=== PATIENT | male | born 1965 | race American Indian/Alaskan Native ===

== ENCOUNTER 2016-07-29 08:41 | Emergency (ER) | payer MEDICARE ==
[~2016-07-29 08:41] MED LIST: NACL 0.9% 500 ML IR ONE
[2016-07-29] MEDS ORDERED: NORVASC PO ONE (09:23)
--- NOTE | 2016-07-29 09:26 | Emergency Department Report ---
HPI - General Chief Complaint: Psych Time Seen by Provider: 07/29/16 09:20 - HPI HPI: This is a 51-year-old -Faro[place] male who presents to the emergency department with a complaint of depression and suicidal ideations. He does not have any particular plan as to what he would do but says "whenever comes up." He admits to a history of major depression and schizophrenia. He is on medications for this, as well as his history of hypertension, but says he has not been taking them lately secondary to his depression. He says he is depressed as he has had multiple deaths in his family back to back. He does have a previous history of inpatient psychiatric admissions and visits to [facility]. He otherwise denies any physical complaints at this time. He denies any illicit drug use or alcohol abuse. ED Past Medical Hx - Past Medical History Hx Hypertension: Yes Hx Diabetes: Yes (NO MEDICATIONS PRESCRIBED NOW) Hx Arthritis: Yes Hx Psychiatric Treatment: Yes (major depression; visual hallucinations; SI) - Surgical History Additional Surgical History: RIGHT KNEE (SCOPE). CIRCUMCISION -4 YEARS AGO - Social History Smoking Status: Never Smoker Substance Use Type: Alcohol, Cocaine, Marijuana - Medications Home Medications: Home Medications Medication Instructions Recorded Confirmed Last Taken Type ARIPiprazole [Abilify TAB] 20 mg PO QHS 12/24/15 07/29/16 05/27/16 History Abilify TAB 5 mg PO QAM 12/24/15 07/29/16 05/27/16 History Citalopram [Celexa] 40 mg PO QDAY 12/24/15 07/29/16 05/27/16 History amLODIPine [Norvasc] 10 mg PO DAILY 12/24/15 07/29/16 05/27/16 History busPIRone [Buspar] 5 mg PO TID 12/24/15 07/29/16 05/27/16 History traZODone [Desyrel] 100 mg PO QHS 12/24/15 07/29/16 05/27/16 History ED Review of Systems ROS: Stated complaint: MH Other details as noted in HPI Comment: All other systems reviewed and negative Constitutional: denies: chills, fever Eyes: denies: eye pain, eye discharge, vision change ENT: denies: ear pain, throat pain Respiratory: denies: cough, shortness of breath, wheezing Cardiovascular: denies: chest pain, palpitations Gastrointestinal: denies: abdominal pain, nausea, diarrhea Genitourinary: denies: urgency, dysuria Musculoskeletal: denies: back pain, joint swelling, arthralgia Skin: denies: rash, lesions Neurological: denies: headache, weakness, paresthesias Psychiatric: depression, suicidal thoughts. denies: auditory hallucinations, visual hallucinations Physical Exam - Physical Exam Vital Signs: Vital Signs 07/29/16 08:46 Temperature 98.3 F Pulse Rate 101 H Respiratory 20 Rate Blood Pressure 178/124 O2 Sat by Pulse 97 Oximetry Physical Exam: GENERAL: The patient is well-developed well-nourished. HEENT: Normocephalic. Atraumatic. Extraocular motions are intact. Patient has moist mucous membranes. Pupils equal reactive to light bilaterally. NECK: Supple. Trachea is midline. CHEST/LUNGS: Clear to auscultation. There is no respiratory distress noted. HEART/CARDIOVASCULAR: Regular. There is no tachycardia. There is no gallop rub or murmur. ABDOMEN: Abdomen is soft, nontender. Patient has normal bowel sounds. There is no abdominal distention. Morbidly obese habitus. SKIN: There is no rash. There is no edema. There is no diaphoresis. NEURO: The patient is awake, alert, and oriented. The patient is cooperative. The patient has no focal neurologic deficits. The patient has normal speech. MUSCULOSKELETAL: There is no tenderness or deformity. There is no limitation range of motion. There is no evidence of acute injury. ED Course Vital Signs 07/29/16 08:46 Temperature 98.3 F Pulse Rate 101 H Respiratory 20 Rate Blood Pressure 178/124 O2 Sat by Pulse 97 Oximetry ED Medical Decision Making - Lab Data Result diagrams: 07/29/16 09:39 07/29/16 09:39 - Medical Decision Making 51-year-old male presents with depression and suicidal ideations. He does have a history of depression and schizophrenia. Patient's labs are unremarkable and do not show any signs of infection, electrolyte abnormalities, renal insufficiency or significant glucose abnormalities. Blood alcohol levels negative. His vital signs of in stable throughout his ED course. He did have some hypertension but he was given his morning Norvasc and it came down to more reasonable level. Patient has been made a 1013 secondary to his suicidal ideations. He is medically cleared for psychiatric placement and the crisis therapist is been contacted to assist. - Differential Diagnosis depression, bipolar disorder, schizophrenia, substance abuse Critical Care Time: No Critical care attestation.: If time is entered above; I have spent that time in minutes in the direct care of this critically ill patient, excluding procedure time. ED Disposition Clinical Impression: Suicidal ideations Depression Qualifiers: Depression Type: unspecified Qualified Code(s): F32.9 - Major depressive disorder, single episode, unspecified Hypertension Qualifiers: Hypertension type: essential hypertension Qualified Code(s): I10 - Essential ( primary) hypertension Disposition: DC/TX PSY HOSP/PSY UNIT Is pt being admited?: No Condition: Stable Instructions: Hypertension (ED) Time of Disposition: 11:59
[2016-07-29 09:47] VITALS: BP 137/96
[2016-07-29 09:48] LABS: Basophils % (Auto) 0.8 % (0.0-1.8); Eosinophils % (Auto) 2.2 % (0.0-4.3); Hematocrit 46.4 % (35.5-45.6); Hemoglobin 15.3 gm/dl (11.8-15.2); Mean Corpuscular HGB Conc 33 % (32-34); Mean Corpuscular Hemoglobin 29 pg (28-32); Mean Corpuscular Volume 87 fl (84-94); Red Blood Count 5.31 M/mm3 (3.65-5.03); Red Cell Distribution Width 14.7 % (13.2-15.2); White Blood Count 10.5 K/mm3 (4.5-11.0)
[2016-07-29 09:52] LABS: Platelet Count 256 K/mm3 (140-440)
[2016-07-29 10:04] LABS: Anion Gap 17 mmol/L; BUN/Creatinine Ratio 13.33; Blood Urea Nitrogen 12 mg/dL (9-20); Calcium 8.6 mg/dL (8.4-10.2); Carbon Dioxide 24 mmol/L (22-30); Chloride 102.4 mmol/L (98-107); Glucose 121 mg/dL (75-100); Potassium 3.5 mmol/L (3.6-5.0); Sodium 140 mmol/L (137-145)
[2016-07-29 11:04] LABS: Urine Drugs of Abuse Note Disclamer
[2016-07-29 11:27] LABS: Bilirubin,Urine NEG (Negative); Blood,Urine NEG (Negative); Ketones,Urine TR mg/dL (Negative); Leukocyte Esterase,Urine NEG (Negative); Mucus,Urine 3+ /HPF; Nitrite,Urine NEG (Negative); Urobilinogen,Urine < 2.0 mg/dL (<2.0)
[2016-07-29] MEDS ORDERED: celeXA PO SCH (13:00)
[2016-07-29] MEDS ORDERED: BUSPAR PO SCH (14:00)
[2016-07-29] MEDS ORDERED: ABILIFY PO SCH (22:00)
[2016-07-30] MEDS ORDERED: ABILIFY PO SCH (10:00)
[2016-07-30] MEDS ORDERED: NORVASC PO SCH (10:00)
== END 2016-07-29 16:33 ==
LOC: ED 08:41
DX: F32.9 Major depressive disorder, single episode, unspecified (principal); R45.851 Suicidal ideations; I10 Essential (primary) hypertension; E11.9 Type 2 diabetes mellitus without complications; M19.90 Unspecified osteoarthritis, unspecified site; F14.10 Cocaine abuse, uncomplicated; F12.10 Cannabis abuse, uncomplicated
CPT/HCPCS: 36415; 80048; 80307; 81001; 85025; 99283; G0480; 80320

== ENCOUNTER 2017-05-16 02:02 | Emergency (ER) | payer MEDICARE ==
[2017-05-16 02:52] LABS: Basophils % (Auto) 0.5 % (0.0-1.8); Eosinophils % (Auto) 0.4 % (0.0-4.3); Hemoglobin 15.8 gm/dl (11.8-15.2); Mean Corpuscular HGB Conc 34 % (32-34); Mean Corpuscular Hemoglobin 29 pg (28-32); Mean Corpuscular Volume 86 fl (84-94); Platelet Count 243 K/mm3 (140-440); Red Blood Count 5.44 M/mm3 (3.65-5.03); Red Cell Distribution Width 14.4 % (13.2-15.2); White Blood Count 15.9 K/mm3 (4.5-11.0)
[2017-05-16 03:07] LABS: Calcium 9.2 mg/dL (8.4-10.2); Chloride 100.5 mmol/L (98-107); Potassium 3.7 mmol/L (3.6-5.0)
[2017-05-16 06:22] LABS: INR 1.07 (0.87-1.13)
[2017-05-16 06:23] LABS: Partial Thromboplastin Time 33.2 Sec. (24.2-36.6)
[2017-05-16 06:57] LABS: Urine Drugs of Abuse Note Disclamer
--- NOTE | 2017-05-16 07:06 | Cat Scan Report ---
FINAL REPORT EXAM: CT LOWER EXTREMITY RT WO CON HISTORY: Right Knee swelling TECHNIQUE: Routine axial imaging was obtained of the right knee without IV contrast with sagittal and coronal reconstructions. FINDINGS: There is moderate to severe tricompartmental osteoarthritic changes consisting of narrowing of all 3 compartments and varying degrees of marginal osteophytosis. There degenerative spurring superiorly and inferiorly. There is a moderate sized joint effusion. There are calcified loose bodies in the ventral aspect of the joint space measure up to 14.7 millimeters in diameter. There is no evidence of acute fracture. The subcutaneous tissues are unremarkable. IMPRESSION: Moderate to severe tricompartmental osteoarthritic changes with joint effusion. Multiple calcified loose bodies in the ventral aspect of the joint space. No evidence of fracture.
[2017-05-16 07:09] LABS: Bacteria,Urine 1+ /HPF (Negative); Bilirubin,Urine NEG (Negative); Blood,Urine NEG (Negative); Ketones,Urine NEG (Negative); Leukocyte Esterase,Urine NEG (Negative); Mucus,Urine 2+ /HPF; Nitrite,Urine NEG (Negative)
--- NOTE | 2017-05-16 07:09 | Emergency Department Report ---
ED Psych HPI - General Chief Complaint: Psych Stated Complaint: RT KNEE PAIN Time Seen by Provider: 05/16/17 04:58 Source: patient, EMS Mode of arrival: Stretcher Limitations: No Limitations - History of Present Illness Initial Comments: Patient presented to the ED complaining of suicide ideation. He wants to cut distraught with knife. This is because is been having right knee pain that will not go away. She also complained of right knee swelling. MD Complaint: suicidal ideation -: Gradual Associated Psychiatric Symptoms: depression, suicidal ideation Quality: constant Improves With: none Worsens With: none Context: significant life stressor, other (right knee pain and swelling.) Associated Symptoms: denies other symptoms Treatments Prior to Arrival: none If Self Harm: admits thoughts of, has plan - Related Data Home Medications Medication Instructions Recorded Confirmed Last Taken ARIPiprazole [Abilify TAB] 5 mg PO QAM 08/08/16 08/08/16 Unknown ARIPiprazole [Abilify TAB] 20 mg PO QHS 08/08/16 08/08/16 Unknown Citalopram Hydrobromide [celeXA] 40 mg PO DAILY 08/08/16 08/08/16 Unknown amLODIPine [Norvasc] 10 mg PO DAILY 08/08/16 08/08/16 Unknown busPIRone [Buspar] 5 mg PO TID 08/08/16 08/08/16 Unknown Previous Rx's Medication Instructions Recorded Last Taken Type Aspirin EC [Aspirin Enteric Coated 81 mg PO QDAY #30 tablet. 08/09/16 Unknown Rx TAB] ISOSORBIDE MONOnitrate [Imdur ER] 30 mg PO QDAY #30 tablet 08/10/16 Unknown Rx Allergies Allergy/AdvReac Type Severity Reaction Status Date / Time No Known Allergies Allergy Verified 05/26/16 12:55 ED Review of Systems ROS: Stated complaint: RT KNEE PAIN Other details as noted in HPI Constitutional: denies: chills, fever Eyes: denies: eye pain, eye discharge, vision change ENT: denies: ear pain, throat pain Respiratory: denies: cough, shortness of breath, wheezing Cardiovascular: denies: chest pain, palpitations Endocrine: no symptoms reported Gastrointestinal: denies: abdominal pain, nausea, diarrhea Genitourinary: denies: urgency, dysuria Musculoskeletal: joint swelling (right knee swelling and pain.). denies: back pain, arthralgia Skin: denies: rash, lesions Neurological: denies: headache, weakness, paresthesias Psychiatric: depression, suicidal thoughts. denies: anxiety, auditory hallucinations, visual hallucinations, homicidal thoughts Hematological/Lymphatic: denies: easy bleeding, easy bruising ED Past Medical Hx - Past Medical History Previous Medical History?: Yes Hx Hypertension: Yes Hx Congestive Heart Failure: No Hx Diabetes: Yes (NO MEDICATIONS PRESCRIBED NOW) Hx Arthritis: Yes Hx Psychiatric Treatment: Yes (major depression; visual hallucinations; SI) Hx Asthma: No Hx COPD: No - Surgical History Past Surgical History?: Yes Additional Surgical History: RIGHT KNEE (SCOPE). CIRCUMCISION -4 YEARS AGO - Social History Smoking Status: Never Smoker Substance Use Type: Alcohol, Cocaine, Heroin - Medications Home Medications: Home Medications Medication Instructions Recorded Confirmed Last Taken Type ARIPiprazole [Abilify TAB] 5 mg PO QAM 08/08/16 08/08/16 Unknown History ARIPiprazole [Abilify TAB] 20 mg PO QHS 08/08/16 08/08/16 Unknown History Citalopram Hydrobromide [celeXA] 40 mg PO DAILY 08/08/16 08/08/16 Unknown History amLODIPine [Norvasc] 10 mg PO DAILY 08/08/16 08/08/16 Unknown History busPIRone [Buspar] 5 mg PO TID 08/08/16 08/08/16 Unknown History Aspirin EC [Aspirin Enteric Coated 81 mg PO QDAY #30 tablet.dr 08/09/16 Unknown Rx TAB] ISOSORBIDE MONOnitrate [Imdur ER] 30 mg PO QDAY #30 tablet 08/10/16 Unknown Rx ED Physical Exam - General Limitations: Physical Limitation General appearance: alert, in no apparent distress - Head Head exam: Present: atraumatic, normocephalic - Eye Eye exam: Present: normal appearance - ENT ENT exam: Present: mucous membranes moist - Neck Neck exam: Present: normal inspection - Respiratory Respiratory exam: Present: normal lung sounds bilaterally. Absent: respiratory distress - Cardiovascular Cardiovascular Exam: Present: regular rate, normal rhythm. Absent: systolic murmur, diastolic murmur, rubs, gallop - GI/Abdominal GI/Abdominal exam: Present: soft, normal bowel sounds - Rectal Rectal exam: Present: deferred - Extremities Exam Extremities exam: Present: tenderness (right knee), normal capillary refill, joint swelling (right knee). Absent: pedal edema, calf tenderness - Expanded Lower Extremity Exam Right Knee exam: Present: tenderness, swelling, effusion - Back Exam Back exam: Present: normal inspection - Neurological Exam Neurological exam: Present: alert, oriented X3 - Psychiatric Psychiatric exam: Present: normal affect, normal mood - Skin Skin exam: Present: warm, dry, intact, normal color. Absent: rash ED Course Vital Signs 05/16/17 05/16/17 05/16/17 02:23 02:44 03:01 Temperature 98.5 F Pulse Rate 20 L 104 H 85 Respiratory 20 18 18 Rate Blood Pressure 92/69 98/74 101/77 [Left] O2 Sat by Pulse 98 99 99 Oximetry 05/16/17 05/16/17 05/16/17 04:00 05:02 06:56 Temperature Pulse Rate 94 H 97 H Respiratory 20 20 20 Rate Blood Pressure 115/47 126/82 [Left] O2 Sat by Pulse 99 99 98 Oximetry ED Medical Decision Making - Lab Data Result diagrams: 05/16/17 02:39 05/16/17 02:39 - Medical Decision Making Patient is medically cleared for psychiatric evaluation. - Differential Diagnosis right knee pain, arthritis, suicide ideation with a plan. Critical care attestation.: If time is entered above; I have spent that time in minutes in the direct care of this critically ill patient, excluding procedure time. ED Disposition Clinical Impression: Suicide ideation, Arthritis of right knee Disposition: DC/TX-65 PSY HOSP/PSY UNIT Is pt being admited?: No Does the pt Need Aspirin: No Condition: Stable Referrals: PRIMARY CARE, [Primary Care Provider] - 3-5 Days
--- NOTE | 2017-05-16 08:17 | XRay Report ---
XRAY RIGHT KNEE 2 VIEWS: 05/16/17 02:02:00 CLINICAL: Fall and knee pain. FINDINGS: Severe narrowing of the lateral joint space with large osteophytes. Medial joint space narrowing with osteophytes. A varus deformity. Severe patellofemoral joint osteoarthritis. Probable small knee joint effusion. Anterior subcutaneous soft tissue edema. No fracture or dislocation. IMPRESSION: Severe osteoarthritis and probable small knee joint effusion.
[2017-05-16 08:31] VITALS: BP 132/68
[2017-05-16] MEDS ORDERED: TYLENOL PO ONE (10:01)
[2017-05-16] MEDS ORDERED: MOTRIN PO ONE (10:01)
--- NOTE | 2017-05-16 11:29 | Consultation ---
History of Present Illness - Reason for Consult Consult date: 05/16/17 Reason for consult: Mental Health Evaluation Requesting physician: FLAKITO MENDES - Chief Complaint Chief complaint: "I am suicidal" - History of Present Psychiatric Illness Patient presented to the ED complaining of SI's. Today patient is calm and cooperative during the assessment. He stated that he have not taken his medication foe depression in 7 days. He stated that his right knee is giving him problem so he could not make it to the pharmacy to fill his prescriptions. He stated that he do not like his current care home because of the drugs that' s in the area. He stated that he is stressed out about everything in his life. He still endorses SI' with a plan to overdose. He stated past suicide attempts by cutting his wrist and overdosing on pills. He stated using cocaine often to help with his depression symptoms. He stated that he hear voices when he use cocaine, but currently none at this time. He stated that a lot of his family members during and hols, so he feels depressed a lot during this time a year. He denies HI's and AVH's. He admit to sleep disturbance , but denies any manic episodes. He denies excessive alcohol consumption (etoh) . He rate his depression 7/10, with 10 being the worse. Medications and Allergies Allergies Allergy/AdvReac Type Severity Reaction Status Date / Time No Known Allergies Allergy Verified 05/26/16 12:55 Home Medications Medication Instructions Recorded Confirmed Last Taken Type ARIPiprazole [Abilify TAB] 5 mg PO QAM 08/08/16 08/08/16 Unknown History ARIPiprazole [Abilify TAB] 20 mg PO QHS 08/08/16 08/08/16 Unknown History Citalopram Hydrobromide [celeXA] 40 mg PO DAILY 08/08/16 08/08/16 Unknown History amLODIPine [Norvasc] 10 mg PO DAILY 08/08/16 08/08/16 Unknown History busPIRone [Buspar] 5 mg PO TID 08/08/16 08/08/16 Unknown History Aspirin EC [Aspirin Enteric Coated 81 mg PO QDAY #30 tablet. 08/09/16 Unknown Rx TAB] ISOSORBIDE MONOnitrate [Imdur ER] 30 mg PO QDAY #30 tablet 08/10/16 Unknown Rx Past psychiatric history - Past Medical History Past Medical History: diabetes, other (right knee pain) Past Surgical History: No surgical history - past Psychiatric treatment and history Psych: Depression psychiatric treatment history: Multiple inpatient psy settings. Denies a fam psy hx. - Social History Social history: other (Resides at a care home) Mental Status Exam - Vital signs Last Vital Signs Temp 98.3 F 05/16/17 08:15 Pulse 86 05/16/17 08:15 Resp 18 05/16/17 08:15 BP 132/68 05/16/17 08:15 Pulse Ox 97 05/16/17 08:15 - Exam Narrative exam: MSE: Appearance: calm, cooperative Behavior: regular eye contact Speech: regular rate and tone Mood: "depressed" Affect: flat Thought Process: circumstantial Thought Content: denies HI's and AVH's Motor Activity: ambulatory Cognition: A/O x3 Insight: fair Judgment: variable Results Result Diagrams: 05/16/17 02:39 05/16/17 02:39 Abnormal lab results 05/16/17 05/16/17 Range/Units 02:39 02:39 WBC 15.9 H (4.5-11.0) K/mm3 RBC 5.44 H (3.65-5.03) M/mm3 Hgb 15.8 H (11.8-15.2) gm/dl Hct 47.0 H (35.5-45.6) % Bradley % (Auto) 14.5 H (0.0-7.3) % Bradley # 2.3 H (0.0-0.8) K/mm3 Seg Neutrophils % 70.8 H (40.0-70.0) % Seg Neutrophils # 11.3 H (1.8-7.7) K/mm3 Glucose 103 H (75-100) mg/dL All other labs normal. Assessment and Plan Assessment and plan: Impression: MDD Severe Type. SAD. Today patient is calm and cooperative during the assessment. Patient endorses SI's with a plan. DDx: R/O Bipolar Recommendation/Plan: Continue 1013 with placement to inpatient psy services. Start Remeron 15 mg PO HS for depression/sleep consolidation. Discussed possible suicidality/medication induced lizzy with patient reference Remeron. Fund Director involvement, patient may need placement to a new care home.
[2017-05-16] MEDS ORDERED: REMERON PO SCH (22:00)
== END 2017-05-16 13:06 ==
LOC: ED 02:02
DX: R45.851 Suicidal ideations (principal); M25.561 Pain in right knee
CPT/HCPCS: 29505; 36415; 73560; 73700; 80048; 80307; 81001; 84443; 85025; 85610; 85730; 87040; 99285; G0480; 80320

== ENCOUNTER 2017-09-03 07:17 | Inpatient (IN) | payer MEDICARE ==
--- NOTE | 2017-09-03 08:25 | XRay Report ---
ROUTINE CHEST, TWO VIEWS: HISTORY: Shortness of breath. Compared to 08/08/16. There is poor inspiration, however, mild cardiomegaly and mild central pulmonary venous congestion are suspected. The lungs are generally clear otherwise. No large infiltrate, pleural effusion or pneumothorax. IMPRESSION: Mild cardiomegaly and pulmonary venous congestion but no CHF.
[2017-09-03 08:43] LABS: Basophils % (Auto) 0.4 % (0.0-1.8); Eosinophils % (Auto) 0.2 % (0.0-4.3); Lymphocytes # (Auto) 0.7 K/mm3 (1.2-5.4); Mean Corpuscular HGB Conc 34 % (32-34); Mean Corpuscular Hemoglobin 29 pg (28-32); Mean Corpuscular Volume 86 fl (84-94); Monocytes # (Auto) 1.3 K/mm3 (0.0-0.8); Monocytes % (Auto) 11.5 % (0.0-7.3); Platelet Count 261 K/mm3 (140-440); Red Blood Count 5.79 M/mm3 (3.65-5.03); Red Cell Distribution Width 15.6 % (13.2-15.2)
[2017-09-03 08:46] LABS: BUN/Creatinine Ratio 18; Blood Urea Nitrogen 11 mg/dL (9-20); Calcium 8.8 mg/dL (8.4-10.2); Hemolysis Index 92
[2017-09-03 09:10] LABS: Bilirubin,Urine MOD (Negative); Blood,Urine SM (Negative); Color,Urine Amber (Yellow); Mucus,Urine 3+ /HPF
[2017-09-03 09:14] LABS: Ictotest,Urine Positive (Negative)
[2017-09-03 09:25] LABS: Lipase 1925 units/L (13-60)
[2017-09-03] MEDS ORDERED: NACL 0.9% 1000 ML 1,000 ML IV ONE (10:54)
[2017-09-03] MEDS ORDERED: ZOFRAN IV ONE (10:54)
[2017-09-03] MEDS ORDERED: MORPHINE IV ONE (10:54)
--- NOTE | 2017-09-03 10:58 | Emergency Department Report ---
ED Abdominal Pain HPI - General Chief Complaint: Abdominal Pain Stated Complaint: ABD PAIN Time Seen by Provider: 09/03/17 10:48 Source: patient Mode of arrival: Ambulatory Limitations: No Limitations - History of Present Illness Initial Comments: Patient is 52 years old -Surinamese male with history of hypertension and arthritis. Patient presented to the ER with epigastric abdominal pain, started last night after he ate a hamburger [place]. Pain associated with nausea and vomiting. Patient denied any fever or diarrhea. No chest pain or shortness of breath MD Complaint: abdominal pain -: Last night Location: epigastric Radiation: none Severity scale (0 -10): 6 - Related Data Home Medications Medication Instructions Recorded Confirmed Last Taken ARIPiprazole [Abilify] 10 mg PO QAM 09/03/17 09/03/17 09/03/17 Meloxicam [Mobic] 15 mg PO DAILY 09/03/17 09/03/17 09/03/17 traZODone [Desyrel] 200 mg PO QHS 09/03/17 09/03/17 09/02/17 Allergies Allergy/AdvReac Type Severity Reaction Status Date / Time No Known Allergies Allergy Verified 05/26/16 12:55 ED Review of Systems ROS: Stated complaint: ABD PAIN Other details as noted in HPI Comment: All other systems reviewed and negative Constitutional: denies: chills, fever Respiratory: denies: cough, orthopnea, shortness of breath, SOB with exertion, SOB at rest Cardiovascular: denies: chest pain, palpitations, dyspnea on exertion, orthopnea Gastrointestinal: abdominal pain, nausea, vomiting. denies: diarrhea, constipation, hematemesis, melena, hematochezia Genitourinary: denies: urgency, dysuria, frequency, hematuria Musculoskeletal: denies: back pain Neurological: denies: headache, weakness, numbness, paresthesias, confusion ED Past Medical Hx - Past Medical History Previous Medical History?: Yes Hx Hypertension: Yes Hx Congestive Heart Failure: No Hx Diabetes: Yes (NO MEDICATIONS PRESCRIBED NOW) Hx Arthritis: Yes Hx Psychiatric Treatment: Yes (major depression; visual hallucinations; SI) Hx Asthma: No Hx COPD: No - Surgical History Past Surgical History?: Yes Additional Surgical History: RIGHT KNEE (SCOPE). CIRCUMCISION -4 YEARS AGO - Social History Smoking Status: Never Smoker Substance Use Type: Prescribed - Medications Home Medications: Home Medications Medication Instructions Recorded Confirmed Last Taken Type ARIPiprazole [Abilify] 10 mg PO QAM 09/03/17 09/03/17 09/03/17 History Meloxicam [Mobic] 15 mg PO DAILY 09/03/17 09/03/17 09/03/17 History traZODone [Desyrel] 200 mg PO QHS 09/03/17 09/03/17 09/02/17 History ED Physical Exam - General Limitations: No Limitations General appearance: alert, in distress (due to pain.) - Head Head exam: Present: atraumatic, normocephalic, normal inspection - ENT ENT exam: Present: normal exam, normal orophraynx, mucous membranes moist - Neck Neck exam: Present: normal inspection, full ROM. Absent: tenderness, meningismus, lymphadenopathy - Respiratory Respiratory exam: Present: normal lung sounds bilaterally. Absent: respiratory distress, wheezes, rales, rhonchi, stridor, chest wall tenderness, accessory muscle use, decreased breath sounds, prolonged expiratory - Cardiovascular Cardiovascular Exam: Present: regular rate, normal rhythm, normal heart sounds - GI/Abdominal GI/Abdominal exam: Present: soft, tenderness, normal bowel sounds. Absent: distended, guarding, rebound, rigid, organomegaly, mass, bruit, pulsatile mass, hernia - Extremities Exam Extremities exam: Present: normal inspection, full ROM, normal capillary refill - Back Exam Back exam: Present: normal inspection, full ROM. Absent: CVA tenderness (R), CVA tenderness (L) - Neurological Exam Neurological exam: Present: alert, oriented X3, CN II-XII intact, normal gait - Psychiatric Psychiatric exam: Present: normal affect - Skin Skin exam: Present: warm, intact, normal color ED Course Vital Signs 09/03/17 09/03/17 07:42 09:18 Temperature 97.8 F Pulse Rate 100 H Respiratory 24 Rate Blood Pressure 208/135 Blood Pressure 136/106 [Right] O2 Sat by Pulse 95 Oximetry ED Medical Decision Making - Lab Data Result diagrams: 09/03/17 08:14 09/03/17 08:14 - Radiology Data Radiology results: report reviewed Referring Physician: SANTA CESAR Patient Name: ANNY TESFAYE Date of : 1965 Sex: Male Report Date: 2017-09-03 Report Status: Finalized Findings [facility] [address] [place] [address] Cat Scan Report Signed Patient: ANNY TESFAYE MR#: [id number] : 1965 Acct:[id number] Age/Sex: 52 / M ADM Date: 09/03/17 Loc: ED Attending Dr: Ordering Physician: SANTA CESAR Date of Service: 09/03/17 Procedure(s): CT abdomen pelvis w con Accession Number(s): [id number] cc: SANTA CESAR CT ABDOMEN PELVIS WITH CONTRAST: HISTORY: abdominal pain. COMPARISON: none. TECHNIQUE: Helical CT in 1.25mm intervals following IV contrast. Sagittal and coronal reconstructions. FINDINGS: Lung bases: Normal. Liver: Normal. Biliary system: Within normal limits. No calcified gallstones are detected. Pancreas: The pancreas is diffusely thickened and edematous. There is moderate fluid surrounding the pancreatic bed and extending to the left anterior pararenal space. No abscess, free air or large pseudocyst is identified. Spleen: Normal. Kidneys/ureters/bladder: Normal. Adrenal glands: Normal. Aorta: Normal. Intestines: Normal. Appendix: Normal. Pelvic viscera: Normal. Adenopathy: None. Musculoskeletal: Moderate osteoarthritic changes in the lower lumbar spine and bilateral hips. IMPRESSION: Acute pancreatitis. Transcribed By: TTR Dictated By: ROSEMARY MCLEAN JR, MD Electronically Authenticated By: ROSEMARY MCLEAN JR, MD Signed Date/Time: 09/03/17 1159 DD/ 56 TD/TT: 09/03/17 115 - Medical Decision Making Discussed with Dr. Gutierres, I presented the patient to him, he agreed to admit to his service. Critical care attestation.: If time is entered above; I have spent that time in minutes in the direct care of this critically ill patient, excluding procedure time. ED Disposition Clinical Impression: Morbid obesity, Acute pancreatitis, Abdominal pain Disposition: OP ADMIT IP TO THIS HOSP Is pt being admited?: Yes Condition: Stable Referrals: PRIMARY CARE, [Primary Care Provider] - 3-5 Days
[2017-09-03 11:24] LABS: Albumin 3.3 g/dL (3.9-5); Bilirubin,Direct 1.8 mg/dL (0-0.2)
--- NOTE | 2017-09-03 12:07 | Cat Scan Report ---
CT ABDOMEN PELVIS WITH CONTRAST: HISTORY: abdominal pain. COMPARISON: none. TECHNIQUE: Helical CT in 1.25mm intervals following IV contrast. Sagittal and coronal reconstructions. FINDINGS: Lung bases: Normal. Liver: Normal. Biliary system: Within normal limits. No calcified gallstones are detected. Pancreas: The pancreas is diffusely thickened and edematous. There is moderate fluid surrounding the pancreatic bed and extending to the left anterior pararenal space. No abscess, free air or large pseudocyst is identified. Spleen: Normal. Kidneys/ureters/bladder: Normal. Adrenal glands: Normal. Aorta: Normal. Intestines: Normal. Appendix: Normal. Pelvic viscera: Normal. Adenopathy: None. Musculoskeletal: Moderate osteoarthritic changes in the lower lumbar spine and bilateral hips. IMPRESSION: Acute pancreatitis.
[2017-09-03] MEDS ORDERED: APRESOLINE IV ONE (14:46)
[2017-09-03] MEDS ORDERED: APRESOLINE ONE (14:51)
[2017-09-03] MEDS ORDERED: SODIUM CHLORIDE FLUSH SYRINGE 10 ML IV PRN (17:02)
[2017-09-03] MEDS ORDERED: MORPHINE IV PRN (17:02)
[2017-09-03] MEDS ORDERED: TYLENOL PO PRN (17:02)
[2017-09-03] MEDS ORDERED: ZOFRAN IV PRN (17:02)
--- NOTE | 2017-09-03 17:02 | History and Physical Report ---
History of Present Illness Date of examination: 09/03/17 Date of admission: 09/03/17 13:42 Chief complaint: CC Severe epigastric pain since last night History of present illness: History of Present Illness: 52 y/o AAM morbidly obese with history of DJD Depression and schizophrenia comes in for severe epigastric pain since last night after eating a Hamburger.Pain is sharp and 10/10.Associated with Nausea.No similar episodes in the past.No sob.No fever or chills.No recent travel.No exacerbating or relieving factors. Past Medical History Hypertension: Yes Diabetes: Yes (NO MEDICATIONS PRESCRIBED NOW) Arthritis: Yes, Major depression; Visual hallucinations; SI) Surgical History Past Surgical History?: Yes Additional Surgical History: RIGHT KNEE (SCOPE). CIRCUMCISION -4 YEARS AGO Social History Smoking Status: Never Smoker Substance Use Type: Prescribed Family History Htn Medications Home Medications: Home Medications Medication Instructions Recorded Confirmed Last Taken Type ARIPiprazole [Abilify] 10 mg PO QAM 09/03/17 09/03/17 09/03/17 History Meloxicam [Mobic] 15 mg PO DAILY 09/03/17 09/03/17 09/03/17 History traZODone [Desyrel] 200 mg PO QHS 09/03/17 09/03/17 09/02/17 History Review of Systems ROS: Stated complaint: ABD PAIN Other details as noted in HPI Comment: All other systems reviewed and negative Constitutional: denies: chills, fever Respiratory: denies: cough, orthopnea, shortness of breath, SOB with exertion, SOB at rest Cardiovascular: denies: chest pain, palpitations, dyspnea on exertion, orthopnea Gastrointestinal: abdominal pain, nausea, vomiting. denies: diarrhea, constipation, hematemesis, melena, hematochezia Genitourinary: denies: urgency, dysuria, frequency, hematuria Musculoskeletal: denies: back pain Neurological: denies: headache, weakness, numbness, paresthesias, confusion Medications and Allergies Allergies Allergy/AdvReac Type Severity Reaction Status Date / Time No Known Allergies Allergy Verified 05/26/16 12:55 Home Medications Medication Instructions Recorded Confirmed Last Taken Type ARIPiprazole [Abilify] 10 mg PO QAM 09/03/17 09/03/17 09/03/17 History Meloxicam [Mobic] 15 mg PO DAILY 09/03/17 09/03/17 09/03/17 History traZODone [Desyrel] 200 mg PO QHS 09/03/17 09/03/17 09/02/17 History Active Meds: Active Medications Influenza Virus Vaccine Quadrival (Fluarix Quad 4990-4121(36 Mos+) 0.5 ml IM .ONCE ONE Stop: 09/04/17 12:01 Pneumococcal Polyvalent Vaccine (Pneumovax 23) 0.5 ml IM .ONCE ONE Stop: 09/04/17 12:01 Exam - Constitutional Vitals: Temp Pulse Resp BP Pulse Ox 97.8 F 92 H 16 151/93 98 09/03/17 07:42 09/03/17 15:46 09/03/17 15:46 09/03/17 15:46 09/03/17 15:46 General appearance: Present: no acute distress, well-nourished - EENT Eyes: Present: PERRL ENT: hearing intact, clear oral mucosa - Neck Neck: Present: supple, normal ROM - Respiratory Respiratory effort: normal Respiratory: bilateral: CTA - Cardiovascular Heart rate: 80 Rhythm: regular Heart Sounds: Present: S1 & S2. Absent: rub, click - Extremities Extremities: no ischemia, pulses intact, pulses symmetrical, No edema Peripheral Pulses: within normal limits - Abdominal General gastrointestinal: Present: tender, non-distended, normal bowel sounds Localized gastrointestinal: tender: diffuse, guarding: epigastric periumbilical Male genitourinary: Present: normal - Rectal Rectal Exam: deferred - Integumentary Integumentary: Present: clear, warm, dry - Musculoskeletal Musculoskeletal: gait normal, strength equal bilaterally - Psychiatric Psychiatric: appropriate mood/affect, intact judgment & insight - Neurologic Neurologic: CNII-XII intact, moves all extremities - Allied Health Allied health notes reviewed: nursing, case management Results - Labs CBC & Chem 7: 09/03/17 08:14 09/03/17 08:14 Labs: Laboratory Last Values WBC 10.9 K/mm3 (4.5-11.0) 09/03/17 08:14 RBC 5.79 M/mm3 (3.65-5.03) H 09/03/17 08:14 Hgb 17.0 gm/dl (11.8-15.2) H 09/03/17 08:14 Hct 50.0 % (35.5-45.6) H 09/03/17 08:14 MCV 86 fl (84-94) 09/03/17 08:14 MCH 29 pg (28-32) 09/03/17 08:14 MCHC 34 % (32-34) 09/03/17 08:14 RDW 15.6 % (13.2-15.2) H 09/03/17 08:14 Plt Count 261 K/mm3 (140-440) 09/03/17 08:14 Lymph % (Auto) 6.0 % (13.4-35.0) L 09/03/17 08:14 [place] % (Auto) 11.5 % (0.0-7.3) H 09/03/17 08:14 Eos % (Auto) 0.2 % (0.0-4.3) 09/03/17 08:14 Baso % (Auto) 0.4 % (0.0-1.8) 09/03/17 08:14 Lymph # 0.7 K/mm3 (1.2-5.4) L 09/03/17 08:14 [place] # 1.3 K/mm3 (0.0-0.8) H 09/03/17 08:14 Eos # 0.0 K/mm3 (0.0-0.4) 09/03/17 08:14 Baso # 0.0 K/mm3 (0.0-0.1) 09/03/17 08:14 Seg Neutrophils % 81.9 % (40.0-70.0) H 09/03/17 08:14 Seg Neutrophils # 8.9 K/mm3 (1.8-7.7) H 09/03/17 08:14 Sodium 138 mmol/L (137-145) 09/03/17 08:14 Potassium 3.6 mmol/L (3.6-5.0) 09/03/17 08:14 Chloride 97.1 mmol/L (98-107) L 09/03/17 08:14 Carbon Dioxide 24 mmol/L (22-30) 09/03/17 08:14 Anion Gap 21 mmol/L 09/03/17 08:14 BUN 11 mg/dL (9-20) 09/03/17 08:14 Creatinine 0.6 mg/dL (0.8-1.5) L 09/03/17 08:14 Estimated GFR > 60 ml/min 09/03/17 08:14 BUN/Creatinine Ratio 18 % 09/03/17 08:14 Glucose 184 mg/dL (75-100) H 09/03/17 08:14 Calcium 8.8 mg/dL (8.4-10.2) 09/03/17 08:14 Total Bilirubin 3.00 mg/dL (0.1-1.2) H 09/03/17 08:14 Direct Bilirubin 1.8 mg/dL (0-0.2) H 09/03/17 08:14 Indirect Bilirubin 1.2 mg/dL 09/03/17 08:14 AST 228 units/L (5-40) H 09/03/17 08:14 ALT 174 units/L (7-56) H 09/03/17 08:14 Alkaline Phosphatase 264 units/L (35-129) H 09/03/17 08:14 Troponin T < 0.010 ng/mL (0.00-0.029) 09/03/17 08:14 Total Protein 7.7 g/dL (6.3-8.2) 09/03/17 08:14 Albumin 3.3 g/dL (3.9-5) L 09/03/17 08:14 Albumin/Globulin Ratio 0.8 % 09/03/17 08:14 Lipase 1925 units/L (13-60) H 09/03/17 08:14 Urine Color [place] (Yellow) 09/03/17 Unknown Urine Turbidity Clear (Clear) 09/03/17 Unknown Urine pH 5.0 (5.0-7.0) 09/03/17 Unknown Ur Specific [place] 1.020 (1.003-1.030) 09/03/17 Unknown Urine Protein 30 mg/dl mg/dL (Negative) 09/03/17 Unknown Urine Glucose (UA) Neg mg/dL (Negative) 09/03/17 Unknown Urine Ketones Neg mg/dL (Negative) 09/03/17 Unknown Urine Blood Sm (Negative) 09/03/17 Unknown Urine Nitrite Neg (Negative) 09/03/17 Unknown Urine Bilirubin Mod (Negative) 09/03/17 Unknown Urine Ictotest Positive (Negative) 09/03/17 Unknown Urine Urobilinogen 4.0 mg/dL (<2.0) 09/03/17 Unknown Ur Leukocyte Esterase Neg (Negative) 09/03/17 Unknown Urine WBC (Auto) 5.0 /HPF (0.0-6.0) 09/03/17 Unknown Urine RBC (Auto) 5.0 /HPF (0.0-6.0) 09/03/17 Unknown U Epithel Cells (Auto) 3.0 /HPF (0-13.0) 09/03/17 Unknown Urine Mucus 3+ /HPF 09/03/17 Unknown - Imaging and Cardiology CT scan - abdomen: report reviewed (C/w Pancreatitis) Assessment and Plan Advance Directives: Yes (Full code) VTE prophylaxis?: Mechanical Plan of care discussed with patient/family: Yes - Patient Problems (1) Acute pancreatitis Current Visit: Yes Status: Acute Qualifiers: Pancreatitis type: idiopathic Plan to address problem: Probably sec to gall stone Liver enzymes elevated CT Abdomen c/w Pancreatitis NPO IV fluids IV Analgesics TPN after 72 hrs if necessary Lipase is 1925 (2) Gall stone pancreatitis Current Visit: Yes Status: Acute Plan to address problem: Same as above (3) Transaminitis Current Visit: Yes Status: Acute Plan to address problem: sec to Gall stone induced Hepatitis GI consult HIDA scan ???-will defer to Hospitalist team. (4) Morbid obesity Current Visit: Yes Status: Chronic Plan to address problem: Counselled (5) Malnutrition Current Visit: Yes Status: Chronic Qualifiers: Malnutrition type: protein-calorie malnutrition Protein-calorie malnutrition severity: mild Qualified Code(s): E44.1 - Mild protein-calorie malnutrition Plan to address problem: Dietary consult (6) Depression Current Visit: Yes Status: Chronic Qualifiers: Depression Type: unspecified Qualified Code(s): F32.9 - Major depressive disorder, single episode, unspecified Plan to address problem: Cont Psych meds (7) Schizophrenia in remission Current Visit: Yes Status: Chronic Plan to address problem: Cont psych meds (8) DVT prophylaxis Current Visit: Yes Status: Acute Plan to address problem: On Heparin
[2017-09-03] MEDS: D5NS 1,000 ML IV SCH (17:29)
[2017-09-03] MEDS: DILAUDID IV PRN ×2 (17:29→21:06)
[2017-09-03] MEDS: DESYREL PO SCH (21:06)
[2017-09-03] MEDS: PEPCID IV SCH (21:06)
[2017-09-03] MEDS: SODIUM CHLORIDE FLUSH SYRINGE 10 ML IV SCH (21:08)
[2017-09-04] MEDS: D5NS 1,000 ML IV SCH (02:06)
[2017-09-04] MEDS: DILAUDID IV PRN ×4 (02:06→17:12)
[2017-09-04] MEDS ORDERED: NACL 0.9% 1000 ML 1,000 ML IV SCH (05:00)
[2017-09-04 06:54] LABS: Basophils % (Auto) 0.2 % (0.0-1.8); Hematocrit 47.3 % (35.5-45.6); Hemoglobin 15.3 gm/dl (11.8-15.2); Lymphocytes # (Auto) 0.9 K/mm3 (1.2-5.4); Lymphocytes % (Auto) 6.3 % (13.4-35.0); Mean Corpuscular HGB Conc 32 % (32-34); Mean Corpuscular Hemoglobin 29 pg (28-32); Mean Corpuscular Volume 88 fl (84-94); Monocytes # (Auto) 2.1 K/mm3 (0.0-0.8); Monocytes % (Auto) 15.2 % (0.0-7.3); Platelet Count 234 K/mm3 (140-440); Red Blood Count 5.37 M/mm3 (3.65-5.03); Red Cell Distribution Width 16.1 % (13.2-15.2)
[2017-09-04 07:17] LABS: Lipase 286 units/L (13-60)
[2017-09-04 07:19] LABS: Alanine Aminotransferase 153 units/L (7-56); BUN/Creatinine Ratio 27; Blood Urea Nitrogen 16 mg/dL (9-20); Calcium 8.6 mg/dL (8.4-10.2); Hemolysis Index 5
[2017-09-04 07:23] LABS: Bilirubin,Direct 4.2 mg/dL (0-0.2)
[2017-09-04] MEDS ORDERED: KCL 10MEQ/100ML 10 MEQ/100 ML BAG IV SCH (09:00)
--- NOTE | 2017-09-04 09:40 | Gastroenterology Consultation ---
<JIMMY GRANADOS - Last Filed: 09/04/17 09:56> History of Present Illness - Reason for Consult Consult date: 09/04/17 pancreatitis Requesting physician: PRASAD MEJÍA - History of Present Illness Patient is a 52 y/o male with PMH of morbid obesity, HTN, DM, arthritis, DJD depression, and schizophrenia who presented to ED with c/o epigastric pain with associated N/V. LFTs and lipase was noted to be elevated on admission. Abd CT showed acute pancreatitis. Abd U/S is pending. This morning pt was sitting on the side of the bed w/o acute distress. He reports epigastric pain is intermittent and radiates to LUQ and RUQ. N/V is now improving. Symptoms exacerbated with PO intake. Denies fever, CP, SOB, jaundice, heartburn, dysphagia, odynophagia, diarrhea, constipation, or signs of bleeding such as hematemesis, melena, or hematochezia. No hx or Fhx of liver disease. Drinks on average a 12pk of beer a month. Past History Past Medical History: arthritis, diabetes, hypertension, other (DJD depression, schizophrenia, morbid obesity) Past Surgical History: Other (right knee scope, circumcision) Social history: other (drinks 12pk a month of beer). denies: smoking Medications and Allergies Allergies Allergy/AdvReac Type Severity Reaction Status Date / Time No Known Allergies Allergy Verified 05/26/16 12:55 Home Medications Medication Instructions Recorded Confirmed Last Taken Type ARIPiprazole [Abilify] 10 mg PO QAM 09/03/17 09/03/17 09/03/17 History Meloxicam [Mobic] 15 mg PO DAILY 09/03/17 09/03/17 09/03/17 History traZODone [Desyrel] 200 mg PO QHS 09/03/17 09/03/17 09/02/17 History Active Meds: Active Medications Acetaminophen (Tylenol) 650 mg PO Q4H PRN PRN Reason: Pain MILD(1-3)/Fever >100.5/BYNUM Aripiprazole (Abilify) 10 mg PO QAM LEV Famotidine (Pepcid) 20 mg IV BID LEV Last Admin: 09/03/17 21:06 Dose: 20 mg Heparin Sodium (Porcine) (Heparin) 5,000 unit SUB-Q Q12HR [facility] Hydromorphone HCl (Dilaudid) 1 mg IV Q3H PRN PRN Reason: Pain , Severe (7-10) Last Admin: 09/04/17 06:27 Dose: 1 mg Sodium Chloride (Nacl 0.9% 1000 Ml) 1,000 mls @ 200 mls/hr IV DIRECT LEV Last Admin: 09/04/17 06:28 Dose: 200 mls/hr Potassium Chloride 40 meq/ (Sodium Chloride) 520 mls @ 125 mls/hr IV ONCE ONE Stop: 09/04/17 14:09 Influenza Virus Vaccine Quadrival (Fluarix Quad [id number](36 Mos+) 0.5 ml IM .ONCE ONE Stop: 09/04/17 12:01 Morphine Sulfate (Morphine) 2 mg IV Q4H PRN PRN Reason: Pain, Moderate (4-6) Ondansetron HCl (Zofran) 4 mg IV Q8H PRN PRN Reason: Nausea And Vomiting Last Admin: 09/04/17 06:28 Dose: 4 mg Pneumococcal Polyvalent Vaccine (Pneumovax 23) 0.5 ml IM .ONCE ONE Stop: 09/04/17 12:01 Sodium Chloride (Sodium Chloride Flush Syringe 10 Ml) 10 ml IV BID [facility] Last Admin: 09/03/17 21:08 Dose: 10 ml Sodium Chloride (Sodium Chloride Flush Syringe 10 Ml) 10 ml IV PRN PRN PRN Reason: LINE FLUSH Trazodone HCl (Desyrel) 200 mg PO QHS [facility] Last Admin: 09/03/17 21:06 Dose: 200 mg Review of Systems - Review of Systems All systems: negative Gastrointestinal: abdominal pain, nausea, vomiting Exam - Constitutional Vital Signs: Temp Pulse Resp BP Pulse Ox 98.7 F 115 H 24 157/110 91 09/04/17 08:29 09/04/17 08:29 09/04/17 08:29 09/04/17 08:29 09/04/17 08:29 General appearance: no acute distress, obese (morbidly) - EENT Eyes: PERRL, EOM intact - Respiratory Respiratory: bilateral: CTA - Cardiovascular Rhythm: other (tachycardia) Heart Sounds: Present: S1 & S2 - Gastrointestinal General gastrointestinal: Present: soft, tender (mild TTP in epigastric area/RUQ /LUQ), non-distended, normal bowel sounds - Neurologic Neurological: alert and oriented x3 - Labs CBC & Chem 7: 09/04/17 06:01 09/04/17 06:01 Lab Results: Laboratory Results - last 24 hr 09/03/17 09/03/17 09/04/17 08:14 17:39 06:01 WBC 13.8 H RBC 5.37 H Hgb 15.3 H Hct 47.3 H MCV 88 MCH 29 MCHC 32 RDW 16.1 H Plt Count 234 Lymph % (Auto) 6.3 L [place] % (Auto) 15.2 H Eos % (Auto) 0.0 Baso % (Auto) 0.2 Lymph # 0.9 L [place] # 2.1 H Eos # 0.0 Baso # 0.0 Seg Neutrophils % 78.3 H Seg Neutrophils # 10.8 H Sodium Potassium Chloride Carbon Dioxide Anion Gap BUN Creatinine Estimated GFR BUN/Creatinine Ratio Glucose Hemoglobin A1c 5.8 Calcium Total Bilirubin 3.00 H Direct Bilirubin 1.8 H Indirect Bilirubin 1.2 AST 228 H ALT 174 H Alkaline Phosphatase 264 H Lactate Dehydrogenase Total Protein 7.7 Albumin 3.3 L Albumin/Globulin Ratio 0.8 Amylase Lipase 09/04/17 09/04/17 09/04/17 06:01 06:01 06:01 WBC RBC Hgb Hct MCV MCH MCHC RDW Plt Count Lymph % (Auto) [place] % (Auto) Eos % (Auto) Baso % (Auto) Lymph # [place] # Eos # Baso # Seg Neutrophils % Seg Neutrophils # Sodium 143 Potassium 3.1 L Chloride 102.9 Carbon Dioxide 28 Anion Gap 15 BUN 16 Creatinine 0.6 L Estimated GFR > 60 BUN/Creatinine Ratio 27 Glucose 135 H Hemoglobin A1c Calcium 8.6 Total Bilirubin 4.90 H 5.00 H Direct Bilirubin 4.2 H Indirect Bilirubin 0.8 AST 132 H ALT 153 H Alkaline Phosphatase 256 H Lactate Dehydrogenase 348 H Total Protein 6.7 Albumin 3.0 L Albumin/Globulin Ratio 0.8 Amylase 574 H Lipase 286 H Assessment and Plan 1.acute pancreatitis -afebrile -WBC-13.8 -T.miguel 5.0, AST 132, ALT 153, alk phos 348 -etiology unclear- possibly due to gallstone -abd U/S-results pending -MRCP ordered but unable to complete due to pt's weight -will discuss with Dr. Martinez and consider ERCP pending U/S results -continue supportive care with IVF, pain control, and repeat labs -further recommendations to follow <KAREN MARTINEZ - Last Filed: 09/04/17 19:00> Medications and Allergies Active Meds: Active Medications Acetaminophen (Tylenol) 650 mg PO Q4H PRN PRN Reason: Pain MILD(1-3)/Fever >100.5/BYNUM Aripiprazole (Abilify) 10 mg PO QAM [facility] Last Admin: 09/04/17 10:16 Dose: 10 mg Famotidine (Pepcid) 20 mg IV BID [facility] Last Admin: 09/04/17 10:15 Dose: 20 mg Heparin Sodium (Porcine) (Heparin) 5,000 unit SUB-Q Q12HR [facility] Last Admin: 09/04/17 10:15 Dose: 5,000 unit Hydromorphone HCl (Dilaudid) 1 mg IV Q3H PRN PRN Reason: Pain , Severe (7-10) Last Admin: 09/04/17 17:12 Dose: 1 mg Levofloxacin/Dextrose (Levaquin 500mg/100ml) 500 mg in 100 mls @ 100 mls/hr IV Q24HR [facility]; Protocol Last Admin: 09/04/17 10:14 Dose: 100 mls/hr Metronidazole (Flagyl 500 Mg/100 Ml) 500 mg in 100 mls @ 100 mls/hr IV Q8HR [facility] Last Admin: 09/04/17 13:39 Dose: 100 mls/hr Sodium Chloride (Nacl 0.9% 1000 Ml) 1,000 mls @ 125 mls/hr IV DIRECT [facility] Morphine Sulfate (Morphine) 2 mg IV Q4H PRN PRN Reason: Pain, Moderate (4-6) Ondansetron HCl (Zofran) 4 mg IV Q8H PRN PRN Reason: Nausea And Vomiting Last Admin: 09/04/17 06:28 Dose: 4 mg Sodium Chloride (Sodium Chloride Flush Syringe 10 Ml) 10 ml IV BID [facility] Last Admin: 09/04/17 13:28 Dose: 10 ml Sodium Chloride (Sodium Chloride Flush Syringe 10 Ml) 10 ml IV PRN PRN PRN Reason: LINE FLUSH Trazodone HCl (Desyrel) 200 mg PO QHS [facility] Last Admin: 09/03/17 21:06 Dose: 200 mg Exam - Constitutional Vital Signs: Temp Pulse Resp BP Pulse Ox 97.4 F L 104 H 22 132/90 90 09/04/17 16:16 09/04/17 16:16 09/04/17 16:16 09/04/17 16:16 09/04/17 16:16 - Labs CBC & Chem 7: 09/04/17 06:01 09/04/17 06:01 Lab Results: Laboratory Results - last 24 hr 09/04/17 09/04/17 09/04/17 06:01 06:01 06:01 WBC 13.8 H RBC 5.37 H Hgb 15.3 H Hct 47.3 H MCV 88 MCH 29 MCHC 32 RDW 16.1 H Plt Count 234 Lymph % (Auto) 6.3 L [place] % (Auto) 15.2 H Eos % (Auto) 0.0 Baso % (Auto) 0.2 Lymph # 0.9 L [place] # 2.1 H Eos # 0.0 Baso # 0.0 Seg Neutrophils % 78.3 H Seg Neutrophils # 10.8 H Sodium 143 Potassium 3.1 L Chloride 102.9 Carbon Dioxide 28 Anion Gap 15 BUN 16 Creatinine 0.6 L Estimated GFR > 60 BUN/Creatinine Ratio 27 Glucose 135 H Calcium 8.6 Total Bilirubin 4.90 H Direct Bilirubin Indirect Bilirubin AST 132 H ALT 153 H Alkaline Phosphatase 256 H Lactate Dehydrogenase 348 H Total Protein 6.7 Albumin 3.0 L Albumin/Globulin Ratio 0.8 Amylase 574 H Lipase 286 H 09/04/17 06:01 WBC RBC Hgb Hct MCV MCH MCHC RDW Plt Count Lymph % (Auto) [place] % (Auto) Eos % (Auto) Baso % (Auto) Lymph # [place] # Eos # Baso # Seg Neutrophils % Seg Neutrophils # Sodium Potassium Chloride Carbon Dioxide Anion Gap BUN Creatinine Estimated GFR BUN/Creatinine Ratio Glucose Calcium Total Bilirubin 5.00 H Direct Bilirubin 4.2 H Indirect Bilirubin 0.8 AST ALT Alkaline Phosphatase Lactate Dehydrogenase Total Protein Albumin Albumin/Globulin Ratio Amylase Lipase Assessment and Plan Pt seen and examined. 52 yo obese BM on Disability due to schizophrenia and depression. He feels better. U/S reviewed, and CBD nondilated. If continues to improve, would proceed with CCX with IOC, and then do post-op ERCP if warranted.
[2017-09-04] MEDS ORDERED: KCL 40 MEQ in NACL 0.9% 500 ML 500 ML IV ONE (10:00)
[2017-09-04] MEDS: LEVAQUIN 500MG/100ML 500 MG/100 ML BAG IV SCH (10:14)
[2017-09-04] MEDS: HEPARIN SUB-Q SCH ×2 (10:15→21:15)
[2017-09-04] MEDS: PEPCID IV SCH ×2 (10:15→21:15)
[2017-09-04] MEDS: ABILIFY PO SCH (10:16)
--- NOTE | 2017-09-04 10:21 | Ultrasound Report ---
Sonogram right upper quadrant: History: Pancreatitis, rule out gallstones. Findings: Echogenic liver probably suggestive of fatty liver. No intrahepatic or extrahepatic duct dilatation. No mass. Common bile diameter 2.7 mm. Gallbladder wall thickness 1.7 mm. Multiple calculi in the gallbladder. No pericholecystic fluid. Right kidney 13.8 x 4.8 x 5.8 cm. Cortical thickness is 1.0 cm. Impression: Multiple calculi in thick wall gallbladder.
--- NOTE | 2017-09-04 11:09 | Consultation ---
History of Present Illness Consult date: 09/04/17 Chief complaint: abd pain, n/v - History of present illness History of present illness: 52 yo M with hx of morbid obesity, schizophrenia, HTN presents to hospital with c/o 2 days of epigastric abdominal pain, crampy, and radiating across the upper abdomen. This started after he ate a ham sandwich. He admits to having 2-3 bouts of nonbloody/nonbilious emesis. He felt hot but no recorded fever. He denies cp, sob, c/d. He had an episode of pain like this in the past related to food. He denies recent travel or change to medications. He denies etoh. Pt lives in a care home. Past History Past Medical History: arthritis, diabetes, hypertension, other (DJD depression, schizophrenia, morbid obesity) Past Surgical History: Other (right knee scope, circumcision) Social history: other (drinks 12pk a month of beer). denies: smoking Medications and Allergies Allergies Allergy/AdvReac Type Severity Reaction Status Date / Time No Known Allergies Allergy Verified 05/26/16 12:55 Home Medications Medication Instructions Recorded Confirmed Last Taken Type ARIPiprazole [Abilify] 10 mg PO QAM 09/03/17 09/03/17 09/03/17 History Meloxicam [Mobic] 15 mg PO DAILY 09/03/17 09/03/17 09/03/17 History traZODone [Desyrel] 200 mg PO QHS 09/03/17 09/03/17 09/02/17 History Active Meds: Active Medications Acetaminophen (Tylenol) 650 mg PO Q4H PRN PRN Reason: Pain MILD(1-3)/Fever >100.5/BYNUM Aripiprazole (Abilify) 10 mg PO QAM [facility] Last Admin: 09/04/17 10:16 Dose: 10 mg Famotidine (Pepcid) 20 mg IV BID [facility] Last Admin: 09/04/17 10:15 Dose: 20 mg Heparin Sodium (Porcine) (Heparin) 5,000 unit SUB-Q Q12HR [facility] Last Admin: 09/04/17 10:15 Dose: 5,000 unit Hydromorphone HCl (Dilaudid) 1 mg IV Q3H PRN PRN Reason: Pain , Severe (7-10) Last Admin: 09/04/17 10:15 Dose: 1 mg Sodium Chloride (Nacl 0.9% 1000 Ml) 1,000 mls @ 200 mls/hr IV DIRECT [facility] Last Admin: 09/04/17 06:28 Dose: 200 mls/hr Potassium Chloride 40 meq/ (Sodium Chloride) 520 mls @ 125 mls/hr IV ONCE ONE Stop: 09/04/17 14:09 Levofloxacin/Dextrose (Levaquin 500mg/100ml) 500 mg in 100 mls @ 100 mls/hr IV Q24HR [facility]; Protocol Last Admin: 09/04/17 10:14 Dose: 100 mls/hr Metronidazole (Flagyl 500 Mg/100 Ml) 500 mg in 100 mls @ 100 mls/hr IV Q8HR [facility] Influenza Virus Vaccine Quadrival (Fluarix Quad [id number](36 Mos+) 0.5 ml IM .ONCE ONE Stop: 09/04/17 12:01 Morphine Sulfate (Morphine) 2 mg IV Q4H PRN PRN Reason: Pain, Moderate (4-6) Ondansetron HCl (Zofran) 4 mg IV Q8H PRN PRN Reason: Nausea And Vomiting Last Admin: 09/04/17 06:28 Dose: 4 mg Pneumococcal Polyvalent Vaccine (Pneumovax 23) 0.5 ml IM .ONCE ONE Stop: 09/04/17 12:01 Sodium Chloride (Sodium Chloride Flush Syringe 10 Ml) 10 ml IV BID [facility] Last Admin: 09/03/17 21:08 Dose: 10 ml Sodium Chloride (Sodium Chloride Flush Syringe 10 Ml) 10 ml IV PRN PRN PRN Reason: LINE FLUSH Trazodone HCl (Desyrel) 200 mg PO QHS [facility] Last Admin: 09/03/17 21:06 Dose: 200 mg Review of Systems All systems: negative (10 point ROS performed and negative except for that listed in HPI) Exam Vital Signs Temp Pulse Resp BP Pulse Ox 97.8 F 100 H 24 208/135 95 09/03/17 07:42 09/03/17 07:42 09/03/17 07:42 09/03/17 07:42 09/03/17 07:42 Narrative exam: Gen: AAOx3. NAD ENT: mild scleral icterus, no conjunctival pallor CV: S1, S2+ Resp: even and unlabored Abd: soft, morbidly obese, mild epigastric and RUQ TTP, no r/r/g Ext: no c/c/e Results - Labs 09/04/17 06:01 09/04/17 06:01 Abnormal lab results 09/03/17 09/04/17 09/04/17 Range/Units 08:14 06:01 06:01 WBC 13.8 H (4.5-11.0) K/mm3 RBC 5.37 H (3.65-5.03) M/mm3 Hgb 15.3 H (11.8-15.2) gm/dl Hct 47.3 H (35.5-45.6) % RDW 16.1 H (13.2-15.2) % Lymph % (Auto) 6.3 L (13.4-35.0) % [place] % (Auto) 15.2 H (0.0-7.3) % Lymph # 0.9 L (1.2-5.4) K/mm3 [place] # 2.1 H (0.0-0.8) K/mm3 Seg Neutrophils % 78.3 H (40.0-70.0) % Seg Neutrophils # 10.8 H (1.8-7.7) K/mm3 Potassium 3.1 L (3.6-5.0) mmol/L Creatinine 0.6 L (0.8-1.5) mg/dL Glucose 135 H (75-100) mg/dL Total Bilirubin 3.00 H 4.90 H (0.1-1.2) mg/dL Direct Bilirubin 1.8 H (0-0.2) mg/dL AST 228 H 132 H (5-40) units/L ALT 174 H 153 H (7-56) units/L Alkaline Phosphatase 264 H 256 H (35-129) units/L Lactate Dehydrogenase (91-180) units/L Albumin 3.3 L 3.0 L (3.9-5) g/dL Amylase (27-131) units/L Lipase (13-60) units/L 09/04/17 09/04/17 Range/Units 06:01 06:01 WBC (4.5-11.0) K/mm3 RBC (3.65-5.03) M/mm3 Hgb (11.8-15.2) gm/dl Hct (35.5-45.6) % RDW (13.2-15.2) % Lymph % (Auto) (13.4-35.0) % [place] % (Auto) (0.0-7.3) % Lymph # (1.2-5.4) K/mm3 [place] # (0.0-0.8) K/mm3 Seg Neutrophils % (40.0-70.0) % Seg Neutrophils # (1.8-7.7) K/mm3 Potassium (3.6-5.0) mmol/L Creatinine (0.8-1.5) mg/dL Glucose (75-100) mg/dL Total Bilirubin 5.00 H (0.1-1.2) mg/dL Direct Bilirubin 4.2 H (0-0.2) mg/dL AST (5-40) units/L ALT (7-56) units/L Alkaline Phosphatase (35-129) units/L Lactate Dehydrogenase 348 H (91-180) units/L Albumin (3.9-5) g/dL Amylase 574 H (27-131) units/L Lipase 286 H (13-60) units/L Diabetes panel 09/03/17 09/03/17 09/04/17 Range/Units 08:14 17:39 06:01 Sodium 143 (137-145) mmol/L Potassium 3.1 L (3.6-5.0) mmol/L Chloride 102.9 (98-107) mmol/L Carbon Dioxide 28 (22-30) mmol/L BUN 16 (9-20) mg/dL Creatinine 0.6 L (0.8-1.5) mg/dL Glucose 135 H (75-100) mg/dL Hemoglobin A1c 5.8 (4-6) % Calcium 8.6 (8.4-10.2) mg/dL AST 228 H 132 H (5-40) units/L ALT 174 H 153 H (7-56) units/L Alkaline Phosphatase 264 H 256 H (35-129) units/L Total Protein 7.7 6.7 (6.3-8.2) g/dL Albumin 3.3 L 3.0 L (3.9-5) g/dL Calcium panel 09/03/17 09/04/17 Range/Units 08:14 06:01 Calcium 8.6 (8.4-10.2) mg/dL Albumin 3.3 L 3.0 L (3.9-5) g/dL Pituitary panel 09/04/17 Range/Units 06:01 Sodium 143 (137-145) mmol/L Potassium 3.1 L (3.6-5.0) mmol/L Chloride 102.9 (98-107) mmol/L Carbon Dioxide 28 (22-30) mmol/L BUN 16 (9-20) mg/dL Creatinine 0.6 L (0.8-1.5) mg/dL Glucose 135 H (75-100) mg/dL Calcium 8.6 (8.4-10.2) mg/dL Adrenal panel 09/03/17 09/04/17 09/04/17 Range/Units 08:14 06:01 06:01 Sodium 143 (137-145) mmol/L Potassium 3.1 L (3.6-5.0) mmol/L Chloride 102.9 (98-107) mmol/L Carbon Dioxide 28 (22-30) mmol/L BUN 16 (9-20) mg/dL Creatinine 0.6 L (0.8-1.5) mg/dL Glucose 135 H (75-100) mg/dL Calcium 8.6 (8.4-10.2) mg/dL Total Bilirubin 3.00 H 4.90 H 5.00 H (0.1-1.2) mg/dL AST 228 H 132 H (5-40) units/L ALT 174 H 153 H (7-56) units/L Alkaline Phosphatase 264 H 256 H (35-129) units/L Total Protein 7.7 6.7 (6.3-8.2) g/dL Albumin 3.3 L 3.0 L (3.9-5) g/dL - Imaging CT scan - abdomen: report reviewed, image reviewed CT scan - pelvis: report reviewed, image reviewed US - abdomen: report reviewed, image reviewed Assessment and Plan 52 yo M with 1. pancreatitis likely secondary to gallstones 2. morbid obesity 3. cholelithiasis 4. hyperbilirubinemia r/o choledocolithiasis Plan: 1. NPO 2. IVF 3. trend amylase, lipase, bilirubin 4. repeat CBC, BMP in am 5. replace lytes as needed 6. GI on board, recommendations noted. May need ERCP if bilirubin does not improve 7. prn pain and nausea control 8. DVT ppx 9. could not have MRCP secondary to weight 10. c/w IV abx 11. will need cholecystectomy this hospitalization, I discussed risks, benefits , and alternatives to surgery with the patient. He understands and wishes to proceed with current plan. Thank you for this consultation, please call with questions or concerns.
[2017-09-04] MEDS ORDERED: Fluarix Quad 2017-2018(36 MOS+ IM ONE (12:00)
[2017-09-04] MEDS ORDERED: PNEUMOVAX 23 IM ONE (12:00)
[2017-09-04] MEDS: SODIUM CHLORIDE FLUSH SYRINGE 10 ML IV SCH ×2 (13:28→21:15)
[2017-09-04] MEDS: FLAGYL 500 MG/100 ML 500 MG/100 ML BAG IV SCH ×2 (13:39→21:15)
[2017-09-04] MEDS: DESYREL PO SCH (21:15)
--- NOTE | 2017-09-04 22:28 | Progress Note ---
Assessment and Plan Assessment and plan: 52 y/o AAM morbidly obese with history of DJD Depression and schizophrenia comes in for severe epigastric pain since last night after eating a Hamburger. Pain is sharp and 10/10.Associated with Nausea.No similar episodes in the past. No sob. No fever or chills. No recent travel.No exacerbating or relieving factors. Patient is a 52 y/o male with PMH of morbid obesity, HTN, DM, arthritis, DJD depression, and schizophrenia who presented to ED with c/o epigastric pain with associated N/V. LFTs and lipase was noted to be elevated on admission. Abd CT showed acute pancreatitis. Abd U/S is pending. This morning pt was sitting on the side of the bed w/o acute distress. He reports epigastric pain is intermittent and radiates to LUQ and RUQ. N/V is now improving. Symptoms exacerbated with PO intake. Denies fever, CP, SOB, jaundice, heartburn, dysphagia, odynophagia, diarrhea, constipation, or signs of bleeding such as hematemesis, melena, or hematochezia. No hx or Fhx of liver disease. Drinks on average a 12pk of beer a month. (1) Acute pancreatitis Probably sec to gall stone Liver enzymes elevated CT Abdomen c/w Pancreatitis unable to obtain MRCP due to weight NPO IV fluids IV Analgesics TPN after 72 hrs if necessary Lipase is 1925- now trending down (2) Gall stone pancreatitis Same as above (3) Transaminitis sec to Gall stone induced Hepatitis GI consult (4) Morbid obesity Counselled FOR 15 MINS (5) Malnutrition Dietary consult (6) Depression Current Visit: Yes Status: Chronic Qualifiers: Depression Type: unspecified Qualified Code(s): F32.9 - Major depressive disorder, single episode, unspecified Plan to address problem: Cont Psych meds (7) Schizophrenia in remission Current Visit: Yes Status: Chronic Plan to address problem: Cont psych meds (8) DVT prophylaxis Current Visit: Yes Status: Acute Plan to address problem: On Heparin Plan discussed with patient in detail History Interval history: Patient seen and examined this am, admitted with abdominal pain, and diagnosed with acute pancreatitis, likely secondary to gallstone disease. Hospitalist Physical - Constitutional Vitals: Temp Pulse Resp BP Pulse Ox 97.4 F L 104 H 22 132/90 90 03/14/18 16:16 03/14/18 16:16 09/04/17 16:16 09/04/17 16:16 09/04/17 16:16 General appearance: Present: no acute distress, well-nourished, obese (morbidly) - EENT Eyes: Present: PERRL, EOM intact ENT: hearing intact - Neck Neck: Present: supple, normal ROM - Respiratory Respiratory effort: normal - Cardiovascular Rhythm: regular Heart Sounds: Present: S1 & S2. Absent: systolic murmur - Extremities Extremities: no ischemia, pulses intact, pulses symmetrical, No edema, normal temperature, normal color, Full ROM Peripheral Pulses: within normal limits - Abdominal General gastrointestinal: soft, tender, normal bowel sounds - Integumentary Integumentary: Present: clear, warm, dry - Psychiatric Psychiatric: appropriate mood/affect - Neurologic Neurologic: CNII-XII intact - Allied Health Allied health notes reviewed: nursing Results - Labs CBC & Chem 7: 09/05/17 06:37 09/05/17 06:37 Labs: Laboratory Last Values WBC 13.8 K/mm3 (4.5-11.0) H 09/04/17 06:01 RBC 5.37 M/mm3 (3.65-5.03) H 09/04/17 06:01 Hgb 15.3 gm/dl (11.8-15.2) H 09/04/17 06:01 Hct 47.3 % (35.5-45.6) H 09/04/17 06:01 MCV 88 fl (84-94) 09/04/17 06:01 MCH 29 pg (28-32) 09/04/17 06:01 MCHC 32 % (32-34) 09/04/17 06:01 RDW 16.1 % (13.2-15.2) H 09/04/17 06:01 Plt Count 234 K/mm3 (140-440) 09/04/17 06:01 Lymph % (Auto) 6.3 % (13.4-35.0) L 09/04/17 06:01 [place] % (Auto) 15.2 % (0.0-7.3) H 09/04/17 06:01 Eos % (Auto) 0.0 % (0.0-4.3) 09/04/17 06:01 Baso % (Auto) 0.2 % (0.0-1.8) 09/04/17 06:01 Lymph # 0.9 K/mm3 (1.2-5.4) L 09/04/17 06:01 [place] # 2.1 K/mm3 (0.0-0.8) H 09/04/17 06:01 Eos # 0.0 K/mm3 (0.0-0.4) 09/04/17 06:01 Baso # 0.0 K/mm3 (0.0-0.1) 09/04/17 06:01 Seg Neutrophils % 78.3 % (40.0-70.0) H 09/04/17 06:01 Seg Neutrophils # 10.8 K/mm3 (1.8-7.7) H 09/04/17 06:01 Sodium 143 mmol/L (137-145) 09/04/17 06:01 Potassium 3.1 mmol/L (3.6-5.0) L 09/04/17 06:01 Chloride 102.9 mmol/L (98-107) 09/04/17 06:01 Carbon Dioxide 28 mmol/L (22-30) 09/04/17 06:01 Anion Gap 15 mmol/L 09/04/17 06:01 BUN 16 mg/dL (9-20) 09/04/17 06:01 Creatinine 0.6 mg/dL (0.8-1.5) L 09/04/17 06:01 Estimated GFR > 60 ml/min 09/04/17 06:01 BUN/Creatinine Ratio 27 % 09/04/17 06:01 Glucose 135 mg/dL (75-100) H 09/04/17 06:01 Hemoglobin A1c 5.8 % (4-6) 09/03/17 17:39 Calcium 8.6 mg/dL (8.4-10.2) 09/04/17 06:01 Total Bilirubin 5.00 mg/dL (0.1-1.2) H 09/04/17 06:01 Direct Bilirubin 4.2 mg/dL (0-0.2) H 09/04/17 06:01 Indirect Bilirubin 0.8 mg/dL 09/04/17 06:01 AST 132 units/L (5-40) H 09/04/17 06:01 ALT 153 units/L (7-56) H 09/04/17 06:01 Alkaline Phosphatase 256 units/L (35-129) H 09/04/17 06:01 Lactate Dehydrogenase 348 units/L (91-180) H 09/04/17 06:01 Troponin T < 0.010 ng/mL (0.00-0.029) 09/03/17 08:14 Total Protein 6.7 g/dL (6.3-8.2) 09/04/17 06:01 Albumin 3.0 g/dL (3.9-5) L 09/04/17 06:01 Albumin/Globulin Ratio 0.8 % 09/04/17 06:01 Amylase 574 units/L (27-131) H 09/04/17 06:01 Lipase 286 units/L (13-60) H 09/04/17 06:01 Urine Color Vanessa (Yellow) 09/03/17 Unknown Urine Turbidity Clear (Clear) 09/03/17 Unknown Urine pH 5.0 (5.0-7.0) 09/03/17 Unknown Ur Specific [place] 1.020 (1.003-1.030) 09/03/17 Unknown Urine Protein 30 mg/dl mg/dL (Negative) 09/03/17 Unknown Urine Glucose (UA) Neg mg/dL (Negative) 09/03/17 Unknown Urine Ketones Neg mg/dL (Negative) 09/03/17 Unknown Urine Blood Sm (Negative) 09/03/17 Unknown Urine Nitrite Neg (Negative) 09/03/17 Unknown Urine Bilirubin Mod (Negative) 09/03/17 Unknown Urine Ictotest Positive (Negative) 09/03/17 Unknown Urine Urobilinogen 4.0 mg/dL (<2.0) 09/03/17 Unknown Ur Leukocyte Esterase Neg (Negative) 09/03/17 Unknown Urine WBC (Auto) 5.0 /HPF (0.0-6.0) 09/03/17 Unknown Urine RBC (Auto) 5.0 /HPF (0.0-6.0) 09/03/17 Unknown U Epithel Cells (Auto) 3.0 /HPF (0-13.0) 09/03/17 Unknown Urine Mucus 3+ /HPF 09/03/17 Unknown - Imaging and Cardiology CT scan - abdomen: image reviewed (acute pancreatitis)
[2017-09-05] MEDS: MORPHINE IV PRN ×3 (03:10→22:30)
[2017-09-05] MEDS: NACL 0.9% 1000 ML 1,000 ML IV SCH ×2 (06:11→15:58)
[2017-09-05] MEDS: FLAGYL 500 MG/100 ML 500 MG/100 ML BAG IV SCH ×3 (06:11→22:30)
[2017-09-05 07:27] LABS: Hematocrit 44.8 % (35.5-45.6); Hemoglobin 14.5 gm/dl (11.8-15.2); Mean Corpuscular HGB Conc 32 % (32-34); Mean Corpuscular Hemoglobin 28 pg (28-32); Mean Corpuscular Volume 88 fl (84-94); Platelet Count 225 K/mm3 (140-440); Red Blood Count 5.11 M/mm3 (3.65-5.03); Red Cell Distribution Width 16.2 % (13.2-15.2)
[2017-09-05 07:36] LABS: INR 1.14 (0.87-1.13)
[2017-09-05 07:42] LABS: Alanine Aminotransferase 118 units/L (7-56); BUN/Creatinine Ratio 30; Blood Urea Nitrogen 18 mg/dL (9-20); Calcium 8.5 mg/dL (8.4-10.2); Hemolysis Index 0; Lipase 97 units/L (13-60)
[2017-09-05 10:12] LABS: Band Neutrophils # (Manual) 0.7 K/mm3; Basophils % (Manual) 0 % (0.0-1.8); Eosinophils % (Manual) 0 % (0.0-4.3); Total Cells Counted 100
[2017-09-05 10:13] LABS: RBC Morphology Normal
--- NOTE | 2017-09-05 10:48 | Gastroenterology Progress Note ---
Addendum entered and electronically signed by JIMMY GRANADOS NP 09/05/17 11: 04: After discussion between Dr. martinez and Dr. Abrams the decision was made to proceed with ERCP today. Will schedule. Keep pt NPO and hold am dose of Heparin. Original Note: Assessment and Plan 1.acute pancreatitis -Temp 99.8 -WBC-23.7-trending up -T.miguel 7.1-trending up -AST, ALT, alk phos, lipase-trending down -etiology- most likely 2/2 gallstones -abd U/S-showed gallstones and wall thickening of gallbladder but no dilation of CBD -MRCP- unable to complete due to pt's weight -surgery following -spoke with Dr. Abrams this am regarding pt's condition- she wants to discuss with Dr Martinez the possibility of an ERCP prior to CCX vs CCX with IOC -further recommendations to follow -continue supportive care Subjective Date of service: 09/05/17 Principal diagnosis: acute pancreatitis Interval history: Patient resting in bed this am w/o acute distress. He denies any N/V but states abd pain has now increased. Objective - Constitutional Vitals: Temp Pulse Resp BP Pulse Ox 99.8 F H 106 H 24 136/78 89 09/05/17 08:03 09/05/17 08:03 09/05/17 08:03 09/05/17 08:03 09/05/17 08:03 General appearance: no acute distress, obese (morbidly) - Respiratory Respiratory: bilateral: CTA - Cardiovascular Rhythm: other (tachycardia) Heart Sounds: Present: S1 & S2 - Gastrointestinal General gastrointestinal: Present: soft, tender (TTP in epigastric area/RUQ/LUQ) , non-distended, normal bowel sounds - Neurologic Neurological: alert and oriented x3 - Labs CBC & Chem 7: 09/05/17 06:37 09/05/17 06:37 Labs: Laboratory Results - last 24 hr 09/05/17 09/05/17 09/05/17 06:37 06:37 06:37 WBC 23.7 H RBC 5.11 H Hgb 14.5 Hct 44.8 MCV 88 MCH 28 MCHC 32 RDW 16.2 H Plt Count 225 Add Manual Diff Complete Total Counted 100 Seg Neuts % (Manual) 84.0 H Band Neutrophils % 3.0 Lymphocytes % (Manual) 5.0 L Reactive Lymphs % (Man) 0 Monocytes % (Manual) 8.0 H Eosinophils % (Manual) 0 Basophils % (Manual) 0 Metamyelocytes % 0 Myelocytes % 0 Promyelocytes % 0 Blast Cells % 0 Nucleated RBC % Not Reportable Seg Neutrophils # Man 19.9 H Band Neutrophils # 0.7 Lymphocytes # (Manual) 1.2 Abs React Lymphs (Man) 0.0 Monocytes # (Manual) 1.9 H Eosinophils # (Manual) 0.0 Basophils # (Manual) 0.0 Metamyelocytes # 0.0 Myelocytes # 0.0 Promyelocytes # 0.0 Blast Cells # 0.0 WBC Morphology Not Reportable Hypersegmented Neuts Not Reportable Hyposegmented Neuts Not Reportable Hypogranular Neuts Not Reportable Smudge Cells Not Reportable Toxic Granulation Not Reportable Toxic Vacuolation Not Reportable Dohle Bodies Not Reportable Pelger-Huet Anomaly Not Reportable Miladis Rods Not Reportable Platelet Estimate Not Reportable Clumped Platelets Not Reportable Plt Clumps, EDTA Not Reportable Large Platelets Not Reportable Giant Platelets Not Reportable Platelet Satelliting Not Reportable Plt Morphology Comment Not Reportable RBC Morphology Normal Dimorphic RBCs Not Reportable Polychromasia Not Reportable Hypochromasia Not Reportable Poikilocytosis Not Reportable Anisocytosis Not Reportable Microcytosis Not Reportable Macrocytosis Not Reportable Spherocytes Not Reportable Pappenheimer Bodies Not Reportable Sickle Cells Not Reportable Target Cells Not Reportable Tear Drop Cells Not Reportable Ovalocytes Not Reportable Helmet Cells Not Reportable Lopez-Sharon Bodies Not Reportable Monitor Rings Not Reportable Cheri Cells Not Reportable Bite Cells Not Reportable Crenated Cell Not Reportable Elliptocytes Not Reportable Acanthocytes (Spur) Not Reportable Rouleaux Not Reportable Hemoglobin C Crystals Not Reportable Schistocytes Not Reportable Malaria parasites Not Reportable Iván Bodies Not Reportable Hem Pathologist Commnt No PT 15.2 H INR 1.14 H Sodium 143 Potassium 3.3 L Chloride 99.8 Carbon Dioxide 26 Anion Gap 21 BUN 18 Creatinine 0.6 L Estimated GFR > 60 BUN/Creatinine Ratio 30 Glucose 97 Calcium 8.5 Total Bilirubin 7.10 H AST 73 H ALT 118 H Alkaline Phosphatase 245 H C-Reactive Protein 20.90 H Total Protein 6.5 Triglycerides 71 Lipase 97 H
[2017-09-05] MEDS ORDERED: KCL 10MEQ/100ML 10 MEQ/100 ML BAG IV SCH (11:00)
--- NOTE | 2017-09-05 11:07 | Progress Note ---
Hospitalist Physical - Constitutional Vitals: Temp Pulse Resp BP Pulse Ox 99.8 F H 106 H 24 136/78 89 09/05/17 08:03 09/05/17 08:03 09/05/17 08:03 09/05/17 08:03 09/05/17 08:03 General appearance: Present: no acute distress, well-nourished, obese (morbidly) Results - Labs CBC & Chem 7: 09/05/17 06:37 09/05/17 06:37 Labs: Laboratory Last Values WBC 23.7 K/mm3 (4.5-11.0) H 09/05/17 06:37 RBC 5.11 M/mm3 (3.65-5.03) H 09/05/17 06:37 Hgb 14.5 gm/dl (11.8-15.2) 09/05/17 06:37 Hct 44.8 % (35.5-45.6) 09/05/17 06:37 MCV 88 fl (84-94) 09/05/17 06:37 MCH 28 pg (28-32) 09/05/17 06:37 MCHC 32 % (32-34) 09/05/17 06:37 RDW 16.2 % (13.2-15.2) H 09/05/17 06:37 Plt Count 225 K/mm3 (140-440) 09/05/17 06:37 Lymph % (Auto) 6.3 % (13.4-35.0) L 09/04/17 06:01 [place] % (Auto) 15.2 % (0.0-7.3) H 09/04/17 06:01 Eos % (Auto) 0.0 % (0.0-4.3) 09/04/17 06:01 Baso % (Auto) 0.2 % (0.0-1.8) 09/04/17 06:01 Lymph # 0.9 K/mm3 (1.2-5.4) L 09/04/17 06:01 [place] # 2.1 K/mm3 (0.0-0.8) H 09/04/17 06:01 Eos # 0.0 K/mm3 (0.0-0.4) 09/04/17 06:01 Baso # 0.0 K/mm3 (0.0-0.1) 09/04/17 06:01 Add Manual Diff Complete 09/05/17 06:37 Total Counted 100 09/05/17 06:37 Seg Neutrophils % 78.3 % (40.0-70.0) H 09/04/17 06:01 Seg Neuts % (Manual) 84.0 % (40.0-70.0) H 09/05/17 06:37 Band Neutrophils % 3.0 % 09/05/17 06:37 Lymphocytes % (Manual) 5.0 % (13.4-35.0) L 09/05/17 06:37 Reactive Lymphs % (Man) 0 % 09/05/17 06:37 Monocytes % (Manual) 8.0 % (0.0-7.3) H 09/05/17 06:37 Eosinophils % (Manual) 0 % (0.0-4.3) 09/05/17 06:37 Basophils % (Manual) 0 % (0.0-1.8) 09/05/17 06:37 Metamyelocytes % 0 % 09/05/17 06:37 Myelocytes % 0 % 09/05/17 06:37 Promyelocytes % 0 % 09/05/17 06:37 Blast Cells % 0 % 09/05/17 06:37 Nucleated RBC % Not Reportable 09/05/17 06:37 Seg Neutrophils # 10.8 K/mm3 (1.8-7.7) H 09/04/17 06:01 Seg Neutrophils # Man 19.9 K/mm3 (1.8-7.7) H 09/05/17 06:37 Band Neutrophils # 0.7 K/mm3 09/05/17 06:37 Lymphocytes # (Manual) 1.2 K/mm3 (1.2-5.4) 09/05/17 06:37 Abs React Lymphs (Man) 0.0 K/mm3 09/05/17 06:37 Monocytes # (Manual) 1.9 K/mm3 (0.0-0.8) H 09/05/17 06:37 Eosinophils # (Manual) 0.0 K/mm3 (0.0-0.4) 09/05/17 06:37 Basophils # (Manual) 0.0 K/mm3 (0.0-0.1) 09/05/17 06:37 Metamyelocytes # 0.0 K/mm3 09/05/17 06:37 Myelocytes # 0.0 K/mm3 09/05/17 06:37 Promyelocytes # 0.0 K/mm3 09/05/17 06:37 Blast Cells # 0.0 K/mm3 09/05/17 06:37 WBC Morphology Not Reportable 09/05/17 06:37 Hypersegmented Neuts Not Reportable 09/05/17 06:37 Hyposegmented Neuts Not Reportable 09/05/17 06:37 Hypogranular Neuts Not Reportable 09/05/17 06:37 Smudge Cells Not Reportable 09/05/17 06:37 Toxic Granulation Not Reportable 09/05/17 06:37 Toxic Vacuolation Not Reportable 09/05/17 06:37 Dohle Bodies Not Reportable 09/05/17 06:37 Pelger-Huet Anomaly Not Reportable 09/05/17 06:37 Miladis Rods Not Reportable 09/05/17 06:37 Platelet Estimate Not Reportable 09/05/17 06:37 Clumped Platelets Not Reportable 09/05/17 06:37 Plt Clumps, EDTA Not Reportable 09/05/17 06:37 Large Platelets Not Reportable 09/05/17 06:37 Giant Platelets Not Reportable 09/05/17 06:37 Platelet Satelliting Not Reportable 09/05/17 06:37 Plt Morphology Comment Not Reportable 09/05/17 06:37 RBC Morphology Normal 09/05/17 06:37 Dimorphic RBCs Not Reportable 09/05/17 06:37 Polychromasia Not Reportable 09/05/17 06:37 Hypochromasia Not Reportable 09/05/17 06:37 Poikilocytosis Not Reportable 09/05/17 06:37 Anisocytosis Not Reportable 09/05/17 06:37 Microcytosis Not Reportable 09/05/17 06:37 Macrocytosis Not Reportable 09/05/17 06:37 Spherocytes Not Reportable 09/05/17 06:37 Pappenheimer Bodies Not Reportable 09/05/17 06:37 Sickle Cells Not Reportable 09/05/17 06:37 Target Cells Not Reportable 09/05/17 06:37 Tear Drop Cells Not Reportable 09/05/17 06:37 Ovalocytes Not Reportable 09/05/17 06:37 Helmet Cells Not Reportable 09/05/17 06:37 Lopez-Prichard Bodies Not Reportable 09/05/17 06:37 [place] Rings Not Reportable 09/05/17 06:37 [place] Cells Not Reportable 09/05/17 06:37 Bite Cells Not Reportable 09/05/17 06:37 Crenated Cell Not Reportable 09/05/17 06:37 Elliptocytes Not Reportable 09/05/17 06:37 Acanthocytes (Spur) Not Reportable 09/05/17 06:37 Rouleaux Not Reportable 09/05/17 06:37 Hemoglobin C Crystals Not Reportable 09/05/17 06:37 Schistocytes Not Reportable 09/05/17 06:37 Malaria parasites Not Reportable 09/05/17 06:37 Iván Bodies Not Reportable 09/05/17 06:37 Hem Pathologist Commnt No 09/05/17 06:37 PT 15.2 Sec. (12.2-14.9) H 09/05/17 06:37 INR 1.14 (0.87-1.13) H 09/05/17 06:37 Sodium 143 mmol/L (137-145) 09/05/17 06:37 Potassium 3.3 mmol/L (3.6-5.0) L 09/05/17 06:37 Chloride 99.8 mmol/L (98-107) 09/05/17 06:37 Carbon Dioxide 26 mmol/L (22-30) 09/05/17 06:37 Anion Gap 21 mmol/L 09/05/17 06:37 BUN 18 mg/dL (9-20) 09/05/17 06:37 Creatinine 0.6 mg/dL (0.8-1.5) L 09/05/17 06:37 Estimated GFR > 60 ml/min 09/05/17 06:37 BUN/Creatinine Ratio 30 % 09/05/17 06:37 Glucose 97 mg/dL (75-100) 09/05/17 06:37 Hemoglobin A1c 5.8 % (4-6) 09/03/17 17:39 Calcium 8.5 mg/dL (8.4-10.2) 09/05/17 06:37 Total Bilirubin 7.10 mg/dL (0.1-1.2) H 09/05/17 06:37 Direct Bilirubin 4.2 mg/dL (0-0.2) H 09/04/17 06:01 Indirect Bilirubin 0.8 mg/dL 09/04/17 06:01 AST 73 units/L (5-40) H 09/05/17 06:37 ALT 118 units/L (7-56) H 09/05/17 06:37 Alkaline Phosphatase 245 units/L (35-129) H 09/05/17 06:37 Lactate Dehydrogenase 348 units/L (91-180) H 09/04/17 06:01 Troponin T < 0.010 ng/mL (0.00-0.029) 09/03/17 08:14 C-Reactive Protein 20.90 mg/dL (0.00-1.30) H 09/05/17 06:37 Total Protein 6.5 g/dL (6.3-8.2) 09/05/17 06:37 Albumin 3.0 g/dL (3.9-5) L 09/04/17 06:01 Albumin/Globulin Ratio 0.8 % 09/04/17 06:01 Triglycerides 71 mg/dL (2-149) 09/05/17 06:37 Amylase 574 units/L (27-131) H 09/04/17 06:01 Lipase 97 units/L (13-60) H 09/05/17 06:37 Urine Color Vanessa (Yellow) 09/03/17 Unknown Urine Turbidity Clear (Clear) 09/03/17 Unknown Urine pH 5.0 (5.0-7.0) 09/03/17 Unknown Ur Specific [place] 1.020 (1.003-1.030) 09/03/17 Unknown Urine Protein 30 mg/dl mg/dL (Negative) 09/03/17 Unknown Urine Glucose (UA) Neg mg/dL (Negative) 09/03/17 Unknown Urine Ketones Neg mg/dL (Negative) 09/03/17 Unknown Urine Blood Sm (Negative) 09/03/17 Unknown Urine Nitrite Neg (Negative) 09/03/17 Unknown Urine Bilirubin Mod (Negative) 09/03/17 Unknown Urine Ictotest Positive (Negative) 09/03/17 Unknown Urine Urobilinogen 4.0 mg/dL (<2.0) 09/03/17 Unknown Ur Leukocyte Esterase Neg (Negative) 09/03/17 Unknown Urine WBC (Auto) 5.0 /HPF (0.0-6.0) 09/03/17 Unknown Urine RBC (Auto) 5.0 /HPF (0.0-6.0) 09/03/17 Unknown U Epithel Cells (Auto) 3.0 /HPF (0-13.0) 09/03/17 Unknown Urine Mucus 3+ /HPF 09/03/17 Unknown
[2017-09-05] MEDS: ABILIFY PO SCH (11:10)
[2017-09-05] MEDS: HEPARIN SUB-Q SCH ×2 (11:10→22:31)
[2017-09-05] MEDS: LEVAQUIN 500MG/100ML 500 MG/100 ML BAG IV SCH (11:11)
[2017-09-05] MEDS: SODIUM CHLORIDE FLUSH SYRINGE 10 ML IV SCH ×2 (11:12→22:29)
[2017-09-05] MEDS: PEPCID IV SCH ×2 (11:12→22:30)
--- NOTE | 2017-09-05 11:14 | Progress Note ---
Assessment and Plan 52 yo M with 1. gallstone pancreatitis 2. elevated bilirubin 3. SIRS ?cholangitis Plan: 1. ERCP today - D/W Dr. Martinez - no choledocolithiasis, s/p sphincterotomy and balloon sweep 2. NPO 3. IVF 4. repeat lipase, CMP, CBC in am 5. OOB/ambulate 6. PRN pain control 7. plan for laparoscopic cholecystectomy in am Subjective Date of service: 09/05/17 Narrative: Pt seen and examined. c/o epigastric abd pain. Asking for liquids to drink. Tm 99.8. No n/v. Objective Vital Signs - 12hr 09/04/17 09/05/17 23:49 08:03 Temperature 98.7 F 99.8 F H Pulse Rate 104 H 106 H Respiratory 18 24 Rate Blood Pressure 118/53 136/78 O2 Sat by Pulse 93 89 Oximetry - General physical appearance Narrative Exam: Gen: AAOx3 NAD ENT; mild scleral icterus CV: S1, S2+ resp: No audible wheezes Abd: soft, ND, +epigastric ttp, no r/r/g Ext: no c/c/e - Labs 09/05/17 06:37 09/05/17 06:37 Diabetes panel 09/05/17 Range/Units 06:37 Sodium 143 (137-145) mmol/L Potassium 3.3 L (3.6-5.0) mmol/L Chloride 99.8 (98-107) mmol/L Carbon Dioxide 26 (22-30) mmol/L BUN 18 (9-20) mg/dL Creatinine 0.6 L (0.8-1.5) mg/dL Glucose 97 (75-100) mg/dL Calcium 8.5 (8.4-10.2) mg/dL AST 73 H (5-40) units/L ALT 118 H (7-56) units/L Alkaline Phosphatase 245 H (35-129) units/L Total Protein 6.5 (6.3-8.2) g/dL Triglycerides 71 (2-149) mg/dL Calcium panel 09/05/17 Range/Units 06:37 Calcium 8.5 (8.4-10.2) mg/dL Pituitary panel 09/05/17 Range/Units 06:37 Sodium 143 (137-145) mmol/L Potassium 3.3 L (3.6-5.0) mmol/L Chloride 99.8 (98-107) mmol/L Carbon Dioxide 26 (22-30) mmol/L BUN 18 (9-20) mg/dL Creatinine 0.6 L (0.8-1.5) mg/dL Glucose 97 (75-100) mg/dL Calcium 8.5 (8.4-10.2) mg/dL Adrenal panel 09/05/17 Range/Units 06:37 Sodium 143 (137-145) mmol/L Potassium 3.3 L (3.6-5.0) mmol/L Chloride 99.8 (98-107) mmol/L Carbon Dioxide 26 (22-30) mmol/L BUN 18 (9-20) mg/dL Creatinine 0.6 L (0.8-1.5) mg/dL Glucose 97 (75-100) mg/dL Calcium 8.5 (8.4-10.2) mg/dL Total Bilirubin 7.10 H (0.1-1.2) mg/dL AST 73 H (5-40) units/L ALT 118 H (7-56) units/L Alkaline Phosphatase 245 H (35-129) units/L Total Protein 6.5 (6.3-8.2) g/dL
[2017-09-05 11:19] LABS: Albumin 2.6 g/dL (3.9-5)
[2017-09-05] MEDS ORDERED: NACL 0.9% IV ONE (12:00)
[2017-09-05] MEDS ORDERED: KCL IV ONE (12:00)
[2017-09-05] MEDS ORDERED: QUELICIN ONE (14:09)
[2017-09-05] MEDS ORDERED: XYLOCAINE MPF 2% ONE (14:09)
[2017-09-05] MEDS ORDERED: DIPRIVAN 10 MG/ML IV ONE ×2 (14:09)
[2017-09-05] MEDS ORDERED: DILAUDID ONE (14:10)
--- NOTE | 2017-09-05 14:54 | Anesthesia Consultation ---
Anesthesia Consult and Med Hx Date of service: 09/05/17 - Airway Anesthetic Teeth Evaluation: Good ROM Head & Neck: Adequate Mental/Hyoid Distance: Adequate Mallampati Class: Class II Intubation Access Assessment: Probably Good - Pulmonary Exam CTA: Yes - Cardiac Exam Cardiac Exam: RRR - Pre-Operative Health Status ASA Pre-Surgery Classification: ASA3 Proposed Anesthetic Plan: General - Pulmonary Hx Asthma: No COPD: No Hx Pneumonia: No - Cardiovascular System Hx Hypertension: No - Central Nervous System Hx Psychiatric Problems: Yes (anchor admits in past) - Endocrine Hx End Stage Renal Disease: No
--- NOTE | 2017-09-05 14:55 | Anesthesia Day of Surgery ---
Anesthesia Day of Surgery - Day of Surgery Patient Examined: Yes Patient H&P Reviewed: Yes Patient is NPO: Yes
[2017-09-05] MEDS ORDERED: ZOFRAN ONE (15:00)
[2017-09-05] MEDS ORDERED: ROBINUL ONE (15:00)
[2017-09-05] MEDS ORDERED: NACL 0.9% 100 ML ONE (15:18)
--- NOTE | 2017-09-05 16:11 | Post Operative Note ---
Pre-op diagnosis: Abnormal LFTs, gallstone pancreatitis Post-op diagnosis: other (Dilated CBD, no visualization of cystic duct. No stones noted.) Findings: 1. Normal papilla 2. Normal PD 3. CBD dilated to 14 mm. Sphincterotomy done, and duct swept, no filling defects noted. 4. Cystic duct not visualized. Procedure: ERCP with sphincterotomy and balloon sweep Anesthesia: GETA, MAC Surgeon: KAREN SOW Estimated blood loss: none Pathology: none Condition: stable Disposition: floor (Okay for cholecystectomy)
--- NOTE | 2017-09-05 18:45 | Operative Report ---
PROCEDURE: ERCP with sphincterotomy and balloon sweep. PREOPERATIVE DIAGNOSIS: Abnormal liver enzymes and gallstone pancreatitis. POSTOPERATIVE DIAGNOSIS: Dilated common bile duct and nonvisualization of the cystic duct. SEDATION: General anesthesia with intubation -- endotracheal. HISTORY: The patient is a 52-year-old man with a gallstone pancreatitis. He has elevated liver enzymes and his white count is rising. He has a nondilated duct on ultrasound, but does have gallstones. He is morbidly obese with a weight of 409 pounds and is not a candidate for MRI. Because of this, preop ERCP is requested given the increasing WBC and total bilirubin as well as increased pain. DESCRIPTION OF PROCEDURE: Indications, risks, and benefits were explained and consent was obtained from the patient. The patient was placed on abdomen on fluoroscopy table after intubation and general anesthesia. [email or web address] video duodenoscope was passed through the mouth and oropharynx into the descending duodenum. Scope was then gradually withdrawn with close inspection of mucosa until the major papilla was visualized. Selective cannulation of the pancreatic duct and then of the common bile duct was readily achieved using the fusion sphincterotome and guidewire. FINDINGS: 1. Bulging major papilla, but with normal overlying mucosa. 2. Pancreatic duct is normal in course and caliber in the head and the first portion of the body. 3. Common bile duct is dilated to 14 mm. After initial sphincterotomy from pancreatic duct, biliary sphincterotomy was completed to a total of approximately 1 cm. Then, a 12 mm balloon was inserted into the bifurcation, inflated and the duct was swept without return of any stone or debris. Cholangiogram showed no evidence of filling defects. Of note, cystic duct did not visualize. The patient tolerated the procedure well without immediate complications. IMPRESSION: 1. Dilated common bile duct with nonvisualization of the cystic duct. Sphincterotomy done and common bile duct swept. 2. Normal pancreatic duct in the half of the duct that was visualized. PLAN: 1. Monitor for complications. 2. Proceed with cholecystectomy as per Surgery. JOB# [id number] HRC/NTS
[2017-09-05] MEDS: DESYREL PO SCH (22:32)
[2017-09-05] MEDS: D5W/0.45% NACL/KCL 20 MEQ 20 MEQ/1,000 ML BAG IV SCH (22:39)
--- NOTE | 2017-09-05 23:21 | Progress Note ---
Assessment and Plan Assessment and plan: 52 y/o AAM morbidly obese with history of DJD Depression and schizophrenia comes in for severe epigastric pain since last night after eating a Hamburger. Pain is sharp and 10/10.Associated with Nausea.No similar episodes in the past. No sob. No fever or chills. No recent travel.No exacerbating or relieving factors. Patient is a 52 y/o male with PMH of morbid obesity, HTN, DM, arthritis, DJD depression, and schizophrenia who presented to ED with c/o epigastric pain with associated N/V. LFTs and lipase was noted to be elevated on admission. Abd CT showed acute pancreatitis. Abd U/S is pending. This morning pt was sitting on the side of the bed w/o acute distress. He reports epigastric pain is intermittent and radiates to LUQ and RUQ. N/V is now improving. Symptoms exacerbated with PO intake. Denies fever, CP, SOB, jaundice, heartburn, dysphagia, odynophagia, diarrhea, constipation, or signs of bleeding such as hematemesis, melena, or hematochezia. No hx or Fhx of liver disease. Drinks on average a 12pk of beer a month. (1) Acute pancreatitis Probably sec to gall stone Liver enzymes elevated CT Abdomen c/w Pancreatitis unable to obtain MRCP due to weight NPO IV fluids IV Analgesics TPN after 72 hrs if necessary Lipase is 1925- now trending down (2) Gall stone pancreatitis Same as above (3) Transaminitis sec to Gall stone induced Hepatitis GI consult (4) Morbid obesity Counselled FOR 15 MINS (5) Malnutrition Dietary consult (6) Depression Current Visit: Yes Status: Chronic Qualifiers: Depression Type: unspecified Qualified Code(s): F32.9 - Major depressive disorder, single episode, unspecified Plan to address problem: Cont Psych meds (7) Schizophrenia in remission Current Visit: Yes Status: Chronic Plan to address problem: Cont psych meds (8) DVT prophylaxis Current Visit: Yes Status: Acute Plan to address problem: On Heparin Plan discussed with patient in detail History Interval history: Patient seen and examined this am, admitted with abdominal pain, and diagnosed with acute pancreatitis, likely secondary to gallstone disease. Hospitalist Physical - Physical exam Narrative exam: General appearance: no acute distress, obese (morbidly) - Respiratory Respiratory: bilateral: CTA - Cardiovascular Rhythm: other (tachycardia) Heart Sounds: Present: S1 & S2 - Gastrointestinal General gastrointestinal: Present: soft, tender (TTP in epigastric area/RUQ/LUQ) , non-distended, normal bowel sounds - Neurologic Neurological: alert and oriented x3 - Labs CBC & Chem 7: 09/05/17 06:37 - Constitutional Vitals: Temp Pulse Resp BP Pulse Ox 98.9 F 109 H 20 140/82 90 09/05/17 17:14 09/05/17 17:14 09/05/17 17:14 09/05/17 17:14 09/05/17 17:14 General appearance: Present: no acute distress, well-nourished, obese (morbidly) - Abdominal General gastrointestinal: deferred, non-tender, non-distended - Integumentary Integumentary: Present: clear, warm, dry - Psychiatric Psychiatric: appropriate mood/affect - Neurologic Neurologic: CNII-XII intact - Allied Health Allied health notes reviewed: nursing Results - Labs CBC & Chem 7: 09/05/17 06:37 09/05/17 06:37 Labs: Laboratory Last Values WBC 23.7 K/mm3 (4.5-11.0) H 09/05/17 06:37 RBC 5.11 M/mm3 (3.65-5.03) H 09/05/17 06:37 Hgb 14.5 gm/dl (11.8-15.2) 09/05/17 06:37 Hct 44.8 % (35.5-45.6) 09/05/17 06:37 MCV 88 fl (84-94) 09/05/17 06:37 MCH 28 pg (28-32) 09/05/17 06:37 MCHC 32 % (32-34) 09/05/17 06:37 RDW 16.2 % (13.2-15.2) H 09/05/17 06:37 Plt Count 225 K/mm3 (140-440) 09/05/17 06:37 Lymph % (Auto) 6.3 % (13.4-35.0) L 09/04/17 06:01 [place] % (Auto) 15.2 % (0.0-7.3) H 09/04/17 06:01 Eos % (Auto) 0.0 % (0.0-4.3) 09/04/17 06:01 Baso % (Auto) 0.2 % (0.0-1.8) 09/04/17 06:01 Lymph # 0.9 K/mm3 (1.2-5.4) L 09/04/17 06:01 [place] # 2.1 K/mm3 (0.0-0.8) H 09/04/17 06:01 Eos # 0.0 K/mm3 (0.0-0.4) 09/04/17 06:01 Baso # 0.0 K/mm3 (0.0-0.1) 09/04/17 06:01 Add Manual Diff Complete 09/05/17 06:37 Total Counted 100 09/05/17 06:37 Seg Neutrophils % 78.3 % (40.0-70.0) H 09/04/17 06:01 Seg Neuts % (Manual) 84.0 % (40.0-70.0) H 09/05/17 06:37 Band Neutrophils % 3.0 % 09/05/17 06:37 Lymphocytes % (Manual) 5.0 % (13.4-35.0) L 09/05/17 06:37 Reactive Lymphs % (Man) 0 % 09/05/17 06:37 Monocytes % (Manual) 8.0 % (0.0-7.3) H 09/05/17 06:37 Eosinophils % (Manual) 0 % (0.0-4.3) 09/05/17 06:37 Basophils % (Manual) 0 % (0.0-1.8) 09/05/17 06:37 Metamyelocytes % 0 % 09/05/17 06:37 Myelocytes % 0 % 09/05/17 06:37 Promyelocytes % 0 % 09/05/17 06:37 Blast Cells % 0 % 09/05/17 06:37 Nucleated RBC % Not Reportable 09/05/17 06:37 Seg Neutrophils # 10.8 K/mm3 (1.8-7.7) H 09/04/17 06:01 Seg Neutrophils # Man 19.9 K/mm3 (1.8-7.7) H 09/05/17 06:37 Band Neutrophils # 0.7 K/mm3 09/05/17 06:37 Lymphocytes # (Manual) 1.2 K/mm3 (1.2-5.4) 09/05/17 06:37 Abs React Lymphs (Man) 0.0 K/mm3 09/05/17 06:37 Monocytes # (Manual) 1.9 K/mm3 (0.0-0.8) H 09/05/17 06:37 Eosinophils # (Manual) 0.0 K/mm3 (0.0-0.4) 09/05/17 06:37 Basophils # (Manual) 0.0 K/mm3 (0.0-0.1) 09/05/17 06:37 Metamyelocytes # 0.0 K/mm3 09/05/17 06:37 Myelocytes # 0.0 K/mm3 09/05/17 06:37 Promyelocytes # 0.0 K/mm3 09/05/17 06:37 Blast Cells # 0.0 K/mm3 09/05/17 06:37 WBC Morphology Not Reportable 09/05/17 06:37 Hypersegmented Neuts Not Reportable 09/05/17 06:37 Hyposegmented Neuts Not Reportable 09/05/17 06:37 Hypogranular Neuts Not Reportable 09/05/17 06:37 Smudge Cells Not Reportable 09/05/17 06:37 Toxic Granulation Not Reportable 09/05/17 06:37 Toxic Vacuolation Not Reportable 09/05/17 06:37 Dohle Bodies Not Reportable 09/05/17 06:37 Pelger-Huet Anomaly Not Reportable 09/05/17 06:37 Miladis Rods Not Reportable 09/05/17 06:37 Platelet Estimate Not Reportable 09/05/17 06:37 Clumped Platelets Not Reportable 09/05/17 06:37 Plt Clumps, EDTA Not Reportable 09/05/17 06:37 Large Platelets Not Reportable 09/05/17 06:37 Giant Platelets Not Reportable 09/05/17 06:37 Platelet Satelliting Not Reportable 09/05/17 06:37 Plt Morphology Comment Not Reportable 09/05/17 06:37 RBC Morphology Normal 09/05/17 06:37 Dimorphic RBCs Not Reportable 09/05/17 06:37 Polychromasia Not Reportable 09/05/17 06:37 Hypochromasia Not Reportable 09/05/17 06:37 Poikilocytosis Not Reportable 09/05/17 06:37 Anisocytosis Not Reportable 09/05/17 06:37 Microcytosis Not Reportable 09/05/17 06:37 Macrocytosis Not Reportable 09/05/17 06:37 Spherocytes Not Reportable 09/05/17 06:37 Pappenheimer Bodies Not Reportable 09/05/17 06:37 Sickle Cells Not Reportable 09/05/17 06:37 Target Cells Not Reportable 09/05/17 06:37 Tear Drop Cells Not Reportable 09/05/17 06:37 Ovalocytes Not Reportable 09/05/17 06:37 Helmet Cells Not Reportable 09/05/17 06:37 Lopez-Souris Bodies Not Reportable 09/05/17 06:37 [place] Rings Not Reportable 09/05/17 06:37 Cheri Cells Not Reportable 09/05/17 06:37 Bite Cells Not Reportable 09/05/17 06:37 Crenated Cell Not Reportable 09/05/17 06:37 Elliptocytes Not Reportable 09/05/17 06:37 Acanthocytes (Spur) Not Reportable 09/05/17 06:37 Rouleaux Not Reportable 09/05/17 06:37 Hemoglobin C Crystals Not Reportable 09/05/17 06:37 Schistocytes Not Reportable 09/05/17 06:37 Malaria parasites Not Reportable 09/05/17 06:37 Iván Bodies Not Reportable 09/05/17 06:37 Hem Pathologist Commnt No 09/05/17 06:37 PT 15.2 Sec. (12.2-14.9) H 09/05/17 06:37 INR 1.14 (0.87-1.13) H 09/05/17 06:37 Sodium 143 mmol/L (137-145) 09/05/17 06:37 Potassium 3.3 mmol/L (3.6-5.0) L 09/05/17 06:37 Chloride 99.8 mmol/L (98-107) 09/05/17 06:37 Carbon Dioxide 26 mmol/L (22-30) 09/05/17 06:37 Anion Gap 21 mmol/L 09/05/17 06:37 BUN 18 mg/dL (9-20) 09/05/17 06:37 Creatinine 0.6 mg/dL (0.8-1.5) L 09/05/17 06:37 Estimated GFR > 60 ml/min 09/05/17 06:37 BUN/Creatinine Ratio 30 % 09/05/17 06:37 Glucose 97 mg/dL (75-100) 09/05/17 06:37 Hemoglobin A1c 5.8 % (4-6) 09/03/17 17:39 Calcium 8.5 mg/dL (8.4-10.2) 09/05/17 06:37 Total Bilirubin 7.10 mg/dL (0.1-1.2) H 09/05/17 06:37 Direct Bilirubin 4.2 mg/dL (0-0.2) H 09/04/17 06:01 Indirect Bilirubin 0.8 mg/dL 09/04/17 06:01 AST 73 units/L (5-40) H 09/05/17 06:37 ALT 118 units/L (7-56) H 09/05/17 06:37 Alkaline Phosphatase 245 units/L (35-129) H 09/05/17 06:37 Lactate Dehydrogenase 348 units/L (91-180) H 09/04/17 06:01 Troponin T < 0.010 ng/mL (0.00-0.029) 09/03/17 08:14 C-Reactive Protein 20.90 mg/dL (0.00-1.30) H 09/05/17 06:37 Total Protein 6.5 g/dL (6.3-8.2) 09/05/17 06:37 Albumin 2.6 g/dL (3.9-5) L 09/05/17 06:37 Albumin/Globulin Ratio 0.7 % 09/05/17 06:37 Triglycerides 71 mg/dL (2-149) 09/05/17 06:37 Amylase 574 units/L (27-131) H 09/04/17 06:01 Lipase 97 units/L (13-60) H 09/05/17 06:37 Urine Color Vanessa (Yellow) 09/03/17 Unknown Urine Turbidity Clear (Clear) 09/03/17 Unknown Urine pH 5.0 (5.0-7.0) 09/03/17 Unknown Ur Specific [place] 1.020 (1.003-1.030) 09/03/17 Unknown Urine Protein 30 mg/dl mg/dL (Negative) 09/03/17 Unknown Urine Glucose (UA) Neg mg/dL (Negative) 09/03/17 Unknown Urine Ketones Neg mg/dL (Negative) 09/03/17 Unknown Urine Blood Sm (Negative) 09/03/17 Unknown Urine Nitrite Neg (Negative) 09/03/17 Unknown Urine Bilirubin Mod (Negative) 09/03/17 Unknown Urine Ictotest Positive (Negative) 09/03/17 Unknown Urine Urobilinogen 4.0 mg/dL (<2.0) 09/03/17 Unknown Ur Leukocyte Esterase Neg (Negative) 09/03/17 Unknown Urine WBC (Auto) 5.0 /HPF (0.0-6.0) 09/03/17 Unknown Urine RBC (Auto) 5.0 /HPF (0.0-6.0) 09/03/17 Unknown U Epithel Cells (Auto) 3.0 /HPF (0-13.0) 09/03/17 Unknown Urine Mucus 3+ /HPF 09/03/17 Unknown
[2017-09-06] MEDS: DILAUDID IV PRN ×3 (00:45→10:11)
[2017-09-06] MEDS: FLAGYL 500 MG/100 ML 500 MG/100 ML BAG IV SCH ×3 (05:08→22:02)
[2017-09-06 05:49] LABS: Basophils % (Auto) 0.2 % (0.0-1.8); Eosinophils # (Auto) 0.1 K/mm3 (0.0-0.4); Eosinophils % (Auto) 0.3 % (0.0-4.3); Hematocrit 39.8 % (35.5-45.6); Hemoglobin 13.3 gm/dl (11.8-15.2); Lymphocytes # (Auto) 1.6 K/mm3 (1.2-5.4); Lymphocytes % (Auto) 8.4 % (13.4-35.0); Mean Corpuscular HGB Conc 34 % (32-34); Mean Corpuscular Hemoglobin 29 pg (28-32); Mean Corpuscular Volume 87 fl (84-94); Monocytes # (Auto) 2.5 K/mm3 (0.0-0.8); Monocytes % (Auto) 12.8 % (0.0-7.3); Platelet Count 173 K/mm3 (140-440); Red Blood Count 4.57 M/mm3 (3.65-5.03); Red Cell Distribution Width 16.2 % (13.2-15.2)
[2017-09-06 06:26] LABS: Alanine Aminotransferase 74 units/L (7-56); Albumin 2.2 g/dL (3.9-5); BUN/Creatinine Ratio 24; Blood Urea Nitrogen 17 mg/dL (9-20); Hemolysis Index 4; Lipase 12 units/L (13-60)
--- NOTE | 2017-09-06 07:47 | Fluoroscopy Report ---
FLUOROSCOPY ERCP BILIARY AND PANCREATIC DUCTS HISTORY: Elevated liver function tests, pancreatitis, cholelithiasis. FINDINGS: Fluoroscopy was provided by radiology during ERCP by the sap gatherer. 5 fluoroscopic images were captured during the procedure. The images demonstrate an endoscope cannulating the common bile duct which is dilated up to 14 mm. No convincing choledocholithiasis was noted. Balloon sweep of the common bile duct was performed. Papillotomy was performed. The pancreatic duct was injected per the operative note but only the proximal pancreatic duct is visualized on the given images. No obvious abnormality. Please correlate with the operative notes. IMPRESSION: No choledocholithiasis was demonstrated.
--- NOTE | 2017-09-06 08:30 | Progress Note ---
Assessment and Plan Assessment and plan: 52 y/o AAM morbidly obese with history of DJD Depression and hypertension, diabetes mellitus, arthritis, schizophrenia comes in for severe epigastric pain since last night after eating a Hamburger. Pain is sharp and 10/ 10.Associated with Nausea.No similar episodes in the past. No sob. No fever or chills. No recent travel.No exacerbating or relieving factors. Drinks on average a 12pk of beer a month. (1) Acute pancreatitis Probably sec to gall stone CT Abdomen c/w Pancreatitis unable to obtain MRCP due to weight patient proceeded to have an ERCP with sphincterectomy. Noted remarkable improvement in LFTs. (2) Gall stone pancreatitis Same as above Patient for today laparoscopic cholecystectomy by surgery today (3) Transaminitis sec to Gall stone induced Hepatitis GI consult input noted (4) Morbid obesity Counselled FOR 15 MINS (5) Malnutrition Dietary consult (6) Depression Cont Psych meds (7) Schizophrenia in remission Cont psych meds (8) alcohol use disorder [place] protocol. Extensive counseling provided to the patient 15 minutes about alcohol abuse. Patient verbalized understanding (9) DVT prophylaxis Current Visit: Yes Status: Acute Plan to address problem: On Heparin Plan discussed with patient in detail History Interval history: Patient seen and examined this am, admitted with abdominal pain, and diagnosed with acute pancreatitis, likely secondary to gallstone disease. Hospitalist Physical - Physical exam Narrative exam: General appearance: no acute distress, obese (morbidly) - Respiratory Respiratory: bilateral: CTA - Cardiovascular Rhythm: other (tachycardia) Heart Sounds: Present: S1 & S2 - Gastrointestinal General gastrointestinal: Present: soft, tender (TTP in epigastric area/RUQ/LUQ) , non-distended, normal bowel sounds - Neurologic Neurological: alert and oriented x3 - Labs CBC & Chem 7: 09/05/17 06:37 - Constitutional Vitals: Temp Pulse Resp BP Pulse Ox 99.5 F 101 H 20 133/78 89 09/05/17 23:55 09/05/17 23:55 09/05/17 23:55 09/05/17 23:55 09/05/17 23:55 General appearance: Present: no acute distress, well-nourished, obese (morbidly) Results - Labs CBC & Chem 7: 09/06/17 05:01 09/06/17 05:01 Labs: Laboratory Last Values WBC 19.2 K/mm3 (4.5-11.0) H 09/06/17 05:01 RBC 4.57 M/mm3 (3.65-5.03) 09/06/17 05:01 Hgb 13.3 gm/dl (11.8-15.2) 09/06/17 05:01 Hct 39.8 % (35.5-45.6) 09/06/17 05:01 MCV 87 fl (84-94) 09/06/17 05:01 MCH 29 pg (28-32) 09/06/17 05:01 MCHC 34 % (32-34) 09/06/17 05:01 RDW 16.2 % (13.2-15.2) H 09/06/17 05:01 Plt Count 173 K/mm3 (140-440) 09/06/17 05:01 Lymph % (Auto) 8.4 % (13.4-35.0) L 09/06/17 05:01 [place] % (Auto) 12.8 % (0.0-7.3) H 09/06/17 05:01 Eos % (Auto) 0.3 % (0.0-4.3) 09/06/17 05:01 Baso % (Auto) 0.2 % (0.0-1.8) 09/06/17 05:01 Lymph # 1.6 K/mm3 (1.2-5.4) 09/06/17 05:01 [place] # 2.5 K/mm3 (0.0-0.8) H 09/06/17 05:01 Eos # 0.1 K/mm3 (0.0-0.4) 09/06/17 05:01 Baso # 0.0 K/mm3 (0.0-0.1) 09/06/17 05:01 Add Manual Diff Complete 09/05/17 06:37 Total Counted 100 09/05/17 06:37 Seg Neutrophils % 78.3 % (40.0-70.0) H 09/06/17 05:01 Seg Neuts % (Manual) 84.0 % (40.0-70.0) H 09/05/17 06:37 Band Neutrophils % 3.0 % 09/05/17 06:37 Lymphocytes % (Manual) 5.0 % (13.4-35.0) L 09/05/17 06:37 Reactive Lymphs % (Man) 0 % 09/05/17 06:37 Monocytes % (Manual) 8.0 % (0.0-7.3) H 09/05/17 06:37 Eosinophils % (Manual) 0 % (0.0-4.3) 09/05/17 06:37 Basophils % (Manual) 0 % (0.0-1.8) 09/05/17 06:37 Metamyelocytes % 0 % 09/05/17 06:37 Myelocytes % 0 % 09/05/17 06:37 Promyelocytes % 0 % 09/05/17 06:37 Blast Cells % 0 % 09/05/17 06:37 Nucleated RBC % Not Reportable 09/05/17 06:37 Seg Neutrophils # 15.0 K/mm3 (1.8-7.7) H 09/06/17 05:01 Seg Neutrophils # Man 19.9 K/mm3 (1.8-7.7) H 09/05/17 06:37 Band Neutrophils # 0.7 K/mm3 09/05/17 06:37 Lymphocytes # (Manual) 1.2 K/mm3 (1.2-5.4) 09/05/17 06:37 Abs React Lymphs (Man) 0.0 K/mm3 09/05/17 06:37 Monocytes # (Manual) 1.9 K/mm3 (0.0-0.8) H 09/05/17 06:37 Eosinophils # (Manual) 0.0 K/mm3 (0.0-0.4) 09/05/17 06:37 Basophils # (Manual) 0.0 K/mm3 (0.0-0.1) 09/05/17 06:37 Metamyelocytes # 0.0 K/mm3 09/05/17 06:37 Myelocytes # 0.0 K/mm3 09/05/17 06:37 Promyelocytes # 0.0 K/mm3 09/05/17 06:37 Blast Cells # 0.0 K/mm3 09/05/17 06:37 WBC Morphology Not Reportable 09/05/17 06:37 Hypersegmented Neuts Not Reportable 09/05/17 06:37 Hyposegmented Neuts Not Reportable 09/05/17 06:37 Hypogranular Neuts Not Reportable 09/05/17 06:37 Smudge Cells Not Reportable 09/05/17 06:37 Toxic Granulation Not Reportable 09/05/17 06:37 Toxic Vacuolation Not Reportable 09/05/17 06:37 Dohle Bodies Not Reportable 09/05/17 06:37 Pelger-Huet Anomaly Not Reportable 09/05/17 06:37 Miladis Rods Not Reportable 09/05/17 06:37 Platelet Estimate Not Reportable 09/05/17 06:37 Clumped Platelets Not Reportable 09/05/17 06:37 Plt Clumps, EDTA Not Reportable 09/05/17 06:37 Large Platelets Not Reportable 09/05/17 06:37 Giant Platelets Not Reportable 09/05/17 06:37 Platelet Satelliting Not Reportable 09/05/17 06:37 Plt Morphology Comment Not Reportable 09/05/17 06:37 RBC Morphology Normal 09/05/17 06:37 Dimorphic RBCs Not Reportable 09/05/17 06:37 Polychromasia Not Reportable 09/05/17 06:37 Hypochromasia Not Reportable 09/05/17 06:37 Poikilocytosis Not Reportable 09/05/17 06:37 Anisocytosis Not Reportable 09/05/17 06:37 Microcytosis Not Reportable 09/05/17 06:37 Macrocytosis Not Reportable 09/05/17 06:37 Spherocytes Not Reportable 09/05/17 06:37 Pappenheimer Bodies Not Reportable 09/05/17 06:37 Sickle Cells Not Reportable 09/05/17 06:37 Target Cells Not Reportable 09/05/17 06:37 Tear Drop Cells Not Reportable 09/05/17 06:37 Ovalocytes Not Reportable 09/05/17 06:37 Helmet Cells Not Reportable 09/05/17 06:37 [place] Bodies Not Reportable 09/05/17 06:37 [place] Rings Not Reportable 09/05/17 06:37 [place] Cells Not Reportable 09/05/17 06:37 Bite Cells Not Reportable 09/05/17 06:37 Crenated Cell Not Reportable 09/05/17 06:37 Elliptocytes Not Reportable 09/05/17 06:37 Acanthocytes (Spur) Not Reportable 09/05/17 06:37 Rouleaux Not Reportable 09/05/17 06:37 Hemoglobin C Crystals Not Reportable 09/05/17 06:37 Schistocytes Not Reportable 09/05/17 06:37 Malaria parasites Not Reportable 09/05/17 06:37 Iván Bodies Not Reportable 09/05/17 06:37 Hem Pathologist Commnt No 09/05/17 06:37 PT 15.2 Sec. (12.2-14.9) H 09/05/17 06:37 INR 1.14 (0.87-1.13) H 09/05/17 06:37 Sodium 143 mmol/L (137-145) 09/06/17 05:01 Potassium 3.6 mmol/L (3.6-5.0) 09/06/17 05:01 Chloride 105.3 mmol/L (98-107) 09/06/17 05:01 Carbon Dioxide 25 mmol/L (22-30) 09/06/17 05:01 Anion Gap 16 mmol/L 09/06/17 05:01 BUN 17 mg/dL (9-20) 09/06/17 05:01 Creatinine 0.7 mg/dL (0.8-1.5) L 09/06/17 05:01 Estimated GFR > 60 ml/min 09/06/17 05:01 BUN/Creatinine Ratio 24 % 09/06/17 05:01 Glucose 114 mg/dL (75-100) H 09/06/17 05:01 Hemoglobin A1c 5.8 % (4-6) 09/03/17 17:39 Calcium 8.0 mg/dL (8.4-10.2) L 09/06/17 05:01 Total Bilirubin 2.10 mg/dL (0.1-1.2) H 09/06/17 05:01 Direct Bilirubin 4.2 mg/dL (0-0.2) H 09/04/17 06:01 Indirect Bilirubin 0.8 mg/dL 09/04/17 06:01 AST 32 units/L (5-40) 09/06/17 05:01 ALT 74 units/L (7-56) H 09/06/17 05:01 Alkaline Phosphatase 201 units/L (35-129) H 09/06/17 05:01 Lactate Dehydrogenase 348 units/L (91-180) H 09/04/17 06:01 Troponin T < 0.010 ng/mL (0.00-0.029) 09/03/17 08:14 C-Reactive Protein 20.90 mg/dL (0.00-1.30) H 09/05/17 06:37 Total Protein 6.2 g/dL (6.3-8.2) L 09/06/17 05:01 Albumin 2.2 g/dL (3.9-5) L 09/06/17 05:01 Albumin/Globulin Ratio 0.6 % 09/06/17 05:01 Triglycerides 71 mg/dL (2-149) 09/05/17 06:37 Amylase 574 units/L (27-131) H 09/04/17 06:01 Lipase 12 units/L (13-60) L 09/06/17 05:01 Urine Color Vanessa (Yellow) 09/03/17 Unknown Urine Turbidity Clear (Clear) 09/03/17 Unknown Urine pH 5.0 (5.0-7.0) 09/03/17 Unknown Ur Specific [place] 1.020 (1.003-1.030) 09/03/17 Unknown Urine Protein 30 mg/dl mg/dL (Negative) 09/03/17 Unknown Urine Glucose (UA) Neg mg/dL (Negative) 09/03/17 Unknown Urine Ketones Neg mg/dL (Negative) 09/03/17 Unknown Urine Blood Sm (Negative) 09/03/17 Unknown Urine Nitrite Neg (Negative) 09/03/17 Unknown Urine Bilirubin Mod (Negative) 09/03/17 Unknown Urine Ictotest Positive (Negative) 09/03/17 Unknown Urine Urobilinogen 4.0 mg/dL (<2.0) 09/03/17 Unknown Ur Leukocyte Esterase Neg (Negative) 09/03/17 Unknown Urine WBC (Auto) 5.0 /HPF (0.0-6.0) 09/03/17 Unknown Urine RBC (Auto) 5.0 /HPF (0.0-6.0) 09/03/17 Unknown U Epithel Cells (Auto) 3.0 /HPF (0-13.0) 09/03/17 Unknown Urine Mucus 3+ /HPF 09/03/17 Unknown
[2017-09-06] MEDS: D5W/0.45% NACL/KCL 20 MEQ 20 MEQ/1,000 ML BAG IV SCH (08:57)
--- NOTE | 2017-09-06 09:47 | Gastroenterology Progress Note ---
<JIMMY GRANADOS - Last Filed: 09/06/17 09:48> Assessment and Plan 1.acute pancreatitis -afebrile -WBC-19.2-trending down -LFTs trending down -Lipase-WNL -etiology- most likely 2/2 gallstones -abd U/S-showed gallstones and wall thickening of gallbladder but no dilation of CBD -MRCP- unable to complete due to pt's weight -s/p ERCP with sphincterotomy yesterday that showed dilated CBD but no stones -cholecystectomy pending for today -continue supportive care -will defer to surgery for further management -will sign off, please call if needed Subjective Date of service: 09/06/17 Principal diagnosis: acute pancreatitis Interval history: Patient resting in bed w/o acute distress. Reports mild epigastric pain but states pain is improved from yesterday. No N/V. Objective - Constitutional Vitals: Temp Pulse Resp BP Pulse Ox 98.8 F 89 18 120/71 92 09/06/17 07:55 09/06/17 07:55 09/06/17 07:55 09/06/17 07:55 09/06/17 07:55 General appearance: no acute distress, obese (morbidly) - Respiratory Respiratory: bilateral: CTA - Cardiovascular Rhythm: regular Heart Sounds: Present: S1 & S2 - Gastrointestinal General gastrointestinal: Present: soft, tender (mild TTP in epigastric area/RUQ ), non-distended, normal bowel sounds - Integumentary Integumentary: Present: warm, dry - Neurologic Neurological: alert and oriented x3 - Labs CBC & Chem 7: 09/06/17 05:01 09/06/17 05:01 Labs: Laboratory Results - last 24 hr 09/05/17 09/05/17 09/06/17 06:37 06:37 05:01 WBC 19.2 H RBC 4.57 Hgb 13.3 Hct 39.8 MCV 87 MCH 29 MCHC 34 RDW 16.2 H Plt Count 173 Lymph % (Auto) 8.4 L [place] % (Auto) 12.8 H Eos % (Auto) 0.3 Baso % (Auto) 0.2 Lymph # 1.6 [place] # 2.5 H Eos # 0.1 Baso # 0.0 Add Manual Diff Complete Total Counted 100 Seg Neutrophils % 78.3 H Seg Neuts % (Manual) 84.0 H Band Neutrophils % 3.0 Lymphocytes % (Manual) 5.0 L Reactive Lymphs % (Man) 0 Monocytes % (Manual) 8.0 H Eosinophils % (Manual) 0 Basophils % (Manual) 0 Metamyelocytes % 0 Myelocytes % 0 Promyelocytes % 0 Blast Cells % 0 Nucleated RBC % Not Reportable Seg Neutrophils # 15.0 H Seg Neutrophils # Man 19.9 H Band Neutrophils # 0.7 Lymphocytes # (Manual) 1.2 Abs React Lymphs (Man) 0.0 Monocytes # (Manual) 1.9 H Eosinophils # (Manual) 0.0 Basophils # (Manual) 0.0 Metamyelocytes # 0.0 Myelocytes # 0.0 Promyelocytes # 0.0 Blast Cells # 0.0 WBC Morphology Not Reportable Hypersegmented Neuts Not Reportable Hyposegmented Neuts Not Reportable Hypogranular Neuts Not Reportable Smudge Cells Not Reportable Toxic Granulation Not Reportable Toxic Vacuolation Not Reportable Dohle Bodies Not Reportable Pelger-Huet Anomaly Not Reportable Miladis Rods Not Reportable Platelet Estimate Not Reportable Clumped Platelets Not Reportable Plt Clumps, EDTA Not Reportable Large Platelets Not Reportable Giant Platelets Not Reportable Platelet Satelliting Not Reportable Plt Morphology Comment Not Reportable RBC Morphology Normal Dimorphic RBCs Not Reportable Polychromasia Not Reportable Hypochromasia Not Reportable Poikilocytosis Not Reportable Anisocytosis Not Reportable Microcytosis Not Reportable Macrocytosis Not Reportable Spherocytes Not Reportable Pappenheimer Bodies Not Reportable Sickle Cells Not Reportable Target Cells Not Reportable Tear Drop Cells Not Reportable Ovalocytes Not Reportable Helmet Cells Not Reportable [place] Bodies Not Reportable [place] Rings Not Reportable [place]ri Cells Not Reportable Bite Cells Not Reportable Crenated Cell Not Reportable Elliptocytes Not Reportable Acanthocytes (Spur) Not Reportable Rouleaux Not Reportable Hemoglobin C Crystals Not Reportable Schistocytes Not Reportable Malaria parasites Not Reportable Iván Bodies Not Reportable Hem Pathologist Commnt No Sodium Potassium Chloride Carbon Dioxide Anion Gap BUN Creatinine Estimated GFR BUN/Creatinine Ratio Glucose Calcium Total Bilirubin AST ALT Alkaline Phosphatase Total Protein Albumin 2.6 L Albumin/Globulin Ratio 0.7 Lipase 09/06/17 05:01 WBC RBC Hgb Hct MCV MCH MCHC RDW Plt Count Lymph % (Auto) [place] % (Auto) Eos % (Auto) Baso % (Auto) Lymph # [place] # Eos # Baso # Add Manual Diff Total Counted Seg Neutrophils % Seg Neuts % (Manual) Band Neutrophils % Lymphocytes % (Manual) Reactive Lymphs % (Man) Monocytes % (Manual) Eosinophils % (Manual) Basophils % (Manual) Metamyelocytes % Myelocytes % Promyelocytes % Blast Cells % Nucleated RBC % Seg Neutrophils # Seg Neutrophils # Man Band Neutrophils # Lymphocytes # (Manual) Abs React Lymphs (Man) Monocytes # (Manual) Eosinophils # (Manual) Basophils # (Manual) Metamyelocytes # Myelocytes # Promyelocytes # Blast Cells # WBC Morphology Hypersegmented Neuts Hyposegmented Neuts Hypogranular Neuts Smudge Cells Toxic Granulation Toxic Vacuolation Dohle Bodies Pelger-Huet Anomaly Miladis Rods Platelet Estimate Clumped Platelets Plt Clumps, EDTA Large Platelets Giant Platelets Platelet Satelliting Plt Morphology Comment RBC Morphology Dimorphic RBCs Polychromasia Hypochromasia Poikilocytosis Anisocytosis Microcytosis Macrocytosis Spherocytes Pappenheimer Bodies Sickle Cells Target Cells Tear Drop Cells Ovalocytes Helmet Cells [place] Bodies [place] Rings [place] Cells Bite Cells Crenated Cell Elliptocytes Acanthocytes (Spur) Rouleaux Hemoglobin C Crystals Schistocytes Malaria parasites Iván Bodies Hem Pathologist Commnt Sodium 143 Potassium 3.6 Chloride 105.3 Carbon Dioxide 25 Anion Gap 16 BUN 17 Creatinine 0.7 L Estimated GFR > 60 BUN/Creatinine Ratio 24 Glucose 114 H Calcium 8.0 L Total Bilirubin 2.10 H AST 32 ALT 74 H Alkaline Phosphatase 201 H Total Protein 6.2 L Albumin 2.2 L Albumin/Globulin Ratio 0.6 Lipase 12 L <KAREN SOW R - Last Filed: 09/06/17 12:37> Assessment and Plan Doing better. Pt likely had papillary stenosis. Objective - Constitutional Vitals: Temp Pulse Resp BP Pulse Ox 99.2 F 95 H 22 153/102 97 09/06/17 12:23 09/06/17 12:23 09/06/17 12:23 09/06/17 12:23 09/06/17 12:23 - Labs CBC & Chem 7: 09/06/17 05:01 09/06/17 05:01 Labs: Laboratory Results - last 24 hr 09/06/17 09/06/17 05:01 05:01 WBC 19.2 H RBC 4.57 Hgb 13.3 Hct 39.8 MCV 87 MCH 29 MCHC 34 RDW 16.2 H Plt Count 173 Lymph % (Auto) 8.4 L [place] % (Auto) 12.8 H Eos % (Auto) 0.3 Baso % (Auto) 0.2 Lymph # 1.6 [place] # 2.5 H Eos # 0.1 Baso # 0.0 Seg Neutrophils % 78.3 H Seg Neutrophils # 15.0 H Sodium 143 Potassium 3.6 Chloride 105.3 Carbon Dioxide 25 Anion Gap 16 BUN 17 Creatinine 0.7 L Estimated GFR > 60 BUN/Creatinine Ratio 24 Glucose 114 H Calcium 8.0 L Total Bilirubin 2.10 H AST 32 ALT 74 H Alkaline Phosphatase 201 H Total Protein 6.2 L Albumin 2.2 L Albumin/Globulin Ratio 0.6 Lipase 12 L
[2017-09-06] MEDS: LEVAQUIN 500MG/100ML 500 MG/100 ML BAG IV SCH (10:15)
[2017-09-06] MEDS: PEPCID IV SCH ×2 (10:16→22:04)
[2017-09-06] MEDS: HEPARIN SUB-Q SCH ×2 (10:33→22:04)
--- NOTE | 2017-09-06 12:35 | Post Anesthesia Evaluation ---
- Post Anesthesia Evaluation Patient Participated: Yes Airway Patent: Yes Stable Respiratory Function: Yes Nausea/Vomiting: No Temp > 96.8F: Yes Pain Manageable: Yes Adequeate Hydration: Yes Anesthesia Complications: No Block Receding Appropriately: Not Applicable
--- NOTE | 2017-09-06 12:35 | Anesthesia Consultation ---
Anesthesia Consult and Med Hx - Airway Anesthetic Teeth Evaluation: Good ROM Head & Neck: Adequate Mental/Hyoid Distance: Adequate Mallampati Class: Class III Intubation Access Assessment: Good - Pulmonary Exam CTA: Yes - Cardiac Exam Cardiac Exam: RRR - Pre-Operative Health Status ASA Pre-Surgery Classification: ASA3 Proposed Anesthetic Plan: General - Pulmonary Hx Asthma: No COPD: No Hx Pneumonia: No - Cardiovascular System Hx Hypertension: No - Central Nervous System Hx Psychiatric Problems: Yes (anchor admits in past) - Endocrine Hx End Stage Renal Disease: No
[2017-09-06] MEDS ORDERED: DILAUDID IV PRN (12:36)
[2017-09-06] MEDS ORDERED: ZOFRAN IV PRN (12:36)
--- NOTE | 2017-09-06 12:36 | Anesthesia Day of Surgery ---
Anesthesia Day of Surgery - Day of Surgery Patient Examined: Yes Patient H&P Reviewed: Yes Patient is NPO: Yes
[2017-09-06] MEDS ORDERED: NACL 0.9% 1000 ML 1,000 ML IV SCH (13:00)
[2017-09-06] MEDS ORDERED: DILAUDID ONE (13:10)
[2017-09-06] MEDS ORDERED: QUELICIN ONE (13:10)
[2017-09-06] MEDS ORDERED: ZEMURON IV ONE (13:10)
[2017-09-06] MEDS ORDERED: XYLOCAINE MPF 2% ONE (13:10)
[2017-09-06] MEDS ORDERED: DIPRIVAN 10 MG/ML IV ONE (13:10)
[2017-09-06] MEDS ORDERED: MARCAINE 0.5% 30 ML INFILTRATI ONE (13:34)
[2017-09-06] MEDS ORDERED: XYLOCAINE 1% 20 mL ONE ×2 (13:34→13:45)
[2017-09-06] MEDS ORDERED: NEOSTIGMINE ONE (14:38)
[2017-09-06] MEDS ORDERED: ZOFRAN ONE (14:38)
[2017-09-06] MEDS ORDERED: ROBINUL ONE (14:38)
[2017-09-06] MEDS ORDERED: NACL 0.9% IR ONE (14:55)
[2017-09-06] MEDS ORDERED: MARCAINE 0.5% INFILTRATI ONE (14:55)
[2017-09-06] MEDS ORDERED: XYLOCAINE 1% 20 mL INFILTRATI ONE (14:55)
[2017-09-06] MEDS ORDERED: NEO SYNEPHRINE/NS Syringe(OR USE) IV ONE (15:16)
[2017-09-06] MEDS ORDERED: NACL 0.9% 1000 ML 1,000 ML ONE (15:47)
[2017-09-06] MEDS ORDERED: ULTRAM PO PRN (16:24)
--- NOTE | 2017-09-06 16:56 | Operative Report ---
Operative Report Operative Report: Date of operation: 09/06/17 Preoperative diagnosis:Gallstone pancreatitis postOperative diagnoses: same Procedure performed: Laparoscopic cholecystectomy Surgeon: Kaity Abrams DO Scroll [place]ar Operator: Gabriel Gibson MD Anesthesia: Gen. endotracheal anesthesia Findings: contracted gallbladder with dense adhesions to omentum, partially intrahepatic, very short cystic duct Specimen: Gallbladder Estimated blood loss: 50cc Complications: None Disposition: Stable to PACU HPI an indication: 52 year old morbidly obese male who presented to the hospital with complaints of epigastric abdominal pain. He was found to have a elevated lipase, transaminitis, elevated bilirubins. CT scan showed pancreatitis. Right upper quadrant ultrasound showed gallstones. Patient underwent a ERCP for bilirubin which is trending upwards. Underwent a sphincterotomy with sweeping of the duct which did not yield choledocholithiasis. His lipase continues to trend downwards and really Lam' s as well. He was therefore consented for laparoscopic cholecystectomy, possible open. All risks, benefits, alternatives of surgery were discussed with the patient he agreed to proceed. All questions answered. Procedure in detail: The patient was identified in the preoperative area and taken back to the operating room, placed on the operating room table in supine position. After anesthesia was induced, the abdomen was prepped and draped in usual sterile fashion and timeout was performed. Local anesthetic was infiltrated into all of the skin incision sites. A small dionisio was made in the skin in the left upper quadrant approximately 2 fingerbreadths below the costal margin. Through this a Veress needle was inserted and position confirmed using saline drop test. The abdomen was insufflated however the pressures were slightly elevated. We therefore made a incision in the right upper quadrant through which a 5 mm Optiview trocar was placed under direct visualization. The abdomen was insufflated through this trocar. The abdomen was then inspected and there was no underlying injury to any of the intra-abdominal contents. The veress needle was seen and withdrawn. An additional 12 mm midline abdominal port fpc between the xiphoid and umbilicus, and another 5mm RUQ port were then placed under direct visualization. The patient was then placed into reverse Trendelberg and tilted to the left. The gallbladder was obscured by dense omental adhesions. These were taken down using the Harmonic scalpel. The gallbladder was then visualized and was contracted and partially intrahepatic. The neck of the gallbladder was covered by dense, scarred peritoneum which was carefully taken down bluntly. The gallbladder was grasped and lifted cephalad. The gallbladder was removed from the liver bed in a dome down fashion using the harmonic scalpel. Once the neck of the gallbladder was encountered, the cystic artery was dissected. The critical view was obtained, and there were no other tubular structure seen. The cystic artery was transected using the Harmonic Scalpel. The neck of the gallbladder was transected using a testbirdselon flex 45 mm blue load stapler. The gallbladder was placed into a Endo Catch bag and removed from the abdomen via the 12mm port. The gallbladder fossa was then inspected and there was no identifiable bleeding or bile leakage. Hemostasis was ensured. The patient was then placed into neutral position and Morison's pouch was irrigated and the irrigant returned clear. The 12 mm port fascia was closed with 2, interrupted 0 Vicryl sutures using the Givens device. The remaining ports were removed under direct visualization. Skin incisions were closed with 4-0 Monocryl subcuticular stitches and skin glue. All skin incisions were once again infiltrated with local anesthetic. At the end case all sponge, instrument, sharp counts were correct 2. The patient was awoken from anesthesia, extubated, taken to PACU in stable condition.
[2017-09-06] MEDS: ABILIFY PO SCH (18:15)
[2017-09-06] MEDS: SODIUM CHLORIDE FLUSH SYRINGE 10 ML IV SCH ×2 (18:16→22:03)
[2017-09-06] MEDS: DESYREL PO SCH (22:04)
[2017-09-06] MEDS: MORPHINE IV PRN (22:09)
[2017-09-07] MEDS: MORPHINE IV PRN ×3 (01:49→14:47)
[2017-09-07] MEDS: D5W/0.45% NACL/KCL 20 MEQ 20 MEQ/1,000 ML BAG IV SCH (05:01)
[2017-09-07] MEDS: FLAGYL 500 MG/100 ML 500 MG/100 ML BAG IV SCH (05:02)
[2017-09-07 07:01] LABS: Hematocrit 38.9 % (35.5-45.6); Hemoglobin 12.9 gm/dl (11.8-15.2); Mean Corpuscular HGB Conc 33 % (32-34); Mean Corpuscular Hemoglobin 29 pg (28-32); Mean Corpuscular Volume 88 fl (84-94); Platelet Count 196 K/mm3 (140-440)
[2017-09-07 07:31] LABS: Alanine Aminotransferase 65 units/L (7-56); Albumin 2.3 g/dL (3.9-5); BUN/Creatinine Ratio 14; Blood Urea Nitrogen 10 mg/dL (9-20); Calcium 7.7 mg/dL (8.4-10.2); Hemolysis Index 1
[2017-09-07] MEDS: LEVAQUIN 500MG/100ML 500 MG/100 ML BAG IV SCH (09:00)
[2017-09-07] MEDS: HEPARIN SUB-Q SCH ×2 (09:00→21:15)
[2017-09-07] MEDS: ABILIFY PO SCH (09:00)
[2017-09-07] MEDS: SODIUM CHLORIDE FLUSH SYRINGE 10 ML IV SCH ×2 (09:01→21:15)
[2017-09-07] MEDS: PEPCID IV SCH (09:01)
--- NOTE | 2017-09-07 10:44 | Progress Note ---
Assessment and Plan Assessment and plan: Acute gallstone pancreatitis CT Abdomen c/w Pancreatitis unable to obtain MRCP due to weight patient proceeded to have an ERCP with sphincterectomy. Noted remarkable improvement in LFTs. Patient s/p laparoscopic cholecystectomy per surgery. Transaminitis sec to Gall stone induced Hepatitis GI consult input noted Sepsis. Etiology secondary to cholecystitis. Present on admission. Morbid obesity Counselled FOR 15 MINS--per Dr. Bean Protein calorie Malnutrition Dietary consulted Depression Cont Psych meds Schizophrenia in remission Cont psych meds alcohol use disorder Ci[place] protocol. Extensive counseling provided to the patient 15 minutes about alcohol abuse. Patient verbalized understanding Hypokalemia Replete potassium DVT prophylaxis On Heparin History Interval history: No new issues overnight. Hospitalist Physical - Constitutional Vitals: Temp Pulse Resp BP Pulse Ox 98.5 F 92 H 18 136/86 94 09/07/17 07:54 09/07/17 07:54 09/07/17 07:54 09/07/17 07:54 09/07/17 07:54 General appearance: Present: no acute distress, well-nourished, obese (morbidly) - EENT Eyes: Present: PERRL, EOM intact ENT: hearing intact, clear oral mucosa, dentition normal - Neck Neck: Present: supple, normal ROM - Respiratory Respiratory effort: normal Respiratory: bilateral: CTA - Cardiovascular Rhythm: regular Heart Sounds: Present: S1 & S2. Absent: gallop, rub - Extremities Extremities: no ischemia, No edema, Full ROM - Abdominal General gastrointestinal: soft, non-tender, non-distended, normal bowel sounds - Integumentary Integumentary: Present: clear, warm, dry - Neurologic Neurologic: CNII-XII intact, moves all extremities Results - Labs CBC & Chem 7: 09/07/17 06:32 09/07/17 06:32 Labs: Laboratory Last Values WBC 16.4 K/mm3 (4.5-11.0) H 09/07/17 06:32 RBC 4.40 M/mm3 (3.65-5.03) 09/07/17 06:32 Hgb 12.9 gm/dl (11.8-15.2) 09/07/17 06:32 Hct 38.9 % (35.5-45.6) 09/07/17 06:32 MCV 88 fl (84-94) 09/07/17 06:32 MCH 29 pg (28-32) 09/07/17 06:32 MCHC 33 % (32-34) 09/07/17 06:32 RDW 16.0 % (13.2-15.2) H 09/07/17 06:32 Plt Count 196 K/mm3 (140-440) 09/07/17 06:32 Lymph % (Auto) 8.4 % (13.4-35.0) L 09/06/17 05:01 Cameron % (Auto) 12.8 % (0.0-7.3) H 09/06/17 05:01 Eos % (Auto) 0.3 % (0.0-4.3) 09/06/17 05:01 Baso % (Auto) 0.2 % (0.0-1.8) 09/06/17 05:01 Lymph # 1.6 K/mm3 (1.2-5.4) 09/06/17 05:01 Cameron # 2.5 K/mm3 (0.0-0.8) H 09/06/17 05:01 Eos # 0.1 K/mm3 (0.0-0.4) 09/06/17 05:01 Baso # 0.0 K/mm3 (0.0-0.1) 09/06/17 05:01 Add Manual Diff Complete 09/05/17 06:37 Total Counted 100 09/05/17 06:37 Seg Neutrophils % 78.3 % (40.0-70.0) H 09/06/17 05:01 Seg Neuts % (Manual) 84.0 % (40.0-70.0) H 09/05/17 06:37 Band Neutrophils % 3.0 % 09/05/17 06:37 Lymphocytes % (Manual) 5.0 % (13.4-35.0) L 09/05/17 06:37 Reactive Lymphs % (Man) 0 % 09/05/17 06:37 Monocytes % (Manual) 8.0 % (0.0-7.3) H 09/05/17 06:37 Eosinophils % (Manual) 0 % (0.0-4.3) 09/05/17 06:37 Basophils % (Manual) 0 % (0.0-1.8) 09/05/17 06:37 Metamyelocytes % 0 % 09/05/17 06:37 Myelocytes % 0 % 09/05/17 06:37 Promyelocytes % 0 % 09/05/17 06:37 Blast Cells % 0 % 09/05/17 06:37 Nucleated RBC % Not Reportable 09/05/17 06:37 Seg Neutrophils # 15.0 K/mm3 (1.8-7.7) H 09/06/17 05:01 Seg Neutrophils # Man 19.9 K/mm3 (1.8-7.7) H 09/05/17 06:37 Band Neutrophils # 0.7 K/mm3 09/05/17 06:37 Lymphocytes # (Manual) 1.2 K/mm3 (1.2-5.4) 09/05/17 06:37 Abs React Lymphs (Man) 0.0 K/mm3 09/05/17 06:37 Monocytes # (Manual) 1.9 K/mm3 (0.0-0.8) H 09/05/17 06:37 Eosinophils # (Manual) 0.0 K/mm3 (0.0-0.4) 09/05/17 06:37 Basophils # (Manual) 0.0 K/mm3 (0.0-0.1) 09/05/17 06:37 Metamyelocytes # 0.0 K/mm3 09/05/17 06:37 Myelocytes # 0.0 K/mm3 09/05/17 06:37 Promyelocytes # 0.0 K/mm3 09/05/17 06:37 Blast Cells # 0.0 K/mm3 09/05/17 06:37 WBC Morphology Not Reportable 09/05/17 06:37 Hypersegmented Neuts Not Reportable 09/05/17 06:37 Hyposegmented Neuts Not Reportable 09/05/17 06:37 Hypogranular Neuts Not Reportable 09/05/17 06:37 Smudge Cells Not Reportable 09/05/17 06:37 Toxic Granulation Not Reportable 09/05/17 06:37 Toxic Vacuolation Not Reportable 09/05/17 06:37 Dohle Bodies Not Reportable 09/05/17 06:37 Pelger-Huet Anomaly Not Reportable 09/05/17 06:37 Miladis Rods Not Reportable 09/05/17 06:37 Platelet Estimate Not Reportable 09/05/17 06:37 Clumped Platelets Not Reportable 09/05/17 06:37 Plt Clumps, EDTA Not Reportable 09/05/17 06:37 Large Platelets Not Reportable 09/05/17 06:37 Giant Platelets Not Reportable 09/05/17 06:37 Platelet Satelliting Not Reportable 09/05/17 06:37 Plt Morphology Comment Not Reportable 09/05/17 06:37 RBC Morphology Normal 09/05/17 06:37 Dimorphic RBCs Not Reportable 09/05/17 06:37 Polychromasia Not Reportable 09/05/17 06:37 Hypochromasia Not Reportable 09/05/17 06:37 Poikilocytosis Not Reportable 09/05/17 06:37 Anisocytosis Not Reportable 09/05/17 06:37 Microcytosis Not Reportable 09/05/17 06:37 Macrocytosis Not Reportable 09/05/17 06:37 Spherocytes Not Reportable 09/05/17 06:37 Pappenheimer Bodies Not Reportable 09/05/17 06:37 Sickle Cells Not Reportable 09/05/17 06:37 Target Cells Not Reportable 09/05/17 06:37 Tear Drop Cells Not Reportable 09/05/17 06:37 Ovalocytes Not Reportable 09/05/17 06:37 Helmet Cells Not Reportable 09/05/17 06:37 Lopez-Goldfield Bodies Not Reportable 09/05/17 06:37 [place] Rings Not Reportable 09/05/17 06:37 [place] Cells Not Reportable 09/05/17 06:37 Bite Cells Not Reportable 09/05/17 06:37 Crenated Cell Not Reportable 09/05/17 06:37 Elliptocytes Not Reportable 09/05/17 06:37 Acanthocytes (Spur) Not Reportable 09/05/17 06:37 Rouleaux Not Reportable 09/05/17 06:37 Hemoglobin C Crystals Not Reportable 09/05/17 06:37 Schistocytes Not Reportable 09/05/17 06:37 Malaria parasites Not Reportable 09/05/17 06:37 Iván Bodies Not Reportable 09/05/17 06:37 Hem Pathologist Commnt No 09/05/17 06:37 PT 15.2 Sec. (12.2-14.9) H 09/05/17 06:37 INR 1.14 (0.87-1.13) H 09/05/17 06:37 Sodium 141 mmol/L (137-145) 09/07/17 06:32 Potassium 3.2 mmol/L (3.6-5.0) L 09/07/17 06:32 Chloride 102.4 mmol/L (98-107) 09/07/17 06:32 Carbon Dioxide 27 mmol/L (22-30) 09/07/17 06:32 Anion Gap 15 mmol/L 09/07/17 06:32 BUN 10 mg/dL (9-20) 09/07/17 06:32 Creatinine 0.7 mg/dL (0.8-1.5) L 09/07/17 06:32 Estimated GFR > 60 ml/min 09/07/17 06:32 BUN/Creatinine Ratio 14 % 09/07/17 06:32 Glucose 125 mg/dL (75-100) H 09/07/17 06:32 POC Glucose 95 (70-105) 09/06/17 12:50 Hemoglobin A1c 5.8 % (4-6) 09/03/17 17:39 Calcium 7.7 mg/dL (8.4-10.2) L 09/07/17 06:32 Total Bilirubin 1.30 mg/dL (0.1-1.2) H 09/07/17 06:32 Direct Bilirubin 4.2 mg/dL (0-0.2) H 09/04/17 06:01 Indirect Bilirubin 0.8 mg/dL 09/04/17 06:01 AST 48 units/L (5-40) H 09/07/17 06:32 ALT 65 units/L (7-56) H 09/07/17 06:32 Alkaline Phosphatase 164 units/L (35-129) H 09/07/17 06:32 Lactate Dehydrogenase 348 units/L (91-180) H 09/04/17 06:01 Troponin T < 0.010 ng/mL (0.00-0.029) 09/03/17 08:14 C-Reactive Protein 20.90 mg/dL (0.00-1.30) H 09/05/17 06:37 Total Protein 6.1 g/dL (6.3-8.2) L 09/07/17 06:32 Albumin 2.3 g/dL (3.9-5) L 09/07/17 06:32 Albumin/Globulin Ratio 0.6 % 09/07/17 06:32 Triglycerides 71 mg/dL (2-149) 09/05/17 06:37 Amylase 574 units/L (27-131) H 09/04/17 06:01 Lipase 12 units/L (13-60) L 09/06/17 05:01 Urine Color Vanessa (Yellow) 09/03/17 Unknown Urine Turbidity Clear (Clear) 09/03/17 Unknown Urine pH 5.0 (5.0-7.0) 09/03/17 Unknown Ur Specific [place] 1.020 (1.003-1.030) 09/03/17 Unknown Urine Protein 30 mg/dl mg/dL (Negative) 09/03/17 Unknown Urine Glucose (UA) Neg mg/dL (Negative) 09/03/17 Unknown Urine Ketones Neg mg/dL (Negative) 09/03/17 Unknown Urine Blood Sm (Negative) 09/03/17 Unknown Urine Nitrite Neg (Negative) 09/03/17 Unknown Urine Bilirubin Mod (Negative) 09/03/17 Unknown Urine Ictotest Positive (Negative) 09/03/17 Unknown Urine Urobilinogen 4.0 mg/dL (<2.0) 09/03/17 Unknown Ur Leukocyte Esterase Neg (Negative) 09/03/17 Unknown Urine WBC (Auto) 5.0 /HPF (0.0-6.0) 09/03/17 Unknown Urine RBC (Auto) 5.0 /HPF (0.0-6.0) 09/03/17 Unknown U Epithel Cells (Auto) 3.0 /HPF (0-13.0) 09/03/17 Unknown Urine Mucus 3+ /HPF 09/03/17 Unknown
[2017-09-07] MEDS ORDERED: K-DUR PO ONE (10:46)
--- NOTE | 2017-09-07 15:43 | Progress Note ---
Assessment and Plan 52 yo M s/p laparoscopic cholecystectomy POD 1 1. gallstone pancreatitis 2. morbid obesity Plan: 1. continue reg diet 2. OOB/ambulate 3. encourage IS/pulm toilet 4. DVT ppx 5. dc IVF 6. ok to dc from surgery standpoint. Will need 2 week follow up in surgery office for post op visit. Thank you. D/W Dr. Palacios. Subjective Date of service: 09/07/17 Narrative: Pt seen and examined. c/o soreness near incisions. He has tolerated a regular diet without n/v. Pain is controlled with meds. No f/c Objective Vital Signs - 12hr 09/07/17 09/07/17 04:32 07:54 Temperature 98.4 F 98.5 F Pulse Rate 89 92 H Respiratory 22 18 Rate Blood Pressure 146/85 136/86 O2 Sat by Pulse 91 94 Oximetry - General physical appearance Narrative Exam: Gen: AAOx3. NAD CV: S1, S2+ Resp: even and unlabored Abd: soft, NT, ND. incisions c/d/i Ext: no c/c/e - Labs 09/07/17 06:32 09/07/17 06:32 Diabetes panel 09/07/17 Range/Units 06:32 Sodium 141 (137-145) mmol/L Potassium 3.2 L (3.6-5.0) mmol/L Chloride 102.4 (98-107) mmol/L Carbon Dioxide 27 (22-30) mmol/L BUN 10 (9-20) mg/dL Creatinine 0.7 L (0.8-1.5) mg/dL Glucose 125 H (75-100) mg/dL Calcium 7.7 L (8.4-10.2) mg/dL AST 48 H (5-40) units/L ALT 65 H (7-56) units/L Alkaline Phosphatase 164 H (35-129) units/L Total Protein 6.1 L (6.3-8.2) g/dL Albumin 2.3 L (3.9-5) g/dL Calcium panel 09/07/17 Range/Units 06:32 Calcium 7.7 L (8.4-10.2) mg/dL Albumin 2.3 L (3.9-5) g/dL Pituitary panel 09/07/17 Range/Units 06:32 Sodium 141 (137-145) mmol/L Potassium 3.2 L (3.6-5.0) mmol/L Chloride 102.4 (98-107) mmol/L Carbon Dioxide 27 (22-30) mmol/L BUN 10 (9-20) mg/dL Creatinine 0.7 L (0.8-1.5) mg/dL Glucose 125 H (75-100) mg/dL Calcium 7.7 L (8.4-10.2) mg/dL Adrenal panel 09/07/17 Range/Units 06:32 Sodium 141 (137-145) mmol/L Potassium 3.2 L (3.6-5.0) mmol/L Chloride 102.4 (98-107) mmol/L Carbon Dioxide 27 (22-30) mmol/L BUN 10 (9-20) mg/dL Creatinine 0.7 L (0.8-1.5) mg/dL Glucose 125 H (75-100) mg/dL Calcium 7.7 L (8.4-10.2) mg/dL Total Bilirubin 1.30 H (0.1-1.2) mg/dL AST 48 H (5-40) units/L ALT 65 H (7-56) units/L Alkaline Phosphatase 164 H (35-129) units/L Total Protein 6.1 L (6.3-8.2) g/dL Albumin 2.3 L (3.9-5) g/dL
[2017-09-07] MEDS: DESYREL PO SCH (21:14)
[2017-09-07] MEDS ORDERED: MORPHINE IV ONE (23:59)
[2017-09-08] MEDS ORDERED: ALUM-MAG HYDROX-SIMETH 200-200-20MG/5ML PO ONE (00:01)
[2017-09-08 06:42] LABS: Basophils # (Auto) 0.1 K/mm3 (0.0-0.1); Basophils % (Auto) 0.5 % (0.0-1.8); Eosinophils # (Auto) 0.3 K/mm3 (0.0-0.4); Eosinophils % (Auto) 2.4 % (0.0-4.3); Hematocrit 41.3 % (35.5-45.6); Hemoglobin 13.4 gm/dl (11.8-15.2); Lymphocytes # (Auto) 1.9 K/mm3 (1.2-5.4); Lymphocytes % (Auto) 13.5 % (13.4-35.0); Mean Corpuscular HGB Conc 33 % (32-34); Mean Corpuscular Hemoglobin 29 pg (28-32); Mean Corpuscular Volume 88 fl (84-94); Monocytes % (Auto) 14.2 % (0.0-7.3); Platelet Count 235 K/mm3 (140-440); Red Blood Count 4.67 M/mm3 (3.65-5.03); Red Cell Distribution Width 16.1 % (13.2-15.2)
[2017-09-08 07:07] LABS: BUN/Creatinine Ratio 11; Blood Urea Nitrogen 8 mg/dL (9-20); Calcium 8.1 mg/dL (8.4-10.2); Hemolysis Index 8
--- NOTE | 2017-09-08 08:05 | Discharge Summary ---
Providers - Providers Date of Admission: 09/03/17 13:42 Date of discharge: 09/08/17 Attending physician: PRISCILA LESTER 09/03/17 17:02 Consult to Physician [CONS] Routine Consulting Provider: PETRA RECINOS Reason For Exam: Acute pancreatitis Place consult to:: Notified:: A.S. Phone number called:: [phone] Was contact made?: Yes If yes, spoke with:: FLETCHER Time called:: 17:20 Comment:: CHRISTINA NOTIFIED 09/04/17 05:47 Consult to Physician [CONS] Routine Consulting Provider: KAREN SOW Reason For Exam: Transaminitis/Pancreatitis Notified:: yes Primary care physician: INDUSTRIAL TRAINING SPECIALIST Hospitalization Reason for admission: abd pain Condition: Stable Hospital course: 52 yo M with hx of morbid obesity, schizophrenia, HTN presents to hospital with c/o 2 days of epigastric abdominal pain, crampy, and radiating across the upper abdomen. This started after he ate a ham sandwich. He admitted to having 2-3 bouts of nonbloody/nonbilious emesis. LFTs and lipase was noted to be elevated on admission. The patient was admitted with diagnosis of gallstone pancreatitis. Abd CT showed acute pancreatitis. Abd U/S-showed gallstones and wall thickening of gallbladder but no dilation of CBD. MRCP- unable to complete due to pt's weight. The patient underwent ERCP with GI in consultation. CBD dilated to 14 mm. Sphincterotomy done, and duct swept, no filling defects noted. Patient was noted to have normal papilla. Surgery also saw the patient in consultation and performed laparoscopic cholecystectomy. Patient was noted to have a contracted bladder with dense adhesions to the omentum. The patient did well postoperatively and diet was advanced. Patient is felt to have received maximal hospital benefit and will be discharged home. Will need 2 week follow up in surgery office for post op visit. Disposition: - TO HOME OR SELFCARE Time spent for discharge: 32 - Discharge Diagnoses (1) Abdominal pain Status: Acute (2) Acute pancreatitis Status: Acute Qualifiers: Pancreatitis type: idiopathic (3) Gall stone pancreatitis Status: Acute (4) Transaminitis Status: Acute (5) Malnutrition Status: Chronic Qualifiers: Malnutrition type: protein-calorie malnutrition Protein-calorie malnutrition severity: mild Qualified Code(s): E44.1 - Mild protein-calorie malnutrition (6) Morbid obesity Status: Chronic Core Measure Documentation - Palliative Care Palliative Care/ Comfort Measures: Not Applicable - Core Measures Any of the following diagnoses?: none Exam - Constitutional Vitals: Temp Pulse Resp BP Pulse Ox 99.7 F H 89 18 151/98 94 09/07/17 21:50 09/07/17 21:50 09/07/17 21:50 09/07/17 21:50 09/07/17 21:50 General appearance: Present: no acute distress, well-nourished - EENT Eyes: Present: PERRL ENT: hearing intact, clear oral mucosa - Neck Neck: Present: supple, normal ROM - Respiratory Respiratory effort: normal Respiratory: bilateral: CTA - Cardiovascular Heart Sounds: Present: S1 & S2. Absent: rub, click - Extremities Extremities: pulses symmetrical, No edema Peripheral Pulses: within normal limits - Abdominal General gastrointestinal: Present: soft, non-tender, non-distended, normal bowel sounds Male genitourinary: Present: normal - Integumentary Integumentary: Present: clear, warm, dry - Musculoskeletal Musculoskeletal: gait normal, strength equal bilaterally - Psychiatric Psychiatric: appropriate mood/affect, intact judgment & insight - Neurologic Neurologic: CNII-XII intact, moves all extremities Plan Activity: advance as tolerated Weight Bearing Status: Weight Bear as Tolerated Diet: regular Wound: per your surgeon's advice Follow up with: JAG ZHAO DO [Staff Physician] - 14 Days PRIMARY CARE, [Primary Care Provider] - 3-5 Days Prescriptions: oxyCODONE /ACETAMINOPHEN [Percocet 5/325] 1 tab PO Q4HR #20 tab
[2017-09-08 09:25] VITALS: BP 172/120
[2017-09-08] MEDS: HEPARIN SUB-Q SCH (09:41)
[2017-09-08] MEDS: ABILIFY PO SCH (09:42)
[2017-09-08] MEDS: SODIUM CHLORIDE FLUSH SYRINGE 10 ML IV SCH (11:51)
--- NOTE | 2017-09-08 13:01 | Progress Note ---
Assessment and Plan 52 yo M s/p laparoscopic cholecystectomy POD 2 1. gallstone pancreatitis 2. morbid obesity Plan: 1. continue reg diet 2. OOB/ambulate 3. encourage IS/pulm toilet 4. DVT ppx 5. WBC trending down 6. ok to dc from surgery standpoint. Will need 2 week follow up in surgery office for post op visit. D/W Dr. Palacios. Subjective Date of service: 09/08/17 Narrative: Pt seen and examined. No complaints. Soreness of abdominal incisions is controlled by pain medications. He is tolerating a regular diet. No f/c. Nursing notes from overnight noted regarding abdominal pain. Objective Vital Signs - 12hr 09/08/17 07:43 Temperature 98.6 F Pulse Rate 89 Respiratory 18 Rate Blood Pressure 172/120 O2 Sat by Pulse 94 Oximetry - General physical appearance Narrative Exam: Gen: AAOx3. NAD CV: S1, S2+ Resp: even and unlabored Abd: soft, NT, ND. incisions c/d/i Ext: no c/c/e - Labs 09/08/17 06:14 09/08/17 06:14 Diabetes panel 09/08/17 Range/Units 06:14 Sodium 138 (137-145) mmol/L Potassium 3.5 L (3.6-5.0) mmol/L Chloride 97.0 L (98-107) mmol/L Carbon Dioxide 28 (22-30) mmol/L BUN 8 L (9-20) mg/dL Creatinine 0.7 L (0.8-1.5) mg/dL Glucose 111 H (75-100) mg/dL Calcium 8.1 L (8.4-10.2) mg/dL Calcium panel 09/08/17 Range/Units 06:14 Calcium 8.1 L (8.4-10.2) mg/dL Pituitary panel 09/08/17 Range/Units 06:14 Sodium 138 (137-145) mmol/L Potassium 3.5 L (3.6-5.0) mmol/L Chloride 97.0 L (98-107) mmol/L Carbon Dioxide 28 (22-30) mmol/L BUN 8 L (9-20) mg/dL Creatinine 0.7 L (0.8-1.5) mg/dL Glucose 111 H (75-100) mg/dL Calcium 8.1 L (8.4-10.2) mg/dL Adrenal panel 09/08/17 Range/Units 06:14 Sodium 138 (137-145) mmol/L Potassium 3.5 L (3.6-5.0) mmol/L Chloride 97.0 L (98-107) mmol/L Carbon Dioxide 28 (22-30) mmol/L BUN 8 L (9-20) mg/dL Creatinine 0.7 L (0.8-1.5) mg/dL Glucose 111 H (75-100) mg/dL Calcium 8.1 L (8.4-10.2) mg/dL
== END 2017-09-08 14:38 | disposition home or self-care (01) | DRG 853 ==
LOC: ED 07:17 → 3A 13:42
PROVIDERS: ADMIT Internal Medicine; ATTEND Hospitalist
PROC: 0F798ZZ Dilation of Common Bile Duct, Via Natural or Artificial Opening Endoscopic (ICD-10-PCS; principal; 2017-09-05)
PROC: 0FT44ZZ Resection of Gallbladder, Percutaneous Endoscopic Approach (ICD-10-PCS; 2017-09-06)
DX: A41.9 Sepsis, unspecified organism (principal); K85.10 Biliary acute pancreatitis without necrosis or infection; E44.1 Mild protein-calorie malnutrition; Z68.43 Body mass index [BMI] 50.0-59.9, adult; E66.01 Morbid (severe) obesity due to excess calories; F32.9 Major depressive disorder, single episode, unspecified; M19.90 Unspecified osteoarthritis, unspecified site; E11.9 Type 2 diabetes mellitus without complications; F20.9 Schizophrenia, unspecified; E87.6 Hypokalemia; I10 Essential (primary) hypertension; Z71.3 Dietary counseling and surveillance; K81.9 Cholecystitis, unspecified
CPT/HCPCS: 36415; 71046; 74177; 74330; 76705; 80048; 80053; 80074; 81001; 82150; 82248; 82962; 83036; 83615; 83690; 84478; 84484; 85007; 85025; 85027; 85610; 86140; 88304; 90686; 90732; 93005; 93010; C1726; J0330; J0360; J1170; J1644; J1956; J2270; J2370; J2405; J2704; J2710; J3480; J7030; J7040; J7042; Q9967

== ENCOUNTER 2018-06-03 04:18 | Inpatient (IN) | payer MEDICAID, MEDICARE ==
[2018-06-03] MEDS ORDERED: ZOFRAN IV ONE (05:32)
[2018-06-03] MEDS ORDERED: MORPHINE IV ONE (05:32)
[2018-06-03 06:27] LABS: Basophils # (Auto) 0.1 K/mm3 (0.0-0.1); Eosinophils # (Auto) 0.3 K/mm3 (0.0-0.4); Eosinophils % (Auto) 2.7 % (0.0-4.3); Hematocrit 42.9 % (35.5-45.6); Hemoglobin 14.1 gm/dl (11.8-15.2); Lymphocytes % (Auto) 27.8 % (13.4-35.0); Mean Corpuscular HGB Conc 33 % (32-34); Mean Corpuscular Volume 89 fl (84-94); Monocytes # (Auto) 1.2 K/mm3 (0.0-0.8); Monocytes % (Auto) 11.6 % (0.0-7.3); Platelet Count 245 K/mm3 (140-440); Red Blood Count 4.83 M/mm3 (3.65-5.03); Red Cell Distribution Width 14.9 % (13.2-15.2)
[2018-06-03 06:34] LABS: BUN/Creatinine Ratio 20; Blood Urea Nitrogen 14 mg/dL (9-20); Calcium 8.8 mg/dL (8.4-10.2); Hemolysis Index 8
--- NOTE | 2018-06-03 07:19 | Emergency Department Report ---
HPI - General Chief Complaint: Chest Pain Time Seen by Provider: 06/03/18 06:45 - HPI HPI: 53-year-old male presents to the emergency department with the complaint of chest pain and some left-sided numbness and shortness of breath that started last night around midnight. The chest pain is midsternal. He has some numbness to the hand and to 2 fingers of the left hand, as well as numbness to the left leg. He denies any headache, vision change, slurred speech. He has a past medical history of CHF, coronary artery disease with VA, hypertension. 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 The patient had a stress test done here in January of this year that showed nonischemic mild dilated cardiomyopathy. He did not take anything for his symptoms prior to arrival this morning. No recent travel or sick contacts at home. ED Past Medical Hx - Past Medical History Hx Hypertension: Yes Hx CVA: No Hx Heart Attack/AMI: Yes ("light heart attack" 2005) Hx Congestive Heart Failure: Yes Hx Diabetes: No Hx Deep Vein Thrombosis: No Hx GERD: No Hx Arthritis: Yes Hx Headaches / Migraines: No Hx Psychiatric Treatment: Yes (major depression; visual hallucinations; SI) Hx Asthma: No Hx COPD: No Hx Dementia: No Additional medical history: Gout - Surgical History Hx Cholecystectomy: Yes Additional Surgical History: RIGHT KNEE (SCOPE). CIRCUMCISION -4 YEARS AGO - Social History Smoking Status: Never Smoker Substance Use Type: None - Medications Home Medications: Home Medications Medication Instructions Recorded Confirmed Last Taken Type RX: ARIPiprazole [Abilify TAB] 5 mg PO QAM 09/03/17 06/03/18 09/03/17 History RX: traZODone [Desyrel] 150 mg PO QHS 09/03/17 06/03/18 09/02/17 History AtorvaSTATin [Lipitor] 40 mg PO QHS 06/03/18 06/03/18 Unknown History FLUoxetine HCL [PROzac] 40 mg PO QDAY 06/03/18 06/03/18 Unknown History FLUoxetine [PROzac] 20 mg PO QDAY 06/03/18 06/03/18 Unknown History Furosemide [Lasix] 20 mg PO QAM 06/03/18 06/03/18 Unknown History Lisinopril [Zestril TAB] 10 mg PO QDAY 06/03/18 06/03/18 Unknown History NIFEdipine XL [Procardia Xl] 90 mg PO QDAY 06/03/18 06/03/18 Unknown History Pantoprazole [Protonix] 40 mg PO QDAY 06/03/18 06/03/18 Unknown History ED Review of Systems ROS: Stated complaint: CP Other details as noted in HPI Comment: All other systems reviewed and negative Constitutional: denies: chills, fever Eyes: denies: eye pain, eye discharge, vision change ENT: denies: ear pain, throat pain Respiratory: shortness of breath. denies: cough Cardiovascular: chest pain. denies: palpitations Gastrointestinal: denies: abdominal pain, vomiting Genitourinary: denies: dysuria, discharge Musculoskeletal: arthralgia. denies: joint swelling Skin: denies: rash, lesions Neurological: numbness. denies: headache Physical Exam - Physical Exam Vital Signs: Vital Signs 06/03/18 06/03/18 06/03/18 04:57 05:03 05:11 Temperature 98.8 F Pulse Rate 83 66 84 Respiratory 9 L 14 Rate Blood Pressure 123/87 Blood Pressure 123/87 [Right] O2 Sat by Pulse 97 94 Oximetry 06/03/18 06/03/18 06/03/18 05:14 05:15 05:45 Temperature Pulse Rate 82 81 Respiratory 9 L 12 18 Rate Blood Pressure 123/87 107/79 Blood Pressure [Right] O2 Sat by Pulse 100 97 95 Oximetry 06/03/18 06:16 Temperature Pulse Rate 75 Respiratory 15 Rate Blood Pressure Blood Pressure 117/84 [Right] O2 Sat by Pulse 95 Oximetry Physical Exam: GENERAL: The patient is well-developed well-nourished. HEENT: Normocephalic. Atraumatic. Patient has moist mucous membranes. EYES: Extraocular motions are intact. Pupils are equal and reactive to light bilaterally. NECK: Supple. Trachea is midline. CHEST/LUNGS: Clear to auscultation. There is no respiratory distress noted. HEART/CARDIOVASCULAR: Regular. There is no tachycardia. There is no obvious murmur. ABDOMEN: Abdomen is soft, nontender. Patient has normal bowel sounds. Morbidly obese habitus. SKIN: Skin is warm and dry. NEURO: The patient is awake, alert, and oriented. The patient is cooperative. The patient subjectively says that he has decreased feeling to the left leg. No other focal, lateralizing or motor deficits seen. The patient has normal speech. MUSCULOSKELETAL: There is no tenderness or deformity. There is no limitation range of motion. There is no evidence of acute injury. ED Course Vital Signs 06/03/18 06/03/18 06/03/18 04:57 05:03 05:11 Temperature 98.8 F Pulse Rate 83 66 84 Respiratory 9 L 14 Rate Blood Pressure 123/87 Blood Pressure 123/87 [Right] O2 Sat by Pulse 97 94 Oximetry 06/03/18 06/03/18 06/03/18 05:14 05:15 05:45 Temperature Pulse Rate 82 81 Respiratory 9 L 12 18 Rate Blood Pressure 123/87 107/79 Blood Pressure [Right] O2 Sat by Pulse 100 97 95 Oximetry 06/03/18 06:16 Temperature Pulse Rate 75 Respiratory 15 Rate Blood Pressure Blood Pressure 117/84 [Right] O2 Sat by Pulse 95 Oximetry ED Medical Decision Making - Lab Data Result diagrams: 06/03/18 05:46 06/03/18 05:46 - EKG Data -: EKG Interpreted by Me EKG shows normal: sinus rhythm (PACs), axis (left axis), intervals (prolonged qtc), QRS complexes (LVH with IVCD, q waves to anterior), ST-T waves Rate: tachycardia (101 bpm) - EKG Data When compared to previous EKG there are: no significant change Interpretation: unchanged when compared t (04/06/18) - Radiology Data Radiology results: report reviewed, image reviewed interpreted by me: Chest x-ray does not show any pneumothorax, pleural effusion, pneumonia or obvious focal consolidation. CTA CHEST: HISTORY: Shortness of breath, elevated d-dimer. COMPARISON: AP chest performed the same day. TECHNIQUE: Helical CT in 1.25mm intervals following IV contrast. Pulmonary embolus protocol. Sagittal and coronal reformatted images. Rotational MIP images. FINDINGS: Contrast bolus is satisfactory. No pulmonary embolus is identified. Thyroid gland: Normal. Tracheobronchial tree: Normal. Esophagus: Normal. Heart: Normal. Pericardium: Normal. Mediastinum: Normal. Lung Giron: Normal. Pleural Spaces: Normal. Musculoskeletal: Moderate thoracolumbar spondylosis. No fracture or suspicious bony lesion. IMPRESSION: No evidence for pulmonary embolus. Unremarkable CT chest with contrast. CT HEAD WITHOUT CONTRAST: HISTORY: Left-sided numbness. TECHNIQUE: Sequential 2.5mm CT images. COMPARISON: none. FINDINGS: Cerebral Parenchyma: Within normal limits. Cerebellum: Within normal limits. Brainstem: Within normal limits. Ventricles: Normal. Sella: Normal. Extra-axial spaces: Normal. Basal Cisterns: Normal. Intracranial Hemorrhage: None. Midline Shift: None. Calvarium: Normal. Sinuses: 2 cm mucous retention cyst is noted in the inferior left maxillary sinus. The remaining visualized sinuses are well-aerated. Mastoid Air Cells: Normal. Visualized Orbits: Normal. IMPRESSION: Cranial CT scan within normal limits. Transcribed By: TTR Dictated By: ROSEMARY MCLEAN JR, MD Electronically Authenticated By: ROSEMARY MCLEAN JR, MD Signed Date/Time: 06/03/18 1050 - Medical Decision Making Patient presents with the complaints of chest pain and some left-sided numbness that started last night. At first, the patient appeared to have some signs of a left nasolabial paresis but later in his examination everything appears symmetrical. Subjectively he complains of some left-sided decreased sensation to the left hand and left leg. A CT scan of the head without contrast was done but does not show any bleed, shift, mass, ischemia or any other acute process. EKG does not show any signs of ST elevation VA. Patient had slightly elevated and equivocal d-dimer and therefore a CT angiography of the chest was done but it does not show any signs of any pulmonary embolism, dissection or any other a cute process. For all the patient's complaints, he will be admitted to the hospital for further evaluation and treatment and was accepted for admission by the hospitalist, Dr. Gutierres. - Differential Diagnosis CVA, TIA, VA, PE, Pneumonia Critical Care Time: No Critical care attestation.: If time is entered above; I have spent that time in minutes in the direct care of this critically ill patient, excluding procedure time. ED Disposition Clinical Impression: Morbid obesity, Left sided numbness Chest pain Qualifiers: Chest pain type: unspecified Qualified Code(s): R07.9 - Chest pain, unspecified Hypertension Qualifiers: Hypertension type: essential hypertension Qualified Code(s): I10 - Essential (primary) hypertension Disposition: OP ADMIT IP TO THIS HOSP Is pt being admited?: Yes Does the pt Need Aspirin: Yes Condition: Stable Time of Disposition: 11:29
--- NOTE | 2018-06-03 07:51 | XRay Report ---
FINAL REPORT EXAM: XR CHEST 1V AP HISTORY: CP TECHNIQUE: AP portable view(s) of the chest obtained. PRIORS: 04/06/2018 FINDINGS: No mediastinal shift. Cardiac silhouette is not enlarged for portable technique. Low lung volumes. No pneumothorax, effusion, or focal pulmonary opacity identified. No acute skeletal findings. IMPRESSION: No acute pulmonary finding identified.
--- NOTE | 2018-06-03 10:52 | Cat Scan Report ---
CT HEAD WITHOUT CONTRAST: HISTORY: Left-sided numbness. TECHNIQUE: Sequential 2.5mm CT images. COMPARISON: none. FINDINGS: Cerebral Parenchyma: Within normal limits. Cerebellum: Within normal limits. Brainstem: Within normal limits. Ventricles: Normal. Sella: Normal. Extra-axial spaces: Normal. Basal Cisterns: Normal. Intracranial Hemorrhage: None. Midline Shift: None. Calvarium: Normal. Sinuses: 2 cm mucous retention cyst is noted in the inferior left maxillary sinus. The remaining visualized sinuses are well-aerated. Mastoid Air Cells: Normal. Visualized Orbits: Normal. IMPRESSION: Cranial CT scan within normal limits.
--- NOTE | 2018-06-03 10:54 | Cat Scan Report ---
CTA CHEST: HISTORY: Shortness of breath, elevated d-dimer. COMPARISON: AP chest performed the same day. TECHNIQUE: Helical CT in 1.25mm intervals following IV contrast. Pulmonary embolus protocol. Sagittal and coronal reformatted images. Rotational MIP images. FINDINGS: Contrast bolus is satisfactory. No pulmonary embolus is identified. Thyroid gland: Normal. Tracheobronchial tree: Normal. Esophagus: Normal. Heart: Normal. Pericardium: Normal. Mediastinum: Normal. Lung Giron: Normal. Pleural Spaces: Normal. Musculoskeletal: Moderate thoracolumbar spondylosis. No fracture or suspicious bony lesion. IMPRESSION: No evidence for pulmonary embolus. Unremarkable CT chest with contrast.
[2018-06-03] MEDS ORDERED: BABY ASPIRIN PO ONE (11:29)
[2018-06-03] MEDS ORDERED: BABY ASPIRIN ONE (12:53)
[2018-06-03] MEDS ORDERED: HEPARIN SUB-Q SCH (14:00)
[2018-06-03] MEDS ORDERED: NON-FORMULARY (Fluoxetine Hcl [Prozac] 40 MG) PO SCH (21:00)
[2018-06-03] MEDS ORDERED: SODIUM CHLORIDE FLUSH SYRINGE 10 ML IV PRN (21:13)
[2018-06-03] MEDS ORDERED: TYLENOL PO PRN (21:13)
[2018-06-03] MEDS ORDERED: ZOFRAN IV PRN (21:13)
[2018-06-03] MEDS ORDERED: K-DUR PO ONE (21:19)
--- NOTE | 2018-06-03 21:26 | History and Physical Report ---
CHIEF COMPLAINT: Left-sided chest pain since last night. HISTORY OF PRESENT ILLNESS: A 53-year-old with history of hypertension, congestive heart failure, arthritis, comes in for left-sided chest pain since last night with radiation to the left arm. Some tingling in the left hand. No neurologic deficits. No slurred speech. No diaphoresis, no palpitations. Chest pain is intermittent in nature. No shortness of breath. No recent. No recent travel. No fever or chills. PAST MEDICAL HISTORY: Hypertension, CHF, arthritis, major depression, hallucinations and suicidal ideations and gout. PAST SURGICAL HISTORY: Right knee arthroscopy and circumcision recently. SOCIAL HISTORY: Does not smoke. No alcohol, no recreational drugs. FAMILY HISTORY: Hypertension. CURRENT MEDICATIONS: On the chart. REVIEW OF SYSTEMS: Significant for left-sided chest pain and left arm numbness. Otherwise, review of systems negative. No shortness of breath. PHYSICAL EXAMINATION: GENERAL: Middle-aged male, cooperative during examination. VITAL SIGNS: Blood pressure is 168/106, temperature is 97.7, pulse is 78 and respirations are 20. HEENT: Unremarkable. Pupils are equal and reactive. NECK: Supple, no lymphadenopathy, no thyromegaly. LUNGS: Clear to auscultation and percussion. Good air entry. CARDIOVASCULAR: S1, S2 heard. No gallop, no murmur, no rub. Apical impulse in left fifth intercostal space and midclavicular line. ABDOMEN: Soft and benign. No hepatosplenomegaly. No guarding, no rigidity. Hernial orifices are normal. EXTREMITIES: Good pedal pulses. No pedal edema. CENTRAL NERVOUS SYSTEM: Alert and oriented x 4, nonfocal exam. SKIN: Normal. LABORATORY DATA: White count is 10,600, H and H is 14.1 and 42.9, platelet count is 245,000. Sodium is 142, potassium is 3.4, BUN and creatinine is 14 and 0.7, glucose is 110. EKG is normal sinus rhythm, left ventricular hypertrophy, consider ischemia, anterior ST elevation, probably due to LVH. Chest x-ray, no acute pulmonary findings identified. No evidence of pulmonary embolism. Unremarkable CT chest with contrast. ASSESSMENT AND PLAN: 1. Chest pain, rule out myocardial infarction, chest pain protocol. 2. Hypertension. Continue lisinopril and nifedipine. 3. Depression. Continue fluoxetine. 4. Gastroesophageal reflux disease. Continue pantoprazole. 5. Congestive heart failure. Continue Lasix. 7. Hypokalemia, supplemented. 8. Deep venous thrombosis prophylaxis, Lovenox 40 mg subcutaneous daily. Lexiscan in the morning. JOB# [id number] VSM/NTS
[2018-06-03] MEDS ORDERED: PEPCID PO SCH (22:00)
[2018-06-03] MEDS: PROzac PO SCH (22:05)
[2018-06-03] MEDS: PROCARDIA XL PO SCH (22:05)
[2018-06-03] MEDS: DESYREL PO SCH (22:05)
[2018-06-03] MEDS: PROTONIX PO SCH (22:05)
[2018-06-03] MEDS: ZESTRIL PO SCH (22:06)
[2018-06-03] MEDS: LOVENOX SUB-Q SCH (22:06)
[2018-06-03] MEDS: SODIUM CHLORIDE FLUSH SYRINGE 10 ML IV SCH (22:07)
[2018-06-04] MEDS: MORPHINE IV PRN ×2 (02:48→09:13)
[2018-06-04 06:08] LABS: Alanine Aminotransferase 11 units/L (7-56); Albumin 3.5 g/dL (3.9-5); BUN/Creatinine Ratio 23; Blood Urea Nitrogen 16 mg/dL (9-20); Hemolysis Index 9
[2018-06-04] MEDS: ABILIFY PO SCH (09:14)
[2018-06-04] MEDS: PROzac PO SCH (09:16)
[2018-06-04] MEDS: PROTONIX PO SCH (09:16)
[2018-06-04] MEDS: PROCARDIA XL PO SCH (09:16)
[2018-06-04] MEDS: ZESTRIL PO SCH (09:16)
[2018-06-04] MEDS: SODIUM CHLORIDE FLUSH SYRINGE 10 ML IV SCH ×2 (09:17→21:22)
[2018-06-04] MEDS: LASIX PO SCH (09:18)
--- NOTE | 2018-06-04 15:12 | Event Note ---
Date: 06/03/18 See dictated H/p in reports
--- NOTE | 2018-06-04 15:16 | Discharge Summary ---
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 MPI could not be done this time b/c of weight Hospital course: Troponins negative ,L9ow k supplementes,Had Hallucinations for which consult requested Disposition: [id number]/TX-[id number] ANOTHER TYPE HLTHCARE - Discharge Diagnoses (1) Chest pain Status: Acute Qualifiers: Chest pain type: unspecified Qualified Code(s): R07.9 - Chest pain, unspecified Comment: No further w/u (2) Hypertension Status: Chronic Qualifiers: Hypertension type: essential hypertension Qualified Code(s): I10 - Essential (primary) hypertension Comment: Cont antihypertensives (3) Morbid obesity Status: Chronic Comment: COunselled about its dangers on DM and HTN (4) Depression Status: Chronic Qualifiers: Depression Type: unspecified Qualified Code(s): F32.9 - Major depressive disorder, single episode, unspecified Comment: Cont antidepressants (5) DVT prophylaxis Status: Acute Comment: on lovenox Core Measure Documentation - Palliative Care Palliative Care/ Comfort Measures: Not Applicable - Core Measures Any of the following diagnoses?: none Exam - Constitutional Vitals: Temp Pulse Resp BP Pulse Ox 122.0 F H 84 20 104/63 94 06/04/18 14:53 06/04/18 14:53 06/04/18 14:53 06/04/18 14:53 06/04/18 14:53 Plan Follow up with: PRIMARY CAREMD [Primary Care Provider] - 3-5 Days
[2018-06-04] MEDS ORDERED: K-DUR PO SCH (20:00)
[2018-06-04] MEDS: DESYREL PO SCH (21:24)
[2018-06-04] MEDS: PERCOCET 5/325 PO PRN (21:24)
[2018-06-04] MEDS: LOVENOX SUB-Q SCH (21:25)
[2018-06-05] MEDS: ABILIFY PO SCH (09:29)
[2018-06-05] MEDS: PROzac PO SCH (09:30)
[2018-06-05] MEDS: LASIX PO SCH (09:30)
[2018-06-05] MEDS: PROCARDIA XL PO SCH (09:30)
[2018-06-05] MEDS: ZESTRIL PO SCH (09:30)
[2018-06-05] MEDS: SODIUM CHLORIDE FLUSH SYRINGE 10 ML IV SCH ×2 (09:31→21:06)
[2018-06-05] MEDS: PROTONIX PO SCH (09:31)
--- NOTE | 2018-06-05 12:53 | Consultation ---
History of Present Illness - Reason for Consult Consult date: 06/05/18 Reason for consult: Mental Health Evaluation Requesting physician: PRASAD MEJÍA - Chief Complaint Chief complaint: "I don't want to live" - History of Present Psychiatric Illness 53-year-old male presents to the emergency department with the complaint of chest pain and some left-sided numbness and shortness of breath that started last night around midnight. The psychiatry was consulted to see the patient for SI's. This patient is known to me. Today the patient is calm and cooperative, but withdrawn during the assessment. He stated that his depression was brought on by an issue with [employer] and his current residence. He stated that his issues with [employer] has "stressed" him out. He endorsed SI' s with a plan to overdose. The patient has a hx of suicide attempts. He denies HI's and VH's. He stated that he hear voices, but try to ignore them as much as possible. He denies a poor appetite and erratic sleep. He denies recreational drug use and alcohol consumption (etoh). Medications and Allergies Allergies Allergy/AdvReac Type Severity Reaction Status Date / Time No Known Allergies Allergy Verified 05/26/16 12:55 Home Medications Medication Instructions Recorded Confirmed Last Taken Type ARIPiprazole [Abilify TAB] 5 mg PO QAM 09/03/17 06/03/18 09/03/17 History traZODone [Desyrel] 150 mg PO QHS 09/03/17 06/03/18 09/02/17 History AtorvaSTATin [Lipitor] 40 mg PO QHS 06/03/18 06/03/18 Unknown History FLUoxetine HCL [PROzac] 40 mg PO QDAY 06/03/18 06/03/18 Unknown History FLUoxetine [PROzac] 20 mg PO QDAY 06/03/18 06/03/18 Unknown History Furosemide [Lasix] 20 mg PO QAM 06/03/18 06/03/18 Unknown History Lisinopril [Zestril TAB] 10 mg PO QDAY 06/03/18 06/03/18 Unknown History NIFEdipine XL [Procardia Xl] 90 mg PO QDAY 06/03/18 06/03/18 Unknown History Pantoprazole [Protonix TAB] 40 mg PO QDAY 06/03/18 06/03/18 Unknown History ARIPiprazole [Abilify TAB] 5 mg PO QAM tablet 06/04/18 Unknown Rx AtorvaSTATin [Lipitor] 40 mg PO QHS tablet 06/04/18 Unknown Rx Furosemide [Lasix TAB] 20 mg PO QAM tablet 06/04/18 Unknown Rx Lisinopril [Zestril TAB] 10 mg PO QDAY tablet 06/04/18 Unknown Rx oxyCODONE /ACETAMINOPHEN [Percocet 1 tab PO Q6H PRN #12 tablet 06/04/18 Unknown Rx 5/325 mg] Active Meds: Active Medications Acetaminophen (Tylenol) 650 mg PO Q4H PRN PRN Reason: Pain MILD(1-3)/Fever >100.5/BYNUM Aripiprazole (Abilify) 5 mg PO QAM [facility] Last Admin: 06/05/18 09:29 Dose: 5 mg Documented by: Atorvastatin Calcium (Lipitor) 40 mg PO QHS [facility] Last Admin: 06/04/18 21:25 Dose: 40 mg Documented by: Enoxaparin Sodium (Lovenox) 40 mg SUB-Q QDAY@2200 [facility] Last Admin: 06/04/18 21:25 Dose: 40 mg Documented by: Fluoxetine HCl (Prozac) 40 mg PO QDAY [facility] Last Admin: 06/05/18 09:30 Dose: 40 mg Documented by: Furosemide (Lasix) 20 mg PO QAM [facility] Last Admin: 06/05/18 09:30 Dose: 20 mg Documented by: Lisinopril (Zestril) 10 mg PO QDAY [facility] Last Admin: 06/05/18 09:30 Dose: 10 mg Documented by: Morphine Sulfate (Morphine) 2 mg IV Q4H PRN PRN Reason: Pain, Moderate (4-6) Last Admin: 06/04/18 09:13 Dose: 2 mg Documented by: Nifedipine (Procardia Xl) 90 mg PO QDAY [facility] Last Admin: 06/05/18 09:30 Dose: 90 mg Documented by: Ondansetron HCl (Zofran) 4 mg IV Q8H PRN PRN Reason: Nausea And Vomiting Oxycodone/Acetaminophen (Percocet 5/325) 1 tab PO Q6H PRN PRN Reason: Pain, Moderate (4-6) Last Admin: 06/04/18 21:24 Dose: 1 tab Documented by: Pantoprazole Sodium (Protonix) 40 mg PO QDAY [facility] Last Admin: 06/05/18 09:31 Dose: 40 mg Documented by: Sodium Chloride (Sodium Chloride Flush Syringe 10 Ml) 10 ml IV BID [facility] Last Admin: 06/05/18 09:31 Dose: 10 ml Documented by: Sodium Chloride (Sodium Chloride Flush Syringe 10 Ml) 10 ml IV PRN PRN PRN Reason: LINE FLUSH Trazodone HCl (Desyrel) 150 mg PO QHS [facility] Last Admin: 06/04/18 21:24 Dose: 150 mg Documented by: Past psychiatric history - Past Medical History Past Medical History: diabetes Past Surgical History: No surgical history - past Psychiatric treatment and history psychiatric treatment history: Several inpatient psy settings. Denies a fam psy. - Social History Social history: other (Homeless possibly per the patient.) Mental Status Exam - Vital signs Last Vital Signs Temp 98.1 F 06/05/18 11:52 Pulse 84 06/05/18 11:52 Resp 18 06/05/18 11:52 BP 120/86 06/05/18 11:52 Pulse Ox 94 06/05/18 11:52 - Exam Narrative exam: MSE: Appearance: calm, cooperative Behavior: regular eye contact Speech: regular rate and tone Mood: withdrawn Affect: congruent to mood Thought Process: circumstantial Thought Content: denies HI's and VH's Motor Activity: sitting up in chair Cognition: A/O x3 Insight: variable Judgment: poor Results Result Diagrams: 06/03/18 05:46 06/04/18 04:49 All other labs normal. Assessment and Plan Assessment and plan: Impression: Unspecified Mood DO with psy features. Today the patient is calm and cooperative, but withdrawn during the assessment. DDx: Bipolar DO, Schizoaffective DO, MDD with psychosis Recommendation/Plan: Continue 1013 and Abilify 5 mg PO daily for mood/psychosis and Trazodone 150 mg PO HS for sleep. Discussed possible metabolic side effects of Abilify with the patient. Discussed possible suicidality/medication induced lizzy/priapism with the patient reference Trazodone. Dispo: The patient will be referred to inpatient psy services. Will staff with Dr Bridges.
[2018-06-05 16:49] LABS: Amphetamine Screen,Urine PRESUMPTIVE NEGATIVE; Benzodiazepines Screen,Urine PRESUMPTIVE NEGATIVE; Cannabinoid Screen,Urine PRESUMPTIVE NEGATIVE; Cocaine Screen,Urine PRESUMPTIVE NEGATIVE; Methadone Screen,Urine PRESUMPTIVE NEGATIVE; Opiate Screen,Urine PRESUMPTIVE NEGATIVE
[2018-06-05] MEDS: DESYREL PO SCH (21:05)
[2018-06-05] MEDS: LOVENOX SUB-Q SCH (21:05)
[2018-06-05] MEDS: PERCOCET 5/325 PO PRN (21:11)
[2018-06-05 22:48] LABS: Bilirubin,Urine NEG (Negative); Blood,Urine NEG (Negative); Color,Urine Yellow (Yellow); Mucus,Urine 3+ /HPF; Protein,Urine <15 mg/dL mg/dL (Negative)
[2018-06-06] MEDS: ABILIFY PO SCH (11:39)
[2018-06-06] MEDS: PROCARDIA XL PO SCH (11:40)
[2018-06-06] MEDS: ZESTRIL PO SCH (11:40)
[2018-06-06] MEDS: SODIUM CHLORIDE FLUSH SYRINGE 10 ML IV SCH ×2 (11:41→22:07)
[2018-06-06] MEDS: PROTONIX PO SCH (11:41)
[2018-06-06] MEDS: LASIX PO SCH (11:41)
[2018-06-06] MEDS: PROzac PO SCH (11:41)
--- NOTE | 2018-06-06 12:32 | Progress Note ---
Subjective - Reason for Consult Consult date: 06/06/18 Reason for consult: Psychiatry Follow-up - Chief Complaint Chief complaint: "My life is a problem sometimes" 53-year-old male presents to the emergency department with the complaint of chest pain and some left-sided numbness and shortness of breath that started last night around midnight. The psychiatry was consulted to see the patient for SI's. This patient is known to me. Today the patient is calm and cooperative during the assessment. He stated that he is worried about getting his personal belongings from [place] along with finding somewhere to stay when discharged. He stated that these issues cause him to be depressed and wanting to kill himself. He stated that his coping skills isn't the "best," but he try not to act on how he feel. He stated that his his SI's and AH's have "gotten better." He denies HI's and VH's. He denies any side effects of his medications. Mental Status Exam - Vital signs Last Vital Signs Temp 98.1 F 06/06/18 04:06 Pulse 81 06/06/18 04:06 Resp 18 06/06/18 04:06 BP 126/80 06/06/18 04:06 Pulse Ox 95 06/06/18 04:06 - Exam Narrative exam: MSE: Appearance: calm, cooperative Behavior: regular eye contact Speech: regular rate and tone Mood: "a little better" Affect: flat Thought Process: circumstantial Thought Content: denies HI's and VH's Motor Activity: sitting up in chair Cognition: A/O x3 Insight: variable Judgment: poor Assessment and Plan Impression: Unspecified Mood DO with psy features. Today the patient is calm and cooperative during the assessment. DDx: Bipolar DO, Schizoaffective DO, MDD with psychosis Recommendation/Plan: Continue 1013 and Abilify 5 mg PO daily for mood/psychosis, Trazodone 150 mg PO HS for sleep, Prozac 40 mg PO daily for depression. Discussed possible metabolic side effects of Abilify with the patient. Discussed possible suicidality/medication induced lizzy with the patient reference reference antidepressants. Discussed possible priapism with the patient reference Trazodone. Case Mgmt involvement, the patient may need assistance with gathering his personal belonging from [facility] and placement if discharged for [facility]. Dispo: The patient was referred to inpatient psy services. Will staff with Dr Bridges.
--- NOTE | 2018-06-06 14:24 | Progress Note ---
Assessment and Plan - Patient Problems (1) Chest pain Current Visit: Yes Status: Acute Qualifiers: Chest pain type: unspecified Qualified Code(s): R07.9 - Chest pain, unspecified Plan to address problem: W/u negative Stress test negative (2) Hypertension Current Visit: Yes Status: Chronic Qualifiers: Hypertension type: essential hypertension Qualified Code(s): I10 - Essential (primary) hypertension Plan to address problem: Reasonably well controlled Cont antihypertensives (3) Morbid obesity Current Visit: Yes Status: Chronic Plan to address problem: Counselled (4) Depression Current Visit: No Status: Chronic Qualifiers: Depression Type: unspecified Qualified Code(s): F32.9 - Major depressive disorder, single episode, unspecified Plan to address problem: On Trazodone (5) DVT prophylaxis Current Visit: No Status: Acute Plan to address problem: On lovenox and GI prophylaxis Subjective Date of service: 06/05/18 Principal diagnosis: Suicidal ideation Interval history: Still suicidal Objective - Constitutional Vitals: Vital Signs - 12hr 06/06/18 04:06 Temperature 98.1 F Pulse Rate 81 Respiratory 18 Rate Blood Pressure 126/80 O2 Sat by Pulse 95 Oximetry General appearance: Present: no acute distress, well-nourished - EENT Eyes: PERRL, EOM intact ENT: hearing intact, clear oral mucosa Ears: bilateral: normal - Neck Neck: supple, normal ROM - Respiratory Respiratory effort: normal Respiratory: bilateral: CTA - Breasts Breasts: normal - Cardiovascular Heart rate: 78 Rhythm: regular Heart Sounds: Present: S1 & S2. Absent: gallop, rub Extremities: no ischemia, pulses intact, No edema, normal color, Full ROM - Gastrointestinal General gastrointestinal: Present: soft, non-tender, non-distended, normal bowel sounds - Genitourinary Male genitourinary: deferred, normal - Integumentary Integumentary: clear, warm, dry - Musculoskeletal Musculoskeletal: 1, strength equal bilaterally - Neurologic Neurologic: moves all extremities - Psychiatric Psychiatric: memory intact, appropriate mood/affect, intact judgment & insight - Labs CBC & Chem 7: 06/03/18 05:46 06/04/18 04:49
--- NOTE | 2018-06-06 14:39 | Progress Note ---
Assessment and Plan - Patient Problems (1) Chest pain Current Visit: Yes Status: Acute Qualifiers: Chest pain type: unspecified Qualified Code(s): R07.9 - Chest pain, unspecified Plan to address problem: W/u negative Stress test negative (2) Hypertension Current Visit: Yes Status: Chronic Qualifiers: Hypertension type: essential hypertension Qualified Code(s): I10 - Essential (primary) hypertension Plan to address problem: Reasonably well controlled Cont antihypertensives (3) Morbid obesity Current Visit: Yes Status: Chronic Plan to address problem: Counselled (4) Depression Current Visit: No Status: Chronic Qualifiers: Depression Type: unspecified Qualified Code(s): F32.9 - Major depressive disorder, single episode, unspecified Plan to address problem: From Psych consult---- Impression: Unspecified Mood DO with psy features. Today the patient is calm and cooperative during the assessment. DDx: Bipolar DO, Schizoaffective DO, MDD with psychosis Recommendation/Plan: Continue 1013 and Abilify 5 mg PO daily for mood/psychosis, Trazodone 150 mg PO HS for sleep, Prozac 40 mg PO daily for depression. Discussed possible metabolic side effects of Abilify with the patient. Discussed possible suicidality/medication induced lizzy with the patient reference reference antidepressants. Discussed possible priapism with the patient reference Trazodone. Case Mgmt involvement, the patient may need assistance with gathering his personal belonging from [facility] and placement if discharged for [facility]. Dispo: The patient was referred to inpatient psy services. (5) Hypokalemia Current Visit: Yes Status: Acute Plan to address problem: Supplemented (6) DVT prophylaxis Current Visit: No Status: Acute Plan to address problem: On lovenox and GI prophylaxis (7) Discharge planning issues Current Visit: Yes Status: Acute Plan to address problem: Awaiting Inpatient Psych placement Subjective Date of service: 06/06/18 Principal diagnosis: Suicidal ideation Interval history: Still suicidal Objective - Constitutional Vitals: Vital Signs - 12hr 06/06/18 04:06 Temperature 98.1 F Pulse Rate 81 Respiratory 18 Rate Blood Pressure 126/80 O2 Sat by Pulse 95 Oximetry General appearance: Present: no acute distress, well-nourished - EENT Eyes: PERRL, EOM intact ENT: hearing intact, clear oral mucosa Ears: bilateral: normal - Neck Neck: supple, normal ROM - Respiratory Respiratory effort: normal Respiratory: bilateral: CTA - Breasts Breasts: normal - Cardiovascular Heart rate: 78 Rhythm: regular Heart Sounds: Present: S1 & S2. Absent: gallop, rub Extremities: pulses intact, No edema, normal color, Full ROM - Gastrointestinal General gastrointestinal: Present: soft, non-tender, non-distended, normal bowel sounds - Genitourinary Male genitourinary: normal - Integumentary Integumentary: clear, warm, dry - Musculoskeletal Musculoskeletal: 1, strength equal bilaterally - Neurologic Neurologic: moves all extremities - Psychiatric Psychiatric: memory intact, appropriate mood/affect, intact judgment & insight - Labs CBC & Chem 7: 06/03/18 05:46 06/04/18 04:49
[2018-06-06] MEDS: DESYREL PO SCH (22:10)
[2018-06-06] MEDS: LOVENOX SUB-Q SCH (22:10)
[2018-06-06] MEDS: PERCOCET 5/325 PO PRN (22:21)
[2018-06-07] MEDS ORDERED: K-DUR PO ONE (08:11)
[2018-06-07] MEDS ORDERED: K-DUR PO NR (10:30)
[2018-06-07] MEDS: ABILIFY PO SCH (10:34)
[2018-06-07] MEDS: PROzac PO SCH (10:34)
[2018-06-07] MEDS: PERCOCET 5/325 PO PRN (10:34)
[2018-06-07] MEDS: PROCARDIA XL PO SCH (10:35)
[2018-06-07] MEDS: LASIX PO SCH (10:35)
[2018-06-07] MEDS: ZESTRIL PO SCH (10:35)
[2018-06-07] MEDS: PROTONIX PO SCH (10:35)
[2018-06-07] MEDS: SODIUM CHLORIDE FLUSH SYRINGE 10 ML IV SCH (10:36)
--- NOTE | 2018-06-07 10:37 | Progress Note ---
Subjective - Reason for Consult Consult date: 06/07/18 Reason for consult: Psychiatry Follow-up - Chief Complaint Chief complaint: "I'm feeling better" 53-year-old male presents to the emergency department with the complaint of chest pain and some left-sided numbness and shortness of breath. The psychiatry was consulted to see the patient for SI's. This patient is known to me. Today the patient is calm and cooperative during the assessment. He stated that the voices and his SI's have "decreased." He stated that he feel like things may get better for him soon. He denies HI's and VH's. He denies any side effects of his medications. Mental Status Exam - Vital signs Last Vital Signs Temp 98.4 F 06/06/18 15:50 Pulse 86 06/06/18 15:50 Resp 20 06/06/18 15:50 BP 121/72 06/06/18 15:50 Pulse Ox 94 06/06/18 15:50 - Exam Narrative exam: MSE: Appearance: calm, cooperative Behavior: regular eye contact Speech: regular rate and tone Mood: "okay" Affect: congruent to mood Thought Process: circumstantial Thought Content: denies HI's and VH's Motor Activity: sitting up in chair Cognition: A/O x3 Insight: variable Judgment: variable Assessment and Plan Impression: Unspecified Mood DO with psy features. Today the patient is calm and cooperative during the assessment. DDx: Bipolar DO, Schizoaffective DO, MDD with psychosis Recommendation/Plan: Continue 1013 and Abilify 5 mg PO daily for mood/psychosis, Trazodone 150 mg PO HS for sleep, Prozac 40 mg PO daily for depression. Discussed possible metabolic side effects of Abilify with the patient. Discussed possible suicidality/medication induced lizzy with the patient reference refe rence antidepressants. Discussed possible priapism with the patient reference Trazodone. Case Mgmt involvement, the patient may need assistance with gathering [facility] and placement if discharged for [facility]. Dispo:The patient was accepted at [facility] for inpatient psy services. Staffed with Dr Toya Trujillo.
[2018-06-07 11:11] LABS: BUN/Creatinine Ratio 17; Blood Urea Nitrogen 15 mg/dL (9-20); Calcium 8.7 mg/dL (8.4-10.2); Hemolysis Index 7
[2018-06-07 13:10] VITALS: BP 106/72
--- NOTE | 2018-06-12 13:08 | Query- Chest Pain ---
Jeffrey Conner Clay Date: 06/12/18 [employer]/CDS: Catarino/Darvin Phone#: [phone] Exercise your independent professional judgment when responding to query. Questions asked do not imply a particular answer is desired or expected. We greatly appreciate your clarification on this issue. Clinical Documentation States: 53-year-old male presents to the emergency department with the complaint of chest pain and some left-sided numbness and shortness of breath that started last night around midnight. The chest pain is midsternal. He has a past medical history of CHF, coronary artery disease with OK, hypertension.The patient had a stress test done here in January of this year that showed nonischemic mild dilated cardiomyopathy Assessment and Plan (1) Chest pain (2) Hypertension (3) Morbid obesity Clinical Findings Show: 06/03/18(05:46) 06/03/18(8:22) 06/03/18(11:01) Troponin <0.010 <0.010 <0.010 CTA Chest 06/03/18---No evidence for pulmonary embolism. Please document the etiology of Chest Pain: [ ] Myocardial Infarction [ ] Pneumonia [ ] Mediastinitis [ ] Costochondritis [ ] Pulmonary Embolism [ ] Coronary Artery Disease [ ] GERD [ ] Other: [ ] Comment/Explanation: Present on Admission: [ ] Yes (Y) [ ] Clinically undeterminable (W) [ ] No(N) Please document response in your Progress Notes and/or Discharge Summary and indicate if the condition was present on admission. ANNETTA
== END 2018-06-07 15:20 | DRG 392 ==
LOC: ED 04:18 → 4A 11:29 → EEVIPCON 11:29 → 3A 06-06 21:06
PROVIDERS: ADMIT Internal Medicine; ATTEND Internal Medicine
DX: K21.9 Gastro-esophageal reflux disease without esophagitis (principal); Z68.43 Body mass index [BMI] 50.0-59.9, adult; F32.3 Major depressive disorder, single episode, severe with psychotic features; I42.0 Dilated cardiomyopathy; E87.6 Hypokalemia; I25.10 Atherosclerotic heart disease of native coronary artery without angina pectoris; E66.01 Morbid (severe) obesity due to excess calories; R20.0 Anesthesia of skin; I11.0 Hypertensive heart disease with heart failure; M10.9 Gout, unspecified; I50.9 Heart failure, unspecified; F32.9 Major depressive disorder, single episode, unspecified; Z82.49 Family history of ischemic heart disease and other diseases of the circulatory system; Z79.899 Other long term (current) drug therapy; Z79.82 Long term (current) use of aspirin; I25.2 Old myocardial infarction; Z71.3 Dietary counseling and surveillance
CPT/HCPCS: 36415; 70450; 71045; 71275; 80048; 80053; 80307; 81001; 83036; 83880; 84484; 85025; 85379; 87116; 93005; 93010; G0378; A9270-GY; J1644; J1650; J2270; J2405; Q9967

== ENCOUNTER 2018-07-22 17:21 | Inpatient (IN) | payer MEDICARE ==
[2018-07-22] MEDS ORDERED: ZOFRAN IV ONE (18:04)
[2018-07-22] MEDS ORDERED: SUBLIMAZE IV ONE (18:04)
[2018-07-22] MEDS ORDERED: ASPIRIN PO ONE (18:04)
[2018-07-22] MEDS ORDERED: NITRO-BID 2% TP ONE (18:04)
--- NOTE | 2018-07-22 18:18 | Emergency Department Report ---
HPI - General Chief Complaint: Psych Time Seen by Provider: 07/22/18 17:39 - HPI HPI: Room 21 The patient is a 53-year-old male presenting with a chief complaint of suicidal ideation and chest pain. The patient states his mother's birthday is coming up (07/24) which causes him to get depressed. The patient states for the past 3 days he has had suicidal ideation. The patient states 3 days ago he took a knife and was going to cut his throat other [facility] him. The patient states for 1 hours he's had substernal chest pain is sharp and constant in nature associated with shortness of breath, diaphoresis and nausea without vomiting. Patient also complains of sores on his abdomen and right thigh for 3 days. The patient currently this is chest pain score 10/10. Patient states he isn't certain if he is a rather stress test but has never had a cardiac catheterization Location: [See above] Duration: [See above] Quality: [See above] Severity: [See above] Modifying factors: [see above] Context: [see above] Mode of transportation: [not driving] ED Past Medical Hx - Past Medical History Hx Hypertension: Yes Hx Heart Attack/AMI: Yes ("light heart attack" 2005) Hx Congestive Heart Failure: Yes Hx Arthritis: Yes Hx Psychiatric Treatment: Yes (major depression; visual hallucinations; SI) Additional medical history: Gout - Surgical History Hx Cholecystectomy: Yes Additional Surgical History: RIGHT KNEE (SCOPE). CIRCUMCISION -4 YEARS AGO - Family History Family history: no significant - Social History Smoking Status: Never Smoker Substance Use Type: Alcohol (rarely), Cocaine (crack. Last used 3 days ago) - Medications Home Medications: Home Medications Medication Instructions Recorded Confirmed Last Taken Type ARIPiprazole [Abilify TAB] 5 mg PO QAM 09/03/17 06/03/18 09/03/17 History traZODone [Desyrel] 150 mg PO QHS 09/03/17 06/03/18 09/02/17 History AtorvaSTATin [Lipitor] 40 mg PO QHS 06/03/18 06/03/18 Unknown History FLUoxetine HCL [PROzac] 40 mg PO QDAY 06/03/18 06/03/18 Unknown History FLUoxetine [PROzac] 20 mg PO QDAY 06/03/18 06/03/18 Unknown History Furosemide [Lasix] 20 mg PO QAM 06/03/18 06/03/18 Unknown History Lisinopril [Zestril TAB] 10 mg PO QDAY 06/03/18 06/03/18 Unknown History NIFEdipine XL [Procardia Xl] 90 mg PO QDAY 06/03/18 06/03/18 Unknown History Pantoprazole [Protonix TAB] 40 mg PO QDAY 06/03/18 06/03/18 Unknown History ARIPiprazole [Abilify TAB] 5 mg PO QAM tablet 06/04/18 Unknown Rx AtorvaSTATin [Lipitor] 40 mg PO QHS tablet 06/04/18 Unknown Rx Furosemide [Lasix TAB] 20 mg PO QAM tablet 06/04/18 Unknown Rx Lisinopril [Zestril TAB] 10 mg PO QDAY tablet 06/04/18 Unknown Rx oxyCODONE /ACETAMINOPHEN [Percocet 1 tab PO Q6H PRN #12 tablet 06/04/18 Unknown Rx 5/325 mg] ED Review of Systems ROS: Stated complaint: SI/BED SORES Other details as noted in HPI Constitutional: diaphoresis Eyes: denies: eye pain ENT: denies: throat pain Respiratory: shortness of breath Cardiovascular: chest pain Endocrine: no symptoms reported Gastrointestinal: nausea. denies: vomiting Genitourinary: denies: dysuria Musculoskeletal: denies: back pain Skin: lesions Neurological: denies: headache Psychiatric: suicidal thoughts Physical Exam - Physical Exam Vital Signs: Vital Signs 07/22/18 07/22/18 07/22/18 17:35 17:40 17:50 Temperature 98.0 F Pulse Rate 110 H 106 H Respiratory 18 18 14 Rate Blood Pressure 181/94 Blood Pressure 126/78 [Left] O2 Sat by Pulse 96 96 98 Oximetry Physical Exam: GENERAL: The patient is well-developed well-nourished obese male lying on stretcher not appearing to be in acute distress. [] HEENT: Normocephalic. Atraumatic. Extraocular motions are intact. Patient has moist mucous membranes. NECK: Supple. Trachea midline CHEST/LUNGS: Clear to auscultation. There is no respiratory distress noted. HEART/CARDIOVASCULAR: Regular. There is no tachycardia. There is no gallop rub or murmur. ABDOMEN: Abdomen is soft, nontender. Patient has normal bowel sounds. There is no abdominal distention. SKIN: There are multiple centimeter and subcentimeter subacute appearing ulcerations to the right abdomen, lower abdomen and right thigh. No drainage visualized. There is no edema. There is no diaphoresis. NEURO: The patient is awake, alert, and oriented. The patient is cooperative. The patient has normal speech MUSCULOSKELETAL: There is no evidence of acute injury. ED Course Vital Signs 07/22/18 07/22/18 07/22/18 17:35 17:40 17:50 Temperature 98.0 F Pulse Rate 110 H 106 H Respiratory 18 18 14 Rate Blood Pressure 181/94 Blood Pressure 126/78 [Left] O2 Sat by Pulse 96 96 98 Oximetry ED Medical Decision Making - Lab Data Result diagrams: 07/22/18 18:51 07/22/18 18:51 Laboratory Tests 07/22/18 07/22/18 07/22/18 18:50 18:50 18:51 WBC 13.8 H RBC 4.88 Hgb 14.6 Hct 42.5 MCV 87 MCH 30 MCHC 34 RDW 15.3 H Plt Count 322 Lymph % (Auto) 19.5 [place] % (Auto) 10.7 H Eos % (Auto) 2.1 Baso % (Auto) 1.0 Lymph # 2.7 [place] # 1.5 H Eos # 0.3 Baso # 0.1 Seg Neutrophils % 66.7 Seg Neutrophils # 9.2 H Sodium Potassium Chloride Carbon Dioxide Anion Gap BUN Creatinine Estimated GFR BUN/Creatinine Ratio Glucose Calcium CK-MB (CK-2) Troponin T Urine Color [place] Urine Turbidity Cloudy Urine pH 7.0 Ur Specific [place] 1.019 Urine Protein 100 mg/dl Urine Glucose (UA) Neg Urine Ketones Neg Urine Blood Mod Urine Nitrite Neg Urine Bilirubin Neg Urine Urobilinogen 2.0 Ur Leukocyte Esterase Lg Urine WBC (Auto) > 182.0 H Urine RBC (Auto) 17.0 U Epithel Cells (Auto) 2.0 WBC Casts 18 Urine Mucus 2+ Salicylates Urine Opiates Screen Presumptive negative Urine Methadone Screen Presumptive negative Acetaminophen Ur Barbiturates Screen Presumptive negative Ur Phencyclidine Scrn Presumptive negative Ur Amphetamines Screen Presumptive negative U Benzodiazepines Scrn Presumptive negative Urine Cocaine Screen Presumptive positive U Marijuana (THC) Screen Presumptive negative Drugs of Abuse Note Disclamer Plasma/Serum Alcohol 07/22/18 07/22/18 07/22/18 18:51 18:51 18:51 WBC RBC Hgb Hct MCV MCH MCHC RDW Plt Count Lymph % (Auto) [place] % (Auto) Eos % (Auto) Baso % (Auto) Lymph # [place] # Eos # Baso # Seg Neutrophils % Seg Neutrophils # Sodium 142 Potassium 3.6 Chloride 102.4 Carbon Dioxide 30 Anion Gap 13 BUN 19 Creatinine 0.9 Estimated GFR > 60 BUN/Creatinine Ratio 21 Glucose 87 Calcium 8.8 CK-MB (CK-2) Troponin T Urine Color Urine Turbidity Urine pH Ur Specific [place] Urine Protein Urine Glucose (UA) Urine Ketones Urine Blood Urine Nitrite Urine Bilirubin Urine Urobilinogen Ur Leukocyte Esterase Urine WBC (Auto) Urine RBC (Auto) U Epithel Cells (Auto) WBC Casts Urine Mucus Salicylates < 0.3 L Urine Opiates Screen Urine Methadone Screen Acetaminophen < 5.0 L Ur Barbiturates Screen Ur Phencyclidine Scrn Ur Amphetamines Screen U Benzodiazepines Scrn Urine Cocaine Screen U Marijuana (THC) Screen Drugs of Abuse Note Plasma/Serum Alcohol 07/22/18 07/22/18 18:51 18:51 WBC RBC Hgb Hct MCV MCH MCHC RDW Plt Count Lymph % (Auto) [place] % (Auto) Eos % (Auto) Baso % (Auto) Lymph # [place] # Eos # Baso # Seg Neutrophils % Seg Neutrophils # Sodium Potassium Chloride Carbon Dioxide Anion Gap BUN Creatinine Estimated GFR BUN/Creatinine Ratio Glucose Calcium CK-MB (CK-2) 4.1 H Troponin T 0.015 Urine Color Urine Turbidity Urine pH Ur Specific [place] Urine Protein Urine Glucose (UA) Urine Ketones Urine Blood Urine Nitrite Urine Bilirubin Urine Urobilinogen Ur Leukocyte Esterase Urine WBC (Auto) Urine RBC (Auto) U Epithel Cells (Auto) WBC Casts Urine Mucus Salicylates Urine Opiates Screen Urine Methadone Screen Acetaminophen Ur Barbiturates Screen Ur Phencyclidine Scrn Ur Amphetamines Screen U Benzodiazepines Scrn Urine Cocaine Screen U Marijuana (THC) Screen Drugs of Abuse Note Plasma/Serum Alcohol < 0.01 - EKG Data -: EKG Interpreted by Me EKG shows normal: sinus rhythm Rate: tachycardia (103 bpm) - EKG Data When compared to previous EKG there are: no significant change Interpretation: unchanged when compared t (06/04/2018) - Radiology Data Radiology results: image reviewed (chest x-ray) interpreted by me: Chest x-ray-no pneumothorax - Differential Diagnosis ACS, pericarditis, GERD, suicidal ideation Critical care attestation.: If time is entered above; I have spent that time in minutes in the direct care of this critically ill patient, excluding procedure time. ED Disposition Clinical Impression: Chest pain, Suicidal ideation, Cocaine abuse, UTI (urinary tract infection) Disposition: OP ADMIT IP TO THIS HOSP Is pt being admited?: Yes Does the pt Need Aspirin: Yes Condition: Fair Instructions: Chest Pain (ED) Referrals: JULIAN SLOAN MD [Primary Care Provider] - 3-5 Days Time of Disposition: 19:43 (hospitalist paged (Dr Gutierres))
[2018-07-22 19:09] LABS: Basophils # (Auto) 0.1 K/mm3 (0.0-0.1); Eosinophils # (Auto) 0.3 K/mm3 (0.0-0.4); Eosinophils % (Auto) 2.1 % (0.0-4.3); Hematocrit 42.5 % (35.5-45.6); Hemoglobin 14.6 gm/dl (11.8-15.2); Lymphocytes # (Auto) 2.7 K/mm3 (1.2-5.4); Lymphocytes % (Auto) 19.5 % (13.4-35.0); Mean Corpuscular HGB Conc 34 % (32-34); Mean Corpuscular Volume 87 fl (84-94); Monocytes # (Auto) 1.5 K/mm3 (0.0-0.8); Monocytes % (Auto) 10.7 % (0.0-7.3); Platelet Count 322 K/mm3 (140-440); Red Blood Count 4.88 M/mm3 (3.65-5.03); Red Cell Distribution Width 15.3 % (13.2-15.2)
[2018-07-22 19:14] LABS: Amphetamine Screen,Urine PRESUMPTIVE NEGATIVE; Benzodiazepines Screen,Urine PRESUMPTIVE NEGATIVE; Bilirubin,Urine NEG (Negative); Blood,Urine MOD (Negative); Cannabinoid Screen,Urine PRESUMPTIVE NEGATIVE; Color,Urine Amber (Yellow); Methadone Screen,Urine PRESUMPTIVE NEGATIVE; Mucus,Urine 2+ /HPF; Opiate Screen,Urine PRESUMPTIVE NEGATIVE; White Blood Cell Casts,Urine 18 /LPF
[2018-07-22 19:19] LABS: WBC,Urine > 182.0 /HPF (0.0-6.0)
[2018-07-22 19:27] LABS: BUN/Creatinine Ratio 21; Blood Urea Nitrogen 19 mg/dL (9-20); Calcium 8.8 mg/dL (8.4-10.2); Creatine Kinase MB 4.1 ng/mL (0.0-4.0); Hemolysis Index 119
[2018-07-22 19:36] LABS: Cocaine Screen,Urine PRESUMPTIVE POSITIVE
[2018-07-22] MEDS ORDERED: LEVAQUIN PO ONE (19:40)
--- NOTE | 2018-07-22 21:29 | XRay Report ---
FINAL REPORT PROCEDURE: XR CHEST 1V AP TECHNIQUE: Chest radiograph anteroposterior view. CPT 69781 HISTORY: chest pain COMPARISON: 06/03/2018. FINDINGS: Heart: Normal. Mediastinum/Vessels: Normal. Lungs/Pleural space: Normal. Bony thorax: No acute osseous abnormality. Life support devices: None. IMPRESSION: No acute cardiopulmonary abnormality.
[2018-07-22] MEDS ORDERED: SODIUM CHLORIDE FLUSH SYRINGE 10 ML IV PRN (21:36)
[2018-07-22] MEDS ORDERED: ZOFRAN IV PRN (21:36)
--- NOTE | 2018-07-22 21:49 | History and Physical Report ---
History of Present Illness Date of examination: 07/22/18 History of present illness: 53-year-old man with a history of hypertension, coronary artery disease, depression, gout, schizophrenia comes emergency room with complaints of chest pain that started today Pain is in the left chest which she describes a sharp pain intermittent every 5 minutes, intensity 4/10, no radiation, relief with pain medication given in the ER. Admits to nausea, no shortness of breath, diaphoresis or palpitation. He had a stress test in January 2018 which showed no ischemia. Also state that he is suicidal, he is depressed because of the loss of his mother , declining health. Review of systems Constitutional: no weight loss, chills, fever Ears, eyes, nose, mouth and throat: no nasal congestion, no nasal discharge, no sinus pressure, no vision change, no red eye. Neck: No neck pain or rigidity. Cardiovascular: no palpitations Respiratory: no cough, shortness of breath Gastrointestinal: no abdominal pain hematochezia Genitourinary : no frequency , no hematuria Musculoskeletal: no joint swelling or muscle ache Integumentary: no rash, no pruritis Neurological: no parathesias, no numbness, no focal weakness Endocrine: no cold or heat intolerance, no polyuria or polydipsia Hematologic/Lymphatic: no easy bruising, no easy bleeding, no gland swelling Allergic/Immunologic: no urticaria, no angioedema. PAST MEDICAL HISTORY: hypertension, coronary artery disease, depression, gout, schizophrenia PAST SURGICAL HISTORY: Cholecystectomy SOCIAL HISTORY: no alcohol, tobacco, marijuana use FAMILY HISTORY: Hypertension Medications and Allergies Allergies Allergy/AdvReac Type Severity Reaction Status Date / Time No Known Allergies Allergy Verified 05/26/16 12:55 Home Medications Medication Instructions Recorded Confirmed Last Taken Type ARIPiprazole [Abilify TAB] 5 mg PO QAM 09/03/17 06/03/18 09/03/17 History traZODone [Desyrel] 150 mg PO QHS 09/03/17 06/03/18 09/02/17 History AtorvaSTATin [Lipitor] 40 mg PO QHS 06/03/18 06/03/18 Unknown History FLUoxetine HCL [PROzac] 40 mg PO QDAY 06/03/18 06/03/18 Unknown History FLUoxetine [PROzac] 20 mg PO QDAY 06/03/18 06/03/18 Unknown History Furosemide [Lasix] 20 mg PO QAM 06/03/18 06/03/18 Unknown History Lisinopril [Zestril TAB] 10 mg PO QDAY 06/03/18 06/03/18 Unknown History NIFEdipine XL [Procardia Xl] 90 mg PO QDAY 06/03/18 06/03/18 Unknown History Pantoprazole [Protonix TAB] 40 mg PO QDAY 06/03/18 06/03/18 Unknown History ARIPiprazole [Abilify TAB] 5 mg PO QAM tablet 06/04/18 Unknown Rx AtorvaSTATin [Lipitor] 40 mg PO QHS tablet 06/04/18 Unknown Rx Furosemide [Lasix TAB] 20 mg PO QAM tablet 06/04/18 Unknown Rx Lisinopril [Zestril TAB] 10 mg PO QDAY tablet 06/04/18 Unknown Rx oxyCODONE /ACETAMINOPHEN [Percocet 1 tab PO Q6H PRN #12 tablet 06/04/18 Unknown Rx 5/325 mg] Exam - Physical Exam Narrative exam: General Apperance: The patient lying in bed, breathing comfortable HEENT: Normocephalic, atraumatic. Pupils equally round and reactive to light, EOMI, no sclericterus or JVD or thyromegaly or nodule. , no carotid bruit, mucous membranes moist, no exudate or erythema Heart: S1-S2, regular is rhythm Lungs: Clear to auscultation bilaterally, breathing comfortable Abdomen: Positive bowel sounds, soft, nontender, nondistended, no organomegaly Extremities: No edema cyanosis clubbing Skin: Excoriations on the thighs, penis, no rash, nodule, warm and dry Neuro: cranial nerves 2-12 intact, speech is fluent, motor/sensory intact - Constitutional Vitals: Temp Pulse Resp BP Pulse Ox 98.0 F 107 H 17 131/90 100 07/22/18 17:50 07/22/18 20:30 07/22/18 20:30 07/22/18 20:30 07/22/18 20:30 Results - Labs CBC & Chem 7: 07/22/18 18:51 07/22/18 18:51 Labs: Abnormal lab results 07/22/18 07/22/18 07/22/18 Range/Units 18:50 18:51 18:51 WBC 13.8 H (4.5-11.0) K/mm3 RDW 15.3 H (13.2-15.2) % [place] % (Auto) 10.7 H (0.0-7.3) % [place] # 1.5 H (0.0-0.8) K/mm3 Seg Neutrophils # 9.2 H (1.8-7.7) K/mm3 CK-MB (CK-2) (0.0-4.0) ng/mL Urine WBC (Auto) > 182.0 H (0.0-6.0) /HPF Salicylates < 0.3 L (2.8-20.0) mg/dL Acetaminophen (10.0-30.0) ug/mL 07/22/18 07/22/18 Range/Units 18:51 18:51 WBC (4.5-11.0) K/mm3 RDW (13.2-15.2) % [place] % (Auto) (0.0-7.3) % [place] # (0.0-0.8) K/mm3 Seg Neutrophils # (1.8-7.7) K/mm3 CK-MB (CK-2) 4.1 H (0.0-4.0) ng/mL Urine WBC (Auto) (0.0-6.0) /HPF Salicylates (2.8-20.0) mg/dL Acetaminophen < 5.0 L (10.0-30.0) ug/mL - Imaging and Cardiology EKG: image reviewed Chest x-ray: report reviewed Assessment and Plan Assessment Unstable angina Suicidal ideation Respiratory tract infection Coronary artery disease Hypertension Depression Schizophrenia Plan Admit medicine Check cardiac enzymes, consult cardiology Placed on 1012, place with a sitter, consult psych Aspirin, IV morphine, rocephin, DVT prophylaxis Consult wound care
[2018-07-22] MEDS: SODIUM CHLORIDE FLUSH SYRINGE 10 ML IV SCH (21:56)
[2018-07-22 22:25] LABS: Creatine Kinase MB 4.2 ng/mL (0.0-4.0)
[2018-07-22] MEDS ORDERED: PERCOCET 5/325 PO ONE (23:09)
[2018-07-22] MEDS ORDERED: PERCOCET 5/325 ONE (23:13)
[2018-07-23] MEDS ORDERED: NITRO-BID 2% TP ONE (02:50)
[2018-07-23] MEDS: DUONEB *Not for PRN Use IH SCH ×4 (03:57→21:51)
[2018-07-23] MEDS ORDERED: DUONEB *Not for PRN Use IH ONE (03:59)
[2018-07-23 04:25] LABS: Basophils # (Auto) 0.1 K/mm3 (0.0-0.1); Basophils % (Auto) 0.5 % (0.0-1.8); Eosinophils # (Auto) 0.3 K/mm3 (0.0-0.4); Eosinophils % (Auto) 1.6 % (0.0-4.3); Hematocrit 43.9 % (35.5-45.6); Hemoglobin 14.5 gm/dl (11.8-15.2); Lymphocytes # (Auto) 3.4 K/mm3 (1.2-5.4); Lymphocytes % (Auto) 21.4 % (13.4-35.0); Mean Corpuscular HGB Conc 33 % (32-34); Mean Corpuscular Volume 88 fl (84-94); Monocytes # (Auto) 1.9 K/mm3 (0.0-0.8); Monocytes % (Auto) 11.7 % (0.0-7.3); Platelet Count 351 K/mm3 (140-440); Red Cell Distribution Width 14.8 % (13.2-15.2)
[2018-07-23 04:45] LABS: Creatine Kinase MB 4.9 ng/mL (0.0-4.0)
[2018-07-23 04:47] LABS: Calcium 9.2 mg/dL (8.4-10.2)
[2018-07-23] MEDS ORDERED: LOVENOX SUB-Q SCH (10:00)
[2018-07-23] MEDS: TYLENOL PO PRN ×2 (10:18→21:17)
[2018-07-23] MEDS: SODIUM CHLORIDE FLUSH SYRINGE 10 ML IV SCH ×2 (10:18→21:28)
--- NOTE | 2018-07-23 10:42 | Consultation ---
History of Present Illness - Reason for Consult acute renal failure - History of Present Illness This is a very pleasant 53-year-old -[place] male, morbidly obese, with a past medical history significant for hypertension, coronary artery disease, previous history of congestive heart failure who presented to the emergency room department secondary to worsening chest pain. Nephrology was consulted secondary to acute kidney injury which seemed to have occurred during his initial admission. He has gross hematuria noted from his Boswell catheter. Per patient he is not aware of any previous acute kidney injury. He is on chronic antihypertensive therapy and remembers that he is on amlodipine 10 mg daily. He doesn't remember if he is on any other blood pressure medications. He is also been complaining of nausea along with shortness of breath associated with the aforementioned chest pain for the past 2-3 days. He reports decreased oral intake and hydration. He also states that he's had increased urinary urgency and frequency. This is also associated with discomfort with urination. He denies any fevers or chills. He admits to taking chronic ibuprofen up to 3-4 tablets daily secondary to chronic left hip pain and back pain. He does have pressure ulcers in his back and thighs. Past History Past Medical History: arthritis, CAD, hypertension, hyperlipidemia Past Surgical History: cholecystectomy Social history: no significant social history, other ([facility]) Family history: hypertension Medications and Allergies Allergies Allergy/AdvReac Type Severity Reaction Status Date / Time No Known Allergies Allergy Verified 05/26/16 12:55 Home Medications Medication Instructions Recorded Confirmed Last Taken Type ARIPiprazole [Abilify TAB] 5 mg PO QAM 09/03/17 07/23/18 07/22/18 History traZODone [Desyrel] 150 mg PO QHS 09/03/17 07/23/18 07/22/18 History AtorvaSTATin [Lipitor] 40 mg PO QHS 06/03/18 07/23/18 07/22/18 History FLUoxetine HCL [PROzac] 40 mg PO QDAY 06/03/18 07/23/18 07/22/18 History FLUoxetine [PROzac] 20 mg PO QDAY 06/03/18 07/23/18 07/22/18 History Furosemide [Lasix] 20 mg PO QAM 06/03/18 07/23/18 07/22/18 History Lisinopril [Zestril TAB] 10 mg PO QDAY 06/03/18 07/23/18 07/22/18 History NIFEdipine XL [Procardia Xl] 90 mg PO QDAY 06/03/18 07/23/18 07/22/18 History Pantoprazole [Protonix TAB] 40 mg PO QDAY 06/03/18 07/23/18 07/22/18 History ARIPiprazole [Abilify TAB] 5 mg PO QAM tablet 06/04/18 07/23/18 07/22/18 Rx AtorvaSTATin [Lipitor] 40 mg PO QHS tablet 06/04/18 07/23/18 07/22/18 Rx Furosemide [Lasix TAB] 20 mg PO QAM tablet 06/04/18 07/23/18 07/22/18 Rx Lisinopril [Zestril TAB] 10 mg PO QDAY tablet 06/04/18 07/23/18 07/22/18 Rx oxyCODONE /ACETAMINOPHEN [Percocet 1 tab PO Q6H PRN #12 tablet 06/04/18 07/23/18 07/22/18 Rx 5/325 mg] Active Meds: Active Medications Acetaminophen (Tylenol) 650 mg PO Q4H PRN PRN Reason: Pain MILD(1-3)/Fever >100.5/BYNUM Last Admin: 07/23/18 10:18 Dose: 650 mg Documented by: Albuterol/Ipratropium (Duoneb *Not For Prn Use*) 1 ampul IH Q6HRT [facility] Last Admin: 07/23/18 08:14 Dose: Not Given Documented by: Ceftriaxone Sodium (Rocephin/Ns 1 Gm/50 Ml) 1 gm in 50 mls @ 100 mls/hr IV Q24HR [facility]; Protocol Ondansetron HCl (Zofran) 4 mg IV Q8H PRN PRN Reason: Nausea And Vomiting Sodium Chloride (Sodium Chloride Flush Syringe 10 Ml) 10 ml IV BID [facility] Last Admin: 07/23/18 10:18 Dose: 10 ml Documented by: Sodium Chloride (Sodium Chloride Flush Syringe 10 Ml) 10 ml IV PRN PRN PRN Reason: LINE FLUSH Review of Systems All systems: negative Constitutional: poor appetite, chronic pain Cardiovascular: chest pain, dyspnea on exertion Genitourinary Male: dysuria, incontinence Psychiatric: anxiety Exam - Vital Signs Vital signs: Vital Signs Pulse Resp 114 H 13 07/22/18 17:26 07/22/18 17:26 - General Appearance General appearance: appears stated age, obese EENT: ATNC, PERRL Neck: Present: neck supple, trachea midline Respiratory: Clear to Ascultation Heart: regular, S1S2 Gastrointestinal: Present: normal, normoactive bowel sounds Integumentary: rash, skin tear Neurologic: no focal deficit, no asterixis, alert and oriented x3 Psychiatric: mood/affect appropriate, depressed, cooperative Results - Lab Results 07/23/18 03:56 07/23/18 03:56 Most recent lab results Calcium 9.2 mg/dL (8.4-10.2) 07/23/18 03:56 - Image Kidney/bladder ultrasound: pending Assessment and Plan - Patient Problems (1) Acute kidney injury Current Visit: Yes Status: Acute Plan to address problem: Acute kidney injury, likely prerenal vs ATN in the setting of urinary tract infection, decreased by mouth intake, and chronic NSAID use. He may have evidence of acute tubular necrosis. The catheter in place for accurate monitoring of intake and urine output. Ultrasound pending at this time. Will start patient on gentle IV fluids with normal saline at 75 mL an hour. Avoid nephrotoxins. Counseled patient importance of avoiding chronic NSAIDs. We will monitor renal function daily. We'll add urine electrolyte studies. Urinalysis reviewed. (2) Hypertension Current Visit: No Status: Chronic Qualifiers: Hypertension type: essential hypertension Qualified Code(s): I10 - Essential (primary) hypertension Plan to address problem: We'll monitor blood pressures. He has been slightly hypotensive during his initial admission which may also contribute to his acute kidney injury. D iscussed with the primary attending that he should initially hold off on blood pressure medications and restart at lower doses once pressures stabilize. Need to avoid hypotension in this early phase of acute kidney injury. (3) Chest pain Current Visit: Yes Status: Acute Plan to address problem: Pending cardiology evaluation. Serial troponins noted. We'll continue to monitor closely. Further recommendations per cardiology. (4) UTI (urinary tract infection) Current Visit: Yes Status: Acute Plan to address problem: Antibiotics to be dosed per decreased renal clearance (5) Suicidal ideation Current Visit: Yes Status: Acute Plan to address problem: 1013 initiated and sitters at bedside. Awaiting further psychiatry evaluation. (6) Morbid obesity Current Visit: No Status: Chronic Plan to address problem: Counseled patient on importance of weight loss and dietary intervention.
[2018-07-23] MEDS: ROCEPHIN/NS 1 GM/50 ML 1 GM/50 ML BAG IV SCH (11:53)
[2018-07-23] MEDS: NACL 0.9% 1000 ML 1,000 ML IV SCH ×2 (11:53→21:27)
--- NOTE | 2018-07-23 12:26 | Consultation ---
History of Present Illness Consult date: 07/23/18 Consult reason: chest pain History of present illness: The patient claims that he presented to the emergency department because he was developing sores over his buttock area and thighs. He also feels depressed. According to the ER notes, he had described suicidal ideation. While waiting in the ER, he claims that he developed chest pain which he describes as a cramp- like sensation. He had some reproducible tenderness over his precordial chest area during examination. Notably, he had a negative stress test in January 2018. Past History Past Medical History: arthritis, hypertension Past Surgical History: cholecystectomy Social history: other (Cocaine use). denies: smoking, alcohol abuse Family history: denies: CAD Medications and Allergies Allergies Allergy/AdvReac Type Severity Reaction Status Date / Time No Known Allergies Allergy Verified 05/26/16 12:55 Home Medications Medication Instructions Recorded Confirmed Last Taken Type ARIPiprazole [Abilify TAB] 5 mg PO QAM 09/03/17 07/23/18 07/22/18 History traZODone [Desyrel] 150 mg PO QHS 09/03/17 07/23/18 07/22/18 History AtorvaSTATin [Lipitor] 40 mg PO QHS 06/03/18 07/23/18 07/22/18 History FLUoxetine HCL [PROzac] 40 mg PO QDAY 06/03/18 07/23/18 07/22/18 History FLUoxetine [PROzac] 20 mg PO QDAY 06/03/18 07/23/18 07/22/18 History Furosemide [Lasix] 20 mg PO QAM 06/03/18 07/23/18 07/22/18 History Lisinopril [Zestril TAB] 10 mg PO QDAY 06/03/18 07/23/18 07/22/18 History NIFEdipine XL [Procardia Xl] 90 mg PO QDAY 06/03/18 07/23/18 07/22/18 History Pantoprazole [Protonix TAB] 40 mg PO QDAY 06/03/18 07/23/18 07/22/18 History ARIPiprazole [Abilify TAB] 5 mg PO QAM tablet 06/04/18 07/23/18 07/22/18 Rx AtorvaSTATin [Lipitor] 40 mg PO QHS tablet 06/04/18 07/23/18 07/22/18 Rx Furosemide [Lasix TAB] 20 mg PO QAM tablet 06/04/18 07/23/18 07/22/18 Rx Lisinopril [Zestril TAB] 10 mg PO QDAY tablet 06/04/18 07/23/18 07/22/18 Rx oxyCODONE /ACETAMINOPHEN [Percocet 1 tab PO Q6H PRN #12 tablet 06/04/18 07/23/18 07/22/18 Rx 5/325 mg] Active Meds: Active Medications Acetaminophen (Tylenol) 650 mg PO Q4H PRN PRN Reason: Pain MILD(1-3)/Fever >100.5/BYNUM Last Admin: 07/23/18 10:18 Dose: 650 mg Documented by: Albuterol/Ipratropium (Duoneb *Not For Prn Use*) 1 ampul IH Q6HRT [facility] Last Admin: 07/23/18 08:14 Dose: Not Given Documented by: Ceftriaxone Sodium (Rocephin/Ns 1 Gm/50 Ml) 1 gm in 50 mls @ 100 mls/hr IV Q24HR [facility]; Protocol Last Admin: 07/23/18 11:53 Dose: 100 mls/hr Documented by: Sodium Chloride (Nacl 0.9% 1000 Ml) 1,000 mls @ 100 mls/hr IV DIRECT [facility] Last Admin: 07/23/18 11:53 Dose: 100 mls/hr Documented by: Ondansetron HCl (Zofran) 4 mg IV Q8H PRN PRN Reason: Nausea And Vomiting Sodium Chloride (Sodium Chloride Flush Syringe 10 Ml) 10 ml IV BID [facility] Last Admin: 07/23/18 10:18 Dose: 10 ml Documented by: Sodium Chloride (Sodium Chloride Flush Syringe 10 Ml) 10 ml IV PRN PRN PRN Reason: LINE FLUSH Review of Systems Constitutional: no fever, no chills Ears, nose, mouth and throat: no ear pain, no ear discharge, no sore throat Cardiovascular: chest pain, no lightheadedness, no shortness of breath Respiratory: no cough, no hemoptysis, no shortness of breath Gastrointestinal: no abdominal pain, no nausea, no vomiting, no diarrhea, no constipation Genitourinary Male: incontinence, no dysuria, no urinary hesitancy Rectal: incontinence Musculoskeletal: no neck stiffness, no neck pain Integumentary: rash Neurological: no weakness, no parathesias, no headaches Psychiatric: depression Endocrine: no cold intolerance, no heat intolerance Hematologic/Lymphatic: no easy bruising, no easy bleeding Allergic/Immunologic: no urticaria, no wheezing Physical Examination Vital Signs Last Vital Signs Temp 98.4 F 07/23/18 11:39 Pulse 63 07/23/18 11:39 Resp 20 07/23/18 11:39 BP 116/79 07/23/18 11:39 Pulse Ox 94 07/23/18 11:39 General appearance: no acute distress HEENT: Positive: EOMI, Normocephaly, Mucus Membranes Moist Neck: Positive: neck supple, trachea midline Cardiac: Positive: Reg Rate and Rhythm, S1/S2 Lungs: Positive: clear to auscultation Neuro: Positive: Grossly Intact Abdomen: Positive: Soft, Active Bowel Sounds. Negative: Tender Musculoskeletal: Normal Range of Motion, other (reproducible tenderness over the precordial chest area.) Extremities: Present: normal. Absent: edema Results 07/23/18 03:56 07/23/18 03:56 Cardiac Enzymes 07/22/18 07/22/18 07/23/18 Range/Units 18:51 21:55 03:56 CK-MB (CK-2) 4.1 H 4.2 H 4.9 H (0.0-4.0) ng/mL CBC 07/22/18 07/23/18 Range/Units 18:51 03:56 WBC 13.8 H 16.1 H (4.5-11.0) K/mm3 RBC 4.88 5.00 (3.65-5.03) M/mm3 Hgb 14.6 14.5 (11.8-15.2) gm/dl Hct 42.5 43.9 (35.5-45.6) % Plt Count 322 351 (140-440) K/mm3 Lymph # 2.7 3.4 (1.2-5.4) K/mm3 Bailey # 1.5 H 1.9 H (0.0-0.8) K/mm3 Eos # 0.3 0.3 (0.0-0.4) K/mm3 Baso # 0.1 0.1 (0.0-0.1) K/mm3 Comprehensive Metabolic Panel 07/22/18 07/23/18 Range/Units 18:51 03:56 Sodium 142 141 (137-145) mmol/L Potassium 3.6 3.4 L (3.6-5.0) mmol/L Chloride 102.4 100.0 (98-107) mmol/L Carbon Dioxide 30 25 (22-30) mmol/L BUN 19 23 H (9-20) mg/dL Creatinine 0.9 2.0 H D (0.8-1.5) mg/dL Glucose 87 135 H (75-100) mg/dL Calcium 8.8 9.2 (8.4-10.2) mg/dL - Imaging and Cardiology EKG: image reviewed EKG interpretations - Telemetry EKG Rhythm: Sinus Tachycardia - EKG Sinus rhythms and dysrhythmias: sinus tachycardia Chamber hypertrophy or enlargement: left ventricular hypertro Repolarization changes or abnormalities: repolarization abn secondary to ventricular hypertrophy Assessment and Plan His current episode of chest pain appears to be musculoskeletal in origin. His cardiac status appears stable. - Patient Problems (1) Atypical chest pain Current Visit: Yes Status: Acute (2) Acute kidney injury Current Visit: Yes Status: Acute (3) UTI (urinary tract infection) Current Visit: Yes Status: Acute (4) Hypertension Current Visit: No Status: Chronic Qualifiers: Hypertension type: essential hypertension Qualified Code(s): I10 - Essential (primary) hypertension (5) Cocaine abuse Current Visit: Yes Status: Acute (6) Depression Current Visit: Yes Status: Acute Qualifiers: Depression Type: unspecified Qualified Code(s): F32.9 - Major depressive disorder, single episode, unspecified (7) Morbid obesity Current Visit: Yes Status: Chronic
[2018-07-23 14:52] LABS: Chloride, Urine 11.2 mmolL (110-250); Creatinine,Urine 374.5 mg/dL (0.1-20.0)
--- NOTE | 2018-07-23 18:22 | Progress Note ---
Assessment and Plan Assessment and plan: Patient is a 53 yo man with a history of hypertension, CAD, CHF, Gout, chronic back pain, morbid obesity, depression and Schizophrenia who presented to [facility] ED with Chest pains, Suicidal Ideations and dysuria. He was placed under a 1013 psych hold. He admits to taking chronic ibuprofen up to 3-4 tablets daily secondary to chronic left hip pain and back pain. He does have pressure ulcers in his back and thighs. Initially Creatinine on admission was 0.9 and following day the Creatinine increased to 2.0. Nephrology consulted. -Chest pains: Cardiology consulted -UTI with sepsis, poa: treated with iv abx, follow cultures -ARF: ordered renal u/s, consulted and d/w Principal Ios Developer -Suicidal Ideation: consulted Mental Health -Abdominal pressure wound: Wound care consulted -Cocaine on UDS: supportative care and counseling done -Gross Hematuria possible related to UTI, await renal u/s before deciding on CT scan -Morbid obese, bmi 57.5: consult Senior Piping Designer History Interval history: Patient was seen and examined. Follow-up on current diagnosis of chest pains. Overnight uneventful. Patient denies any shortness breath, nausea/vomiting or severe headaches. Imaging, nursing note, chart, labs and old chart reviewed. Discussed with patient. He is under 1013 psych hold. Sitter at bedside. Hospitalist Physical - Physical exam Narrative exam: Gen: WDWN, NAD, Awake, Alert, Orientated, bmi 57.5 HEENT: NCAT, EOMI, PERRL, OP Clear Neck: supple, no adenopathy, no thyromegaly, no JVD CVS/Heart: RRR, normal S1S2, pulses present bilaterally Chest/Lungs: CTA B, Symmetrical chest expansion, good air entry bilaterally GI/Abdomen: soft, NTND, good bowel sounds, no guarding or rebound /Bladder: no suprapubic tenderness, no CVA or paraspinal tenderness Extermity/Skin: rash under pannus, multiple back, thigh pressure ulcer varying stages MSK: FROM x 4 Neuro: CN 2-12 grossly intact, no new focal deficits Psych: calm, poor insight - Constitutional Vitals: Temp Pulse Resp BP Pulse Ox 98.4 F 108 H 20 116/79 94 07/23/18 11:39 07/23/18 15:23 07/23/18 15:23 07/23/18 11:39 07/23/18 11:39 General appearance: Present: no acute distress Results - Labs CBC & Chem 7: 07/23/18 03:56 07/23/18 03:56 Labs: Laboratory Last Values WBC 16.1 K/mm3 (4.5-11.0) H 07/23/18 03:56 RBC 5.00 M/mm3 (3.65-5.03) 07/23/18 03:56 Hgb 14.5 gm/dl (11.8-15.2) 07/23/18 03:56 Hct 43.9 % (35.5-45.6) 07/23/18 03:56 MCV 88 fl (84-94) 07/23/18 03:56 MCH 29 pg (28-32) 07/23/18 03:56 MCHC 33 % (32-34) 07/23/18 03:56 RDW 14.8 % (13.2-15.2) 07/23/18 03:56 Plt Count 351 K/mm3 (140-440) 07/23/18 03:56 Lymph % (Auto) 21.4 % (13.4-35.0) 07/23/18 03:56 Faulk % (Auto) 11.7 % (0.0-7.3) H 07/23/18 03:56 Eos % (Auto) 1.6 % (0.0-4.3) 07/23/18 03:56 Baso % (Auto) 0.5 % (0.0-1.8) 07/23/18 03:56 Lymph # 3.4 K/mm3 (1.2-5.4) 07/23/18 03:56 Faulk # 1.9 K/mm3 (0.0-0.8) H 07/23/18 03:56 Eos # 0.3 K/mm3 (0.0-0.4) 07/23/18 03:56 Baso # 0.1 K/mm3 (0.0-0.1) 07/23/18 03:56 Seg Neutrophils % 64.8 % (40.0-70.0) 07/23/18 03:56 Seg Neutrophils # 10.4 K/mm3 (1.8-7.7) H 07/23/18 03:56 Sodium 141 mmol/L (137-145) 07/23/18 03:56 Potassium 3.4 mmol/L (3.6-5.0) L 07/23/18 03:56 Chloride 100.0 mmol/L (98-107) 07/23/18 03:56 Carbon Dioxide 25 mmol/L (22-30) 07/23/18 03:56 Anion Gap 19 mmol/L 07/23/18 03:56 BUN 23 mg/dL (9-20) H 07/23/18 03:56 Creatinine 2.0 mg/dL (0.8-1.5) H D 07/23/18 03:56 Estimated GFR 42 ml/min 07/23/18 03:56 BUN/Creatinine Ratio 12 % 07/23/18 03:56 Glucose 135 mg/dL (75-100) H 07/23/18 03:56 Calcium 9.2 mg/dL (8.4-10.2) 07/23/18 03:56 Total Creatine Kinase 228 units/L (55-170) H 07/23/18 03:56 CK-MB (CK-2) 4.9 ng/mL (0.0-4.0) H 07/23/18 03:56 CK-MB (CK-2) Rel Index 2.1 (0-4) 07/23/18 03:56 Troponin T 0.023 ng/mL (0.00-0.029) 07/23/18 03:56 Urine Color Vanessa (Yellow) 07/22/18 18:50 Urine Turbidity Cloudy (Clear) 07/22/18 18:50 Urine pH 7.0 (5.0-7.0) 07/22/18 18:50 Ur Specific Matthews 1.019 (1.003-1.030) 07/22/18 18:50 Urine Protein 100 mg/dl mg/dL (Negative) 07/22/18 18:50 Urine Glucose (UA) Neg mg/dL (Negative) 07/22/18 18:50 Urine Ketones Neg mg/dL (Negative) 07/22/18 18:50 Urine Blood Mod (Negative) 07/22/18 18:50 Urine Nitrite Neg (Negative) 07/22/18 18:50 Urine Bilirubin Neg (Negative) 07/22/18 18:50 Urine Urobilinogen 2.0 mg/dL (<2.0) 07/22/18 18:50 Ur Leukocyte Esterase Lg (Negative) 07/22/18 18:50 Urine WBC (Auto) > 182.0 /HPF (0.0-6.0) H 07/22/18 18:50 Urine RBC (Auto) 17.0 /HPF (0.0-6.0) 07/22/18 18:50 U Epithel Cells (Auto) 2.0 /HPF (0-13.0) 07/22/18 18:50 WBC Casts 18 /LPF 07/22/18 18:50 Urine Mucus 2+ /HPF 07/22/18 18:50 Urine Creatinine 374.5 mg/dL (0.1-20.0) H 07/23/18 11:30 Urine Sodium 15 mmol/L 07/23/18 11:30 Urine Potassium 88.52 mmol/L 07/23/18 11:30 Urine Chloride 11.2 mmolL (110-250) L 07/23/18 11:30 Salicylates < 0.3 mg/dL (2.8-20.0) L 07/22/18 18:51 Urine Opiates Screen Presumptive negative 07/22/18 18:50 Urine Methadone Screen Presumptive negative 07/22/18 18:50 Acetaminophen < 5.0 ug/mL (10.0-30.0) L 07/22/18 18:51 Ur Barbiturates Screen Presumptive negative 07/22/18 18:50 Ur Phencyclidine Scrn Presumptive negative 07/22/18 18:50 Ur Amphetamines Screen Presumptive negative 07/22/18 18:50 U Benzodiazepines Scrn Presumptive negative 07/22/18 18:50 Urine Cocaine Screen Presumptive positive 07/22/18 18:50 U Marijuana (THC) Screen Presumptive negative 07/22/18 18:50 Drugs of Abuse Note Disclamer 07/22/18 18:50 Plasma/Serum Alcohol < 0.01 % (0-0.07) 07/22/18 18:51
--- NOTE | 2018-07-23 18:27 | Consultation ---
History of Present Illness - Reason for Consult Consult date: 07/23/18 Reason for consult: Initial Psychiatric Evaluation - Chief Complaint Chief complaint: " suicidal thoughts" - History of Present Psychiatric Illness Patient is a 53 year old male who presents to the emergency room with chest pain and suicidal ideations without plan. Patient is known to provider. Today the patient is calm and cooperative during the assessment. He has a PPHx of schizophrenia and major depressive disorder. Patient has been noncompliant with psychiatric medications x 2 weeks . He states, " I haven't taken medication in 2 weeks. I can't remember all my medication. I take Haldol, Geodon, and Trazodone." He endorses command auditory hallucinations telling him to harm himself. He denies delusions, homicidal ideations, and visual hallucinations. He reports decrease sleep, decrease energy, and good appetite. Current Psychiatric Medications: Trazodone 150mg po QHS, Prozac 40mg po QAM, Haldol/Geodon- dose unknown. Past Psychiatric History: Schizophrenia ( 20 years ago) MDD ( 20 years ago); More than 20 previous inpatient psychiatric hospitalizations; No outpatient p sychiatrist; 2 previous suicide attempts ( overdosing, cutting) Past psychiatric Medication Trials: " I can't remember" Trauma/Abuse History: Patient denies sexual, physical, and mental abuse. Drug/Alcohol Abuse History: " Crack" - sober for 4 months, relapsed 3 days ago, last use- 07/20/18, first use- 25 years ago. Social History: 11th grade- highest level of education; $1,064- Social Security Disability; good support system- [employer] and sister; no children; single. Family History of Psychiatric Illness and Substance Abuse: Patient denies Medications and Allergies Allergies Allergy/AdvReac Type Severity Reaction Status Date / Time No Known Allergies Allergy Verified 05/26/16 12:55 Home Medications Medication Instructions Recorded Confirmed Last Taken Type ARIPiprazole [Abilify TAB] 5 mg PO QAM 09/03/17 07/23/18 07/22/18 History traZODone [Desyrel] 150 mg PO QHS 09/03/17 07/23/18 07/22/18 History AtorvaSTATin [Lipitor] 40 mg PO QHS 06/03/18 07/23/18 07/22/18 History FLUoxetine HCL [PROzac] 40 mg PO QDAY 06/03/18 07/23/18 07/22/18 History FLUoxetine [PROzac] 20 mg PO QDAY 06/03/18 07/23/18 07/22/18 History Furosemide [Lasix] 20 mg PO QAM 06/03/18 07/23/18 07/22/18 History Lisinopril [Zestril TAB] 10 mg PO QDAY 06/03/18 07/23/18 07/22/18 History NIFEdipine XL [Procardia Xl] 90 mg PO QDAY 06/03/18 07/23/18 07/22/18 History Pantoprazole [Protonix TAB] 40 mg PO QDAY 06/03/18 07/23/18 07/22/18 History ARIPiprazole [Abilify TAB] 5 mg PO QAM tablet 06/04/18 07/23/18 07/22/18 Rx AtorvaSTATin [Lipitor] 40 mg PO QHS tablet 06/04/18 07/23/18 07/22/18 Rx Furosemide [Lasix TAB] 20 mg PO QAM tablet 06/04/18 07/23/18 07/22/18 Rx Lisinopril [Zestril TAB] 10 mg PO QDAY tablet 06/04/18 07/23/18 07/22/18 Rx oxyCODONE /ACETAMINOPHEN [Percocet 1 tab PO Q6H PRN #12 tablet 06/04/18 07/23/18 07/22/18 Rx 5/325 mg] Active Meds: Active Medications Acetaminophen (Tylenol) 650 mg PO Q4H PRN PRN Reason: Pain MILD(1-3)/Fever >100.5/BYNUM Last Admin: 07/23/18 10:18 Dose: 650 mg Documented by: Albuterol/Ipratropium (Duoneb *Not For Prn Use*) 1 ampul IH Q6HRT [facility] Last Admin: 07/23/18 15:13 Dose: 1 ampul Documented by: Ceftriaxone Sodium (Rocephin/Ns 1 Gm/50 Ml) 1 gm in 50 mls @ 100 mls/hr IV Q24HR LEV; Protocol Last Admin: 07/23/18 11:53 Dose: 100 mls/hr Documented by: Sodium Chloride (Nacl 0.9% 1000 Ml) 1,000 mls @ 100 mls/hr IV DIRECT [facility] Last Admin: 07/23/18 11:53 Dose: 100 mls/hr Documented by: Ondansetron HCl (Zofran) 4 mg IV Q8H PRN PRN Reason: Nausea And Vomiting Sodium Chloride (Sodium Chloride Flush Syringe 10 Ml) 10 ml IV BID [facility] Last Admin: 07/23/18 10:18 Dose: 10 ml Documented by: Sodium Chloride (Sodium Chloride Flush Syringe 10 Ml) 10 ml IV PRN PRN PRN Reason: LINE FLUSH Mental Status Exam - Vital signs Last Vital Signs Temp 98.4 F 07/23/18 11:39 Pulse 108 H 07/23/18 15:23 Resp 20 07/23/18 15:23 BP 116/79 07/23/18 11:39 Pulse Ox 94 07/23/18 11:39 - Exam Narrative exam: Mental Status Exam Appearance: calm Behavior: regular eye contact Speech: regular rate and tone Mood: " so so " Affect: constricted Thought Process: circumstantial Thought Content: denies HI's, VH's, and delusions. Endorses SI's and AH's telling me to harm myself Motor Activity: sitting in chair Cognition: A/O x3 Insight: variable Judgment: poor Results Result Diagrams: 07/23/18 03:56 07/23/18 03:56 Abnormal lab results 07/22/18 07/22/18 07/22/18 Range/Units 18:50 18:51 18:51 WBC 13.8 H (4.5-11.0) K/mm3 RDW 15.3 H (13.2-15.2) % [place] % (Auto) 10.7 H (0.0-7.3) % [place] # 1.5 H (0.0-0.8) K/mm3 Seg Neutrophils # 9.2 H (1.8-7.7) K/mm3 Potassium (3.6-5.0) mmol/L BUN (9-20) mg/dL Creatinine (0.8-1.5) mg/dL Glucose (75-100) mg/dL Total Creatine Kinase (55-170) units/L CK-MB (CK-2) (0.0-4.0) ng/mL Urine WBC (Auto) > 182.0 H (0.0-6.0) /HPF Urine Creatinine (0.1-20.0) mg/dL Urine Chloride (110-250) mmolL Salicylates < 0.3 L (2.8-20.0) mg/dL Acetaminophen (10.0-30.0) ug/mL 07/22/18 07/22/18 07/22/18 Range/Units 18:51 18:51 21:55 WBC (4.5-11.0) K/mm3 RDW (13.2-15.2) % [place] % (Auto) (0.0-7.3) % [place] # (0.0-0.8) K/mm3 Seg Neutrophils # (1.8-7.7) K/mm3 Potassium (3.6-5.0) mmol/L BUN (9-20) mg/dL Creatinine (0.8-1.5) mg/dL Glucose (75-100) mg/dL Total Creatine Kinase (55-170) units/L CK-MB (CK-2) 4.1 H 4.2 H (0.0-4.0) ng/mL Urine WBC (Auto) (0.0-6.0) /HPF Urine Creatinine (0.1-20.0) mg/dL Urine Chloride (110-250) mmolL Salicylates (2.8-20.0) mg/dL Acetaminophen < 5.0 L (10.0-30.0) ug/mL 07/23/18 07/23/18 07/23/18 Range/Units 03:56 03:56 03:56 WBC 16.1 H (4.5-11.0) K/mm3 RDW (13.2-15.2) % [place] % (Auto) 11.7 H (0.0-7.3) % [place] # 1.9 H (0.0-0.8) K/mm3 Seg Neutrophils # 10.4 H (1.8-7.7) K/mm3 Potassium 3.4 L (3.6-5.0) mmol/L BUN 23 H (9-20) mg/dL Creatinine 2.0 H D (0.8-1.5) mg/dL Glucose 135 H (75-100) mg/dL Total Creatine Kinase 228 H (55-170) units/L CK-MB (CK-2) 4.9 H (0.0-4.0) ng/mL Urine WBC (Auto) (0.0-6.0) /HPF Urine Creatinine (0.1-20.0) mg/dL Urine Chloride (110-250) mmolL Salicylates (2.8-20.0) mg/dL Acetaminophen (10.0-30.0) ug/mL 07/23/18 Range/Units 11:30 WBC (4.5-11.0) K/mm3 RDW (13.2-15.2) % [place] % (Auto) (0.0-7.3) % [place] # (0.0-0.8) K/mm3 Seg Neutrophils # (1.8-7.7) K/mm3 Potassium (3.6-5.0) mmol/L BUN (9-20) mg/dL Creatinine (0.8-1.5) mg/dL Glucose (75-100) mg/dL Total Creatine Kinase (55-170) units/L CK-MB (CK-2) (0.0-4.0) ng/mL Urine WBC (Auto) (0.0-6.0) /HPF Urine Creatinine 374.5 H (0.1-20.0) mg/dL Urine Chloride 11.2 L (110-250) mmolL Salicylates (2.8-20.0) mg/dL Acetaminophen (10.0-30.0) ug/mL All other labs normal. Assessment and Plan Assessment and plan: Impression: PPHx Schizophrenia and MDD. Today the patent is calm and cooperative during the assessment. The patient endorses SI's and CAH's . Patient denies delusions. DDx: Schizoaffective Disoder, Bipolar Type Recommendation/Plan: 1. Continue 1013. 2. Start Abilify 5mg po QHS mood/psychosis. Discussed possible metabolic side effects. Continue Trazodone 100mg po QHS insomnia. Discussed possible side effects. Patient verbalizes full understanding. 3. Will continue to monitor psychosis, mood, sleep, appetite compliance, and side effects. Disposition: The patient was referred to inpatient psychiatric services. Will staff with Dr. Margarita Trujillo.
[2018-07-23] MEDS: DESYREL PO PRN (21:17)
[2018-07-23] MEDS: ABILIFY PO SCH (21:18)
--- NOTE | 2018-07-23 23:16 | Ultrasound Report ---
FINAL REPORT PROCEDURE: US RENAL BILAT TECHNIQUE: Real-time sonography in multiple planes of the kidneys, ureters and urinary bladder was p erformed with image documentation. CPT 40969 HISTORY: ARF COMPARISON: No prior studies are available for comparison. FINDINGS: Limited study due to patient's body habitus. RIGHT kidney: Normal echotexture. No focal renal mass, calculus, or hydronephrosis. Length: 13 x 4 x 5 cm. LEFT kidney: There is a suboptimally visualized a cystic lesion measuring 1.6 centimeters involving t he midpole. There are no calculi or hydronephrosis. Length: 12 x 6 x 6cm. Bladder: Empty. IMPRESSION: Limited study due to patient's body habitus A suboptimally visualized cyst is noted in the lower pole left kidney measuring 1.6 centimeters. Comp arison with any prior studies would be of help. Otherwise a CT abdomen pre and post contrast may be r ecommended..
[2018-07-24] MEDS: DUONEB *Not for PRN Use IH SCH ×4 (02:47→22:12)
--- NOTE | 2018-07-24 08:07 | Progress Note ---
Assessment and Plan - Patient Problems (1) Acute kidney injury Current Visit: Yes Status: Acute Plan to address problem: Acute kidney injury, likely prerenal vs ATN in the setting of urinary tract infection, decreased by mouth intake, and chronic NSAID use. He may have evidence of acute tubular necrosis. The catheter in place for accurate monitoring of intake and urine output. Ultrasound pending at this time. patient Continues on gentle IV fluids with normal saline at 100 mL an hour. Avoid nephrotoxins. Counseled patient importance of avoiding chronic NSAIDs. We will monitor renal function daily. Urinalysis reviewed. Urine culture indica ting gram (-) jv. No new labs this am, BMP ordered and will follow up. (2) Hypertension Current Visit: No Status: Chronic Qualifiers: Hypertension type: essential hypertension Qualified Code(s): I10 - Essential (primary) hypertension Plan to address problem: We'll monitor blood pressures. He had been slightly hypotensive during his initial admission which may also contribute to his acute kidney injury. Discussed with the primary attending that he should initially hold off on blood pressure medications and restart at lower doses once pressures stabilize. Need to avoid hypotension in this early phase of acute kidney injury. Would recommend restarting his amlodipine at a lower dose of 2.5 mg. (3) Chest pain Current Visit: Yes Status: Acute Plan to address problem: cardiology evaluation noted. Serial troponins noted. Per cardiology, chest pain likely musculoskeletal in origin. (4) UTI (urinary tract infection) Current Visit: Yes Status: Acute Plan to address problem: Antibiotics to be dosed per decreased renal clearance (5) Suicidal ideation Current Visit: Yes Status: Acute Plan to address problem: 1013 initiated and sitters at bedside. Psychiatry evaluation noted, (6) Morbid obesity Current Visit: Yes Status: Chronic Plan to address problem: Counseled patient on importance of weight loss and dietary intervention. Subjective Date of service: 07/24/18 Interval history: No acute issues. Urine culture initially growing gram (-) jv. on Rocephin. No labs this am, so will order BMP for assessment of renal function. Urine is clearing up and he is on NS@ 100cc/hr. Objective - Vital Signs Vital signs: Vital Signs - 12hr 07/23/18 07/23/18 07/23/18 20:19 21:51 21:52 Temperature Pulse Rate 97 H Pulse Rate [ 89 Anterior Bilateral Throughout] Respiratory Rate Respiratory 16 Rate [Anterior Bilateral Throughout] Blood Pressure O2 Sat by Pulse 96 Oximetry 07/23/18 07/24/18 07/24/18 21:57 00:42 04:56 Temperature 97.5 F L 98.0 F Pulse Rate 88 82 Pulse Rate [ 91 H Anterior Bilateral Throughout] Respiratory 20 20 Rate Respiratory 16 Rate [Anterior Bilateral Throughout] Blood Pressure 131/91 142/93 O2 Sat by Pulse 95 94 Oximetry - General Appearance General appearance: well-developed, appears stated age, obese EENT: ATNC, PERRL Neck: no JVD, no thyromegaly Respiratory: Present: Clear to Ascultation Cardiology: regular, S1S2 Gastrointestinal: normal, normoactive bowel sounds Integumentary: decubiti, skin tear Neurologic: no focal deficit, no asterixis, CN 3-12 intact Musculoskeletal: other (-edema) Psychiatric: mood/affect appropriate, cooperative - Lab 07/23/18 03:56 07/23/18 03:56 Most recent lab results Calcium 9.2 mg/dL (8.4-10.2) 07/23/18 03:56 Urine Creatinine 374.5 mg/dL (0.1-20.0) H 07/23/18 11:30 Urine Sodium 15 mmol/L 07/23/18 11:30 - Imaging Kidney/bladder ultrasound: report reviewed - Allied health notes Allied health notes reviewed: nursing Medications & Allergies - Medications Allergies/Adverse Reactions: Allergies No Known Allergies Allergy (Verified 05/26/16 12:55) Home Medications: Home Medications Medication Instructions Recorded Confirmed Last Taken Type ARIPiprazole [Abilify TAB] 5 mg PO QAM 09/03/17 07/23/18 07/22/18 History traZODone [Desyrel] 150 mg PO QHS 09/03/17 07/23/18 07/22/18 History AtorvaSTATin [Lipitor] 40 mg PO QHS 06/03/18 07/23/18 07/22/18 History FLUoxetine HCL [PROzac] 40 mg PO QDAY 06/03/18 07/23/18 07/22/18 History FLUoxetine [PROzac] 20 mg PO QDAY 06/03/18 07/23/18 07/22/18 History Furosemide [Lasix] 20 mg PO QAM 06/03/18 07/23/18 07/22/18 History Lisinopril [Zestril TAB] 10 mg PO QDAY 06/03/18 07/23/18 07/22/18 History NIFEdipine XL [Procardia Xl] 90 mg PO QDAY 06/03/18 07/23/18 07/22/18 History Pantoprazole [Protonix TAB] 40 mg PO QDAY 06/03/18 07/23/18 07/22/18 History ARIPiprazole [Abilify TAB] 5 mg PO QAM tablet 06/04/18 07/23/18 07/22/18 Rx AtorvaSTATin [Lipitor] 40 mg PO QHS tablet 06/04/18 07/23/18 07/22/18 Rx Furosemide [Lasix TAB] 20 mg PO QAM tablet 06/04/18 07/23/18 07/22/18 Rx Lisinopril [Zestril TAB] 10 mg PO QDAY tablet 06/04/18 07/23/18 07/22/18 Rx oxyCODONE /ACETAMINOPHEN [Percocet 1 tab PO Q6H PRN #12 tablet 06/04/18 07/23/18 07/22/18 Rx 5/325 mg] Active Medications: Generic Name Dose Route Start Last Admin Trade Name Freq PRN Reason Stop Dose Admin Acetaminophen 650 mg 07/22/18 21:36 07/23/18 21:17 Tylenol PO 650 mg Q4H PRN Administration Pain MILD(1-3)/Fever >100.5/BYNUM Albuterol/Ipratropium 1 ampul 07/23/18 02:00 07/24/18 02:47 Duoneb *Not For Prn Use* IH Not Given Q6HRT LEV Aripiprazole 5 mg 07/23/18 22:00 07/23/18 21:18 Abilify PO 5 mg QHS LEV Administration Ceftriaxone Sodium 1 gm in 50 mls @ 100 mls/hr 07/23/18 10:00 07/23/18 11:53 Rocephin/Ns 1 Gm/50 Ml IV 100 mls/hr Q24HR LEV Administration Protocol Sodium Chloride 1,000 mls @ 100 mls/hr 07/23/18 11:00 07/23/18 21:27 Nacl 0.9% 1000 Ml IV 100 mls/hr DIRECT LEV Administration Ondansetron HCl 4 mg 07/22/18 21:36 Zofran IV Q8H PRN Nausea And Vomiting Sodium Chloride 10 ml 07/22/18 22:00 07/23/18 21:28 Sodium Chloride Flush Syringe 10 Ml IV 10 ml BID LEV Administration Sodium Chloride 10 ml 07/22/18 21:36 Sodium Chloride Flush Syringe 10 Ml IV PRN PRN LINE FLUSH Trazodone HCl 100 mg 07/23/18 20:19 07/23/18 21:17 Desyrel PO 100 mg QHS PRN Administration Insomnia
[2018-07-24] MEDS: ROCEPHIN/NS 1 GM/50 ML 1 GM/50 ML BAG IV SCH (10:32)
[2018-07-24] MEDS: NORVASC PO SCH (10:32)
[2018-07-24] MEDS: NACL 0.9% 1000 ML 1,000 ML IV SCH (10:33)
[2018-07-24] MEDS: SODIUM CHLORIDE FLUSH SYRINGE 10 ML IV SCH ×2 (10:33→22:02)
[2018-07-24 11:05] LABS: BUN/Creatinine Ratio 19; Blood Urea Nitrogen 23 mg/dL (9-20); Calcium 8.7 mg/dL (8.4-10.2); Hemolysis Index 24
--- NOTE | 2018-07-24 12:00 | Progress Note ---
Assessment and Plan His current episode of chest pain appears to be musculoskeletal in origin. His cardiac status appears stable. Will optimize anti-ischemic regimen - initiate oral nitrates. Pt may discharge home from cardiology standpoint. Recommend follow up in our office with Dr. Forrester within 1-2 weeks of hospital discharge ([phone]). The patient has been seen in conjunction with Dr. Forrester who agrees with the assessment and plan of care. - Patient Problems (1) Atypical chest pain Current Visit: Yes Status: Acute (2) Acute kidney injury Current Visit: Yes Status: Acute (3) UTI (urinary tract infection) Current Visit: Yes Status: Acute (4) Hypertension Current Visit: No Status: Chronic Qualifiers: Hypertension type: essential hypertension Qualified Code(s): I10 - Essential (primary) hypertension (5) Cocaine abuse Current Visit: Yes Status: Acute (6) Depression Current Visit: Yes Status: Acute Qualifiers: Depression Type: unspecified Qualified Code(s): F32.9 - Major depressive disorder, single episode, unspecified (7) Morbid obesity Current Visit: Yes Status: Chronic Subjective Date of service: 07/24/18 Principal diagnosis: cp Interval history: pt resting up in chair, no current complaints. Objective Last Vital Signs Temp 97.5 F L 07/24/18 08:17 Pulse 79 07/24/18 08:17 Resp 20 07/24/18 08:17 BP 152/98 07/24/18 08:17 Pulse Ox 87 07/24/18 08:17 - Physical Examination General: No Apparent Distress HEENT: Positive: EOMI, Normocephaly, Mucus Membranes Moist Neck: Positive: neck supple, trachea midline Cardiac: Positive: Reg Rate and Rhythm, S1/S2 Lungs: Positive: clear to auscultation Neuro: Positive: Grossly Intact Abdomen: Positive: Soft, Active Bowel Sounds. Negative: Tender Musculoskeletal: Normal Range of Motion, other (reproducible tenderness over the precordial chest area.) Extremities: Present: normal. Absent: edema - Labs and Meds Comprehensive Metabolic Panel 07/24/18 Range/Units 10:18 Sodium 140 (137-145) mmol/L Potassium 3.3 L (3.6-5.0) mmol/L Chloride 101.4 (98-107) mmol/L Carbon Dioxide 26 (22-30) mmol/L BUN 23 H (9-20) mg/dL Creatinine 1.2 (0.8-1.5) mg/dL Glucose 147 H (75-100) mg/dL Calcium 8.7 (8.4-10.2) mg/dL - Imaging and Cardiology EKG: image reviewed - EKG Sinus rhythms and dysrhythmias: sinus tachycardia Chamber hypertrophy or enlargement: left ventricular hypertro Repolarization changes or abnormalities: repolarization abn secondary to ventricular hypertrophy - Allied health notes Allied health notes reviewed: nursing
[2018-07-24] MEDS: IMDUR PO SCH (14:31)
--- NOTE | 2018-07-24 14:50 | Progress Note ---
Subjective - Reason for Consult Consult date: 07/24/18 Reason for consult: Psychiatry Follow-up - Chief Complaint Chief complaint: "I feel better" 3 year old male who presents to the emergency room with chest pain and suicidal ideations without plan. This patient is known to me. Today the patient is calm and cooperative during the assessment. He stated that his SI's have "drastically" decreased. He stated that he is trying to handle the anniversary of his mother's in a safe manner. He stated that he will follow up with [facility] for outpatient psu services when discharged. He denies HI's and AVH's. He denies any side effects of his medications. He stated that he slept well last night. Mental Status Exam - Vital signs Last Vital Signs Temp 98.2 F 07/24/18 12:33 Pulse 87 07/24/18 13:56 Resp 18 07/24/18 13:56 BP 134/95 07/24/18 12:33 Pulse Ox 93 07/24/18 12:33 - Exam Narrative exam: MSE: Appearance: calm, cooperative Behavior: regular eye contact Speech: regular rate and tone Mood: "okay" Affect: congruent to mood Thought Process: linear Thought Content: denies HI's and AVH's Motor Activity: ambulatory Cognition: A/O x3 Insight: fair Judgment: variable Assessment and Plan Impression: Unspecified Mood DO with psy features. Substance Use DO (cocaine). Today the patent is calm and cooperative during the assessment. The patient is grieving the of his mother. DDx: Schizoaffective Disoder, Bipolar Type, R/O Substance Induced Psy/mood DO Recommendation/Plan: Reevaluet1 103 in 24 hours. Continue Abilify 5 mg PO HS for mood/psychosis and Trazodone 100 mg PO HS PRN for sleep. Discussed possible metabolic side effects of Abilify with the patient. Discussed possible suicidality/medication induced lizzy/priapism with the patient reference Trazodone. Dispo: If the patient's 1013 is rescinded, he can follow up with [facility] for outpatient psy services. Will staff with Dr Bridges.
--- NOTE | 2018-07-24 19:35 | Progress Note ---
Assessment and Plan Assessment and plan: Patient is a 53 yo man with a history of hypertension, CAD, CHF, Gout, chronic back pain, morbid obesity, depression and Schizophrenia who presented to [facility] ED with Chest pains, Suicidal Ideations and dysuria. He was placed under a 1013 psych hold. He admits to taking chronic ibuprofen up to 3-4 tablets daily secondary to chronic left hip pain and back pain. He does have pressure ulcers in his back and thighs. Initially Creatinine on admission was 0.9 and following day the Creatinine increased to 2.0. Nephrology consulted. 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 Follow-up on current diagnosis of chest pains. Overnight uneventful. Patient denies any shortness breath, nausea/vomiting or severe headaches. Imaging, nursing note, chart, labs and old chart reviewed. Discussed with patient. He is under 1013 psych hold. Sitter at bedside. Hospitalist Physical - Physical exam Narrative exam: Gen: WDWN, NAD, Awake, Alert, Orientated, bmi 57.5 HEENT: NCAT, EOMI, PERRL, OP Clear Neck: supple, no adenopathy, no thyromegaly, no JVD CVS/Heart: RRR, normal S1S2, pulses present bilaterally Chest/Lungs: CTA B, Symmetrical chest expansion, good air entry bilaterally GI/Abdomen: soft, NTND, good bowel sounds, no guarding or rebound /Bladder: no suprapubic tenderness, no CVA or paraspinal tenderness Extermity/Skin: rash under pannus, multiple back, thigh pressure ulcer varying stages MSK: FROM x 4 Neuro: CN 2-12 grossly intact, no new focal deficits Psych: calm, poor insight - Constitutional Vitals: Temp Pulse Resp BP Pulse Ox 97.6 F 87 20 143/103 94 07/24/18 16:08 07/24/18 16:08 07/24/18 16:08 07/24/18 16:08 07/24/18 16:08 General appearance: Present: no acute distress Results - Labs CBC & Chem 7: 07/23/18 03:56 07/24/18 10:18 Labs: Laboratory Last Values WBC 16.1 K/mm3 (4.5-11.0) H 07/23/18 03:56 RBC 5.00 M/mm3 (3.65-5.03) 07/23/18 03:56 Hgb 14.5 gm/dl (11.8-15.2) 07/23/18 03:56 Hct 43.9 % (35.5-45.6) 07/23/18 03:56 MCV 88 fl (84-94) 07/23/18 03:56 MCH 29 pg (28-32) 07/23/18 03:56 MCHC 33 % (32-34) 07/23/18 03:56 RDW 14.8 % (13.2-15.2) 07/23/18 03:56 Plt Count 351 K/mm3 (140-440) 07/23/18 03:56 Lymph % (Auto) 21.4 % (13.4-35.0) 07/23/18 03:56 [place] % (Auto) 11.7 % (0.0-7.3) H 07/23/18 03:56 Eos % (Auto) 1.6 % (0.0-4.3) 07/23/18 03:56 Baso % (Auto) 0.5 % (0.0-1.8) 07/23/18 03:56 Lymph # 3.4 K/mm3 (1.2-5.4) 07/23/18 03:56 [place] # 1.9 K/mm3 (0.0-0.8) H 07/23/18 03:56 Eos # 0.3 K/mm3 (0.0-0.4) 07/23/18 03:56 Baso # 0.1 K/mm3 (0.0-0.1) 07/23/18 03:56 Seg Neutrophils % 64.8 % (40.0-70.0) 07/23/18 03:56 Seg Neutrophils # 10.4 K/mm3 (1.8-7.7) H 07/23/18 03:56 Sodium 140 mmol/L (137-145) 07/24/18 10:18 Potassium 3.3 mmol/L (3.6-5.0) L 07/24/18 10:18 Chloride 101.4 mmol/L (98-107) 07/24/18 10:18 Carbon Dioxide 26 mmol/L (22-30) 07/24/18 10:18 Anion Gap 16 mmol/L 07/24/18 10:18 BUN 23 mg/dL (9-20) H 07/24/18 10:18 Creatinine 1.2 mg/dL (0.8-1.5) 07/24/18 10:18 Estimated GFR > 60 ml/min 07/24/18 10:18 BUN/Creatinine Ratio 19 % 07/24/18 10:18 Glucose 147 mg/dL (75-100) H 07/24/18 10:18 Calcium 8.7 mg/dL (8.4-10.2) 07/24/18 10:18 Total Creatine Kinase 228 units/L (55-170) H 07/23/18 03:56 CK-MB (CK-2) 4.9 ng/mL (0.0-4.0) H 07/23/18 03:56 CK-MB (CK-2) Rel Index 2.1 (0-4) 07/23/18 03:56 Troponin T 0.023 ng/mL (0.00-0.029) 07/23/18 03:56 Urine Color Vanessa (Yellow) 07/22/18 18:50 Urine Turbidity Cloudy (Clear) 07/22/18 18:50 Urine pH 7.0 (5.0-7.0) 07/22/18 18:50 Ur Specific [place] 1.019 (1.003-1.030) 07/22/18 18:50 Urine Protein 100 mg/dl mg/dL (Negative) 07/22/18 18:50 Urine Glucose (UA) Neg mg/dL (Negative) 07/22/18 18:50 Urine Ketones Neg mg/dL (Negative) 07/22/18 18:50 Urine Blood Mod (Negative) 07/22/18 18:50 Urine Nitrite Neg (Negative) 07/22/18 18:50 Urine Bilirubin Neg (Negative) 07/22/18 18:50 Urine Urobilinogen 2.0 mg/dL (<2.0) 07/22/18 18:50 Ur Leukocyte Esterase Lg (Negative) 07/22/18 18:50 Urine WBC (Auto) > 182.0 /HPF (0.0-6.0) H 07/22/18 18:50 Urine RBC (Auto) 17.0 /HPF (0.0-6.0) 07/22/18 18:50 U Epithel Cells (Auto) 2.0 /HPF (0-13.0) 07/22/18 18:50 WBC Casts 18 /LPF 07/22/18 18:50 Urine Mucus 2+ /HPF 07/22/18 18:50 Urine Creatinine 374.5 mg/dL (0.1-20.0) H 07/23/18 11:30 Urine Sodium 15 mmol/L 07/23/18 11:30 Urine Potassium 88.52 mmol/L 07/23/18 11:30 Urine Chloride 11.2 mmolL (110-250) L 07/23/18 11:30 Salicylates < 0.3 mg/dL (2.8-20.0) L 07/22/18 18:51 Urine Opiates Screen Presumptive negative 07/22/18 18:50 Urine Methadone Screen Presumptive negative 07/22/18 18:50 Acetaminophen < 5.0 ug/mL (10.0-30.0) L 07/22/18 18:51 Ur Barbiturates Screen Presumptive negative 07/22/18 18:50 Ur Phencyclidine Scrn Presumptive negative 07/22/18 18:50 Ur Amphetamines Screen Presumptive negative 07/22/18 18:50 U Benzodiazepines Scrn Presumptive negative 07/22/18 18:50 Urine Cocaine Screen Presumptive positive 07/22/18 18:50 U Marijuana (THC) Screen Presumptive negative 07/22/18 18:50 Drugs of Abuse Note Disclamer 07/22/18 18:50 Plasma/Serum Alcohol < 0.01 % (0-0.07) 07/22/18 18:51 Nutrition/Malnutrition Assess - Dietary Evaluation Nutrition/Malnutrition Findings: Nutrition Notes Start: 07/24/18 11:39 Freq: Status: Active Protocol: Document 07/24/18 11:45 CT (Rec: 07/24/18 12:19 CT [id number]) Co-Sign 01/31/19 11:45 LP Nutrition Notes Need for Assessment generated from: MST Education Initial or Follow up Brief Note Current Diagnosis Coronary Artery Disease Hypertension Other Pertinent Diagnosis Gout, UTI, schizophrenia, depression Current Diet cardiac Labs/Tests Glucose: 135 Subjective/Other Information RD screen for new onset DM education and skin risk. Evidence of DM not found in chart. Felix score = 19. Nutrition Intervention Revisit per MD consult or patient Sign Off request:
[2018-07-24] MEDS: ABILIFY PO SCH (22:00)
[2018-07-24] MEDS: DESYREL PO PRN (22:02)
[2018-07-25] MEDS: TYLENOL PO PRN (01:20)
[2018-07-25] MEDS: DUONEB *Not for PRN Use IH SCH (02:44)
[2018-07-25] MEDS: NACL 0.9% 1000 ML 1,000 ML IV SCH (05:50)
[2018-07-25 08:42] LABS: BUN/Creatinine Ratio 21; Blood Urea Nitrogen 17 mg/dL (9-20); Calcium 8.6 mg/dL (8.4-10.2); Hemolysis Index 10
--- NOTE | 2018-07-25 08:52 | Progress Note ---
Assessment and Plan - Patient Problems (1) Acute kidney injury Current Visit: Yes Status: Acute Plan to address problem: Acute kidney injury, likely prerenal vs ATN in the setting of urinary tract infection, decreased by mouth intake, and chronic NSAID use. He may have evidence of acute tubular necrosis. The catheter in place for accurate monitoring of intake and urine output. Ultrasound pending at this time. patient Continues on gentle IV fluids with normal saline at 100 mL an hour. Avoid nephrotoxins. Counseled patient importance of avoiding chronic NSAIDs. We will monitor renal function daily. Urinalysis reviewed. Urine culture indica ting gram (-) jv. Renal function is essentially back to baseline. From a renal standpoint patient is stable. Need to follow up with nephrology in 4 weeks post discharge We will sign off at this time. Please feel free to call back with any questions. (2) Hypertension Current Visit: No Status: Chronic Qualifiers: Hypertension type: essential hypertension Qualified Code(s): I10 - Essential (primary) hypertension Plan to address problem: Continue current regimen. (3) Chest pain Current Visit: Yes Status: Acute Plan to address problem: cardiology evaluation noted. Serial troponins noted. Per cardiology, chest pain likely musculoskeletal in origin. Chest pain has resolved. (4) UTI (urinary tract infection) Current Visit: Yes Status: Acute Plan to address problem: Antibiotics to be dosed per decreased renal clearance (5) Suicidal ideation Current Visit: Yes Status: Acute Plan to address problem: 1013 initiated and sitters at bedside. Psychiatry evaluation noted, (6) Morbid obesity Current Visit: Yes Status: Chronic Plan to address problem: Counseled patient on importance of weight loss and dietary intervention. Subjective Date of service: 07/25/18 Principal diagnosis: cp Interval history: No acute issues overnight. Labs noted and are improved and essentially back to baseline. Pending re-evaluation from psych. Objective - Vital Signs Vital signs: Vital Signs - 12hr 07/24/18 07/24/18 07/24/18 22:00 22:12 22:17 Temperature Pulse Rate [ 88 Anterior Bilateral Throughout] Respiratory Rate Respiratory 20 Rate [Abdomen] Respiratory 19 Rate [Anterior Bilateral Throughout] Respiratory 20 Rate [Left Chest] Respiratory 20 Rate [Lower Back] Respiratory 20 Rate [Right Hip ] Blood Pressure O2 Sat by Pulse 94 Oximetry 07/24/18 07/25/18 07/25/18 22:26 01:20 02:20 Temperature 97.7 F Pulse Rate [ Anterior Bilateral Throughout] Respiratory 24 20 18 Rate Respiratory Rate [Abdomen] Respiratory Rate [Anterior Bilateral Throughout] Respiratory Rate [Left Chest] Respiratory Rate [Lower Back] Respiratory Rate [Right Hip ] Blood Pressure 125/72 O2 Sat by Pulse Oximetry 07/25/18 07/25/18 02:49 04:56 Temperature 97.7 F Pulse Rate [ Anterior Bilateral Throughout] Respiratory 24 Rate Respiratory Rate [Abdomen] Respiratory Rate [Anterior Bilateral Throughout] Respiratory Rate [Left Chest] Respiratory Rate [Lower Back] Respiratory Rate [Right Hip ] Blood Pressure 133/62 O2 Sat by Pulse 94 Oximetry - General Appearance General appearance: well-developed, well-nourished, appears stated age, obese EENT: ATNC, PERRL Neck: no JVD, no thyromegaly Respiratory: Present: Clear to Ascultation, Normal Exam Cardiology: regular, S1S2 Gastrointestinal: normal, normoactive bowel sounds Integumentary: no rash, warm and dry Neurologic: no focal deficit, no asterixis, alert and oriented x3 Musculoskeletal: deferred, other (-edema ) Psychiatric: mood/affect appropriate, cooperative - Lab 07/23/18 03:56 07/25/18 08:17 Most recent lab results Calcium 8.6 mg/dL (8.4-10.2) 07/25/18 08:17 Urine Creatinine 374.5 mg/dL (0.1-20.0) H 07/23/18 11:30 Urine Sodium 15 mmol/L 07/23/18 11:30 - Allied health notes Allied health notes reviewed: nursing Medications & Allergies - Medications Allergies/Adverse Reactions: Allergies No Known Allergies Allergy (Verified 05/26/16 12:55) Home Medications: Home Medications Medication Instructions Recorded Confirmed Last Taken Type ARIPiprazole [Abilify TAB] 5 mg PO QAM 09/03/17 07/23/18 07/22/18 History traZODone [Desyrel] 150 mg PO QHS 09/03/17 07/23/18 07/22/18 History AtorvaSTATin [Lipitor] 40 mg PO QHS 06/03/18 07/23/18 07/22/18 History FLUoxetine HCL [PROzac] 40 mg PO QDAY 06/03/18 07/23/18 07/22/18 History FLUoxetine [PROzac] 20 mg PO QDAY 06/03/18 07/23/18 07/22/18 History Furosemide [Lasix] 20 mg PO QAM 06/03/18 07/23/18 07/22/18 History Lisinopril [Zestril TAB] 10 mg PO QDAY 06/03/18 07/23/18 07/22/18 History NIFEdipine XL [Procardia Xl] 90 mg PO QDAY 06/03/18 07/23/18 07/22/18 History Pantoprazole [Protonix TAB] 40 mg PO QDAY 06/03/18 07/23/18 07/22/18 History ARIPiprazole [Abilify TAB] 5 mg PO QAM tablet 06/04/18 07/23/18 07/22/18 Rx AtorvaSTATin [Lipitor] 40 mg PO QHS tablet 06/04/18 07/23/18 07/22/18 Rx Furosemide [Lasix TAB] 20 mg PO QAM tablet 06/04/18 07/23/18 07/22/18 Rx Lisinopril [Zestril TAB] 10 mg PO QDAY tablet 06/04/18 07/23/18 07/22/18 Rx oxyCODONE /ACETAMINOPHEN [Percocet 1 tab PO Q6H PRN #12 tablet 06/04/18 07/23/18 07/22/18 Rx 5/325 mg] Active Medications: Generic Name Dose Route Start Last Admin Trade Name Freq PRN Reason Stop Dose Admin Acetaminophen 650 mg 07/22/18 21:36 07/25/18 01:20 Tylenol PO 650 mg Q4H PRN Administration Pain MILD(1-3)/Fever >100.5/BYNUM Amlodipine Besylate 5 mg 07/24/18 10:00 07/24/18 10:32 Norvasc PO 5 mg QDAY LEV Administration Aripiprazole 5 mg 07/23/18 22:00 07/24/18 22:00 Abilify PO 5 mg QHS LEV Administration Ceftriaxone Sodium 1 gm in 50 mls @ 100 mls/hr 07/23/18 10:00 07/24/18 10:32 Rocephin/Ns 1 Gm/50 Ml IV 100 mls/hr Q24HR LEV Administration Protocol Sodium Chloride 1,000 mls @ 100 mls/hr 07/23/18 11:00 07/25/18 05:50 Nacl 0.9% 1000 Ml IV 100 mls/hr DIRECT LEV Administration Isosorbide Mononitrate 30 mg 07/24/18 13:00 07/24/18 14:31 Imdur PO 30 mg QDAY LEV Administration Ondansetron HCl 4 mg 07/22/18 21:36 Zofran IV Q8H PRN Nausea And Vomiting Sodium Chloride 10 ml 07/22/18 22:00 07/24/18 22:02 Sodium Chloride Flush Syringe 10 Ml IV 10 ml BID LEV Administration Sodium Chloride 10 ml 07/22/18 21:36 Sodium Chloride Flush Syringe 10 Ml IV PRN PRN LINE FLUSH Trazodone HCl 100 mg 07/23/18 20:19 07/24/18 22:02 Desyrel PO 100 mg QHS PRN Administration Insomnia
[2018-07-25] MEDS: ROCEPHIN/NS 1 GM/50 ML 1 GM/50 ML BAG IV SCH (11:02)
[2018-07-25] MEDS: IMDUR PO SCH (11:03)
[2018-07-25] MEDS: SODIUM CHLORIDE FLUSH SYRINGE 10 ML IV SCH (11:04)
[2018-07-25] MEDS: NORVASC PO SCH (11:04)
--- NOTE | 2018-07-25 11:19 | Progress Note ---
Assessment and Plan Assessment and plan: Patient is a 53 yo man with a history of hypertension, CAD, CHF, Gout, chronic back pain, morbid obesity, depression and Schizophrenia who presented to [facility] ED with Chest pains, Suicidal Ideations and dysuria. He was placed under a 1013 psych hold. He admits to taking chronic ibuprofen up to 3-4 tablets daily secondary to chronic left hip pain and back pain. He does have pressure ulcers in his back and thighs. Initially Creatinine on admission was 0.9 and following day the Creatinine increased to 2.0. Nephrology consulted. * Renal Ultrasound limitied due to patient's body habitus, a suboptimally visualized cyst is noted in the lower pole left kidney measuring 1/6 cm, comparision with any prior studies would be of help, otherwise a CT abd pre and post contrast maybe recommended. (I would not do contrast CT scan due to recovery from ARF/aTN) -Chest pains, msk/costochondritis related per Cardiology, resolved -UTI with sepsis, poa: treated with iv abx, follow cultures==>Proteus, switch IV rocephin to po ceftin, end date 07/29/18 and Remove kaur -ARF with ATN suspected, poa: resolved -Suicidal Ideation: consulted Mental Health -Abdominal pressure wound: Wound care treated -Cocaine on UDS: supportive care and counseling done, next day he said he was unable of cocaine in his system -Gross Hematuria resolved most likely related to UTI, renal u/s did not mention nephrolithiasis or obstruction. 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 Follow-up on current diagnosis of chest pains. Overnight uneventful. Patient denies any shortness breath, nausea/vomiting or severe headaches. Imaging, nursing note, chart, labs and old chart reviewed. Discussed with patient. He is under 1013 psych hold. Sitter at bedside. Hospitalist Physical - Physical exam Narrative exam: Gen: WDWN, NAD, Awake, Alert, Orientated, bmi 57.5 HEENT: NCAT, EOMI, PERRL, OP Clear Neck: supple, no adenopathy, no thyromegaly, no JVD CVS/Heart: RRR, normal S1S2, pulses present bilaterally Chest/Lungs: CTA B, Symmetrical chest expansion, good air entry bilaterally GI/Abdomen: soft, NTND, good bowel sounds, no guarding or rebound /Bladder: no suprapubic tenderness, no CVA or paraspinal tenderness Extermity/Skin: rash under pannus, multiple back, thigh pressure ulcer varying stages MSK: FROM x 4 Neuro: CN 2-12 grossly intact, no new focal deficits Psych: calm, poor insight - Constitutional Vitals: Temp Pulse Resp BP Pulse Ox 97.7 F 88 24 133/62 94 07/25/18 04:56 07/25/18 11:04 07/25/18 04:56 07/25/18 11:04 07/25/18 02:49 General appearance: Present: no acute distress Results - Labs CBC & Chem 7: 07/23/18 03:56 07/25/18 08:17 Labs: Laboratory Last Values WBC 16.1 K/mm3 (4.5-11.0) H 07/23/18 03:56 RBC 5.00 M/mm3 (3.65-5.03) 07/23/18 03:56 Hgb 14.5 gm/dl (11.8-15.2) 07/23/18 03:56 Hct 43.9 % (35.5-45.6) 07/23/18 03:56 MCV 88 fl (84-94) 07/23/18 03:56 MCH 29 pg (28-32) 07/23/18 03:56 MCHC 33 % (32-34) 07/23/18 03:56 RDW 14.8 % (13.2-15.2) 07/23/18 03:56 Plt Count 351 K/mm3 (140-440) 07/23/18 03:56 Lymph % (Auto) 21.4 % (13.4-35.0) 07/23/18 03:56 [place] % (Auto) 11.7 % (0.0-7.3) H 07/23/18 03:56 Eos % (Auto) 1.6 % (0.0-4.3) 07/23/18 03:56 Baso % (Auto) 0.5 % (0.0-1.8) 07/23/18 03:56 Lymph # 3.4 K/mm3 (1.2-5.4) 07/23/18 03:56 [place] # 1.9 K/mm3 (0.0-0.8) H 07/23/18 03:56 Eos # 0.3 K/mm3 (0.0-0.4) 07/23/18 03:56 Baso # 0.1 K/mm3 (0.0-0.1) 07/23/18 03:56 Seg Neutrophils % 64.8 % (40.0-70.0) 07/23/18 03:56 Seg Neutrophils # 10.4 K/mm3 (1.8-7.7) H 07/23/18 03:56 Sodium 141 mmol/L (137-145) 07/25/18 08:17 Potassium 3.6 mmol/L (3.6-5.0) 07/25/18 08:17 Chloride 103.1 mmol/L (98-107) 07/25/18 08:17 Carbon Dioxide 28 mmol/L (22-30) 07/25/18 08:17 Anion Gap 14 mmol/L 07/25/18 08:17 BUN 17 mg/dL (9-20) 07/25/18 08:17 Creatinine 0.8 mg/dL (0.8-1.5) 07/25/18 08:17 Estimated GFR > 60 ml/min 07/25/18 08:17 BUN/Creatinine Ratio 21 % 07/25/18 08:17 Glucose 117 mg/dL (75-100) H 07/25/18 08:17 Calcium 8.6 mg/dL (8.4-10.2) 07/25/18 08:17 Total Creatine Kinase 228 units/L (55-170) H 07/23/18 03:56 CK-MB (CK-2) 4.9 ng/mL (0.0-4.0) H 07/23/18 03:56 CK-MB (CK-2) Rel Index 2.1 (0-4) 07/23/18 03:56 Troponin T 0.023 ng/mL (0.00-0.029) 07/23/18 03:56 Urine Color Vanessa (Yellow) 07/22/18 18:50 Urine Turbidity Cloudy (Clear) 07/22/18 18:50 Urine pH 7.0 (5.0-7.0) 07/22/18 18:50 Ur Specific [place] 1.019 (1.003-1.030) 07/22/18 18:50 Urine Protein 100 mg/dl mg/dL (Negative) 07/22/18 18:50 Urine Glucose (UA) Neg mg/dL (Negative) 07/22/18 18:50 Urine Ketones Neg mg/dL (Negative) 07/22/18 18:50 Urine Blood Mod (Negative) 07/22/18 18:50 Urine Nitrite Neg (Negative) 07/22/18 18:50 Urine Bilirubin Neg (Negative) 07/22/18 18:50 Urine Urobilinogen 2.0 mg/dL (<2.0) 07/22/18 18:50 Ur Leukocyte Esterase Lg (Negative) 07/22/18 18:50 Urine WBC (Auto) > 182.0 /HPF (0.0-6.0) H 07/22/18 18:50 Urine RBC (Auto) 17.0 /HPF (0.0-6.0) 07/22/18 18:50 U Epithel Cells (Auto) 2.0 /HPF (0-13.0) 07/22/18 18:50 WBC Casts 18 /LPF 07/22/18 18:50 Urine Mucus 2+ /HPF 07/22/18 18:50 Urine Creatinine 374.5 mg/dL (0.1-20.0) H 07/23/18 11:30 Urine Sodium 15 mmol/L 07/23/18 11:30 Urine Potassium 88.52 mmol/L 07/23/18 11:30 Urine Chloride 11.2 mmolL (110-250) L 07/23/18 11:30 Salicylates < 0.3 mg/dL (2.8-20.0) L 07/22/18 18:51 Urine Opiates Screen Presumptive negative 07/22/18 18:50 Urine Methadone Screen Presumptive negative 07/22/18 18:50 Acetaminophen < 5.0 ug/mL (10.0-30.0) L 07/22/18 18:51 Ur Barbiturates Screen Presumptive negative 07/22/18 18:50 Ur Phencyclidine Scrn Presumptive negative 07/22/18 18:50 Ur Amphetamines Screen Presumptive negative 07/22/18 18:50 U Benzodiazepines Scrn Presumptive negative 07/22/18 18:50 Urine Cocaine Screen Presumptive positive 07/22/18 18:50 U Marijuana (THC) Screen Presumptive negative 07/22/18 18:50 Drugs of Abuse Note Disclamer 07/22/18 18:50 Plasma/Serum Alcohol < 0.01 % (0-0.07) 07/22/18 18:51 Nutrition/Malnutrition Assess - Dietary Evaluation Nutrition/Malnutrition Findings: Nutrition Notes Start: 07/24/18 11:39 Freq: Status: Active Protocol: Document 07/24/18 11:45 CT (Rec: 07/24/18 12:19 CT [id number]) Co-Sign 07/24/18 11:45 LP Nutrition Notes Need for Assessment generated from: MST Education Initial or Follow up Brief Note Current Diagnosis Coronary Artery Disease Hypertension Other Pertinent Diagnosis Gout, UTI, schizophrenia, depression Current Diet cardiac Labs/Tests Glucose: 135 Subjective/Other Information RD screen for new onset DM education and skin risk. Evidence of DM not found in chart. Felix score = 19. Nutrition Intervention Revisit per MD consult or patient Sign Off request:
--- NOTE | 2018-07-25 14:24 | Progress Note ---
Subjective - Reason for Consult Consult date: 07/25/18 Reason for consult: Psychiatry Follow-up - Chief Complaint Chief complaint: "Hello" 3 year old male who presents to the emergency room with chest pain and suicidal ideations without plan. This patient is known to me. Today the patient is calm and cooperative during the assessment. He stated that he does not want to kill himself. He stated that he look forward to being discharge and will follow up with [facility] for outpatient psy services. He denies SI/HI's and AVH's. He denies any side effects of his medications. Mental Status Exam - Vital signs Last Vital Signs Temp 97.9 F 07/25/18 12:15 Pulse 88 07/25/18 11:04 Resp 20 07/25/18 12:15 BP 139/94 07/25/18 12:15 Pulse Ox 94 07/25/18 02:49 - Exam Narrative exam: MSE: Appearance: calm, cooperative Behavior: regular eye contact Speech: regular rate and tone Mood: "okay" Affect: congruent to mood Thought Process: linear Thought Content: denies SI/HI's and AVH's Motor Activity: ambulatory Cognition: A/O x3 Insight: appropriate Judgment: appropriate Assessment and Plan Impression: Unspecified Mood DO with psy features. Substance Use DO (cocaine). Today the patent is calm and cooperative during the assessment. The patient is grieving the of his mother. The patient is no threat to self. DDx: Schizoaffective Disoder, Bipolar Type, R/O Substance Induced Psy/mood DO Recommendation/Plan: Rescind 1013. Continue Abilify 5 mg PO HS for mood/psychosis and Trazodone 100 mg PO HS PRN for sleep. Discussed possible metabolic side effects of Abilify with the patient. Discussed possible suicidality/medication induced lizzy/priapism with the patient reference Trazodone. Dispo: The patient can follow up with [facility] for outpatient psy services. Will staff with Dr Bridges.
--- NOTE | 2018-07-25 15:09 | Discharge Summary ---
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 spotter 07/22/18 Consult to Physician [CONS] Routine Comment: Consulting Provider: MENDOZA LUCIA Physician Instructions: Reason For Exam: cp 07/22/18 23:29 Consult to Wound/ET Nurse [CONS] Routine Reason For Exam: wound eval 07/23/18 08:56 Consult to Physician [CONS] Routine Comment: Consulting Provider: LELAND HIGGINS Physician Instructions: Reason For Exam: ARF Primary care physician: JULIAN SLOAN Hospitalization Condition: Stable Hospital course: Patient is a 53 yo man with a history of hypertension, CAD, CHF, Gout, chronic back pain, morbid obesity, depression and Schizophrenia who presented to [facility] ED with Chest pains, Suicidal Ideations and dysuria. He was placed under a 1013 psych hold. He admits to taking chronic ibuprofen up to 3-4 tablets daily secondary to chronic left hip pain and back pain. He does have pressure ulcers in his back and thighs. Initially Creatinine on admission was 0.9 and following day the Creatinine increased to 2.0. Nephrology consulted. * Renal Ultrasound limited due to patient's body habitus, a suboptimally visualized cyst is noted in the lower pole left kidney measuring 1/6 cm, comparision with any prior studies would be of help, otherwise a CT abd pre and post contrast maybe recommended. (I would not do contrast CT scan due to recovery from ARF/aTN) -Chest pains, msk/costochondritis related per Cardiology, resolved -UTI with sepsis, poa: treated with iv abx, follow cultures==>Proteus, switch IV rocephin to po ceftin, end date 07/29/18 and Remove kaur -ARF with ATN suspected, poa: resolved -Suicidal Ideation: consulted Mental Health -Abdominal pressure wound: Wound care treated -Cocaine on UDS: supportive care and counseling done, next day he said he was unable of cocaine in his system -Gross Hematuria resolved most likely related to UTI, renal u/s did not mention nephrolithiasis or obstruction. -Morbid obese, bmi 57.5: consult [facility] cleared for Inpatient psych==> psych rescinded 1013, will discharge home Disposition: DC- TO HOME OR SELFCARE Time spent for discharge: 36 minutes Core Measure Documentation - Palliative Care Palliative Care/ Comfort Measures: Not Applicable - Core Measures Any of the following diagnoses?: none - VTE Discharge Requirements Deep Vein Thrombosis/Pulmonary Embolism Present on Admission: No Has pt received <5 days of overlap therapy or INR<2.0: No Anticoagulant overlap therapy prescribed at discharge: No Contraindication No Overlap Therapy order at DC: Not Indicated Exam - Physical Exam Narrative exam: Gen: WDWN, NAD, Awake, Alert, Orientated, bmi 57.5 HEENT: NCAT, EOMI, PERRL, OP Clear Neck: supple, no adenopathy, no thyromegaly, no JVD CVS/Heart: RRR, normal S1S2, pulses present bilaterally Chest/Lungs: CTA B, Symmetrical chest expansion, good air entry bilaterally GI/Abdomen: soft, NTND, good bowel sounds, no guarding or rebound /Bladder: no suprapubic tenderness, no CVA or paraspinal tenderness Extermity/Skin: rash under pannus, multiple back, thigh pressure ulcer varying stages MSK: FROM x 4 Neuro: CN 2-12 grossly intact, no new focal deficits Psych: calm, poor insight - Constitutional Vitals: Temp Pulse Resp BP Pulse Ox 97.9 F 88 20 139/94 94 07/25/18 12:15 07/25/18 11:04 07/25/18 12:15 07/25/18 12:15 07/25/18 10:00 Plan Activity: other (no strenous activity until cleared by ) Diet: low salt Follow up with: JULIAN SLOAN MD [Primary Care Provider] - 3-5 Days ALEJANDRA PATRICK MD [Staff Physician] - 7 Days LELAND HIGGINS MD [Staff Physician] - 7 Days MENDOZA LUCIA MD [Staff Physician] - 7 Days Prescriptions: ARIPiprazole [Abilify TAB] 5 mg PO QHS #30 tablet traZODone [Desyrel] 100 mg PO QHS PRN #30 tablet PRN Reason: Insomnia Acetaminophen [Acetaminophen TAB] 650 mg PO Q4H PRN #10 tablet PRN Reason: Non Cardiac Pain Or Temp>100.5 amLODIPine [Norvasc] 5 mg PO QDAY #30 tablet cefUROXime [Ceftin] 500 mg PO Q12HR #8 tablet ISOSORBIDE MONOnitrate [Imdur ER] 30 mg PO QDAY #30 tablet oxyCODONE /ACETAMINOPHEN [Percocet 5/325 mg] 1 tab PO Q6H PRN #12 tablet PRN Reason: Pain , Severe (7-10)
[2018-07-26] MEDS ORDERED: CEFTIN PO SCH (10:00)
[2018-07-27 11:25] VITALS: BP 126/88
== END 2018-07-25 18:05 | disposition home or self-care (01) | DRG 871 ==
LOC: ED 17:21 → 4A 21:36 → 3A 07-24 19:37
PROVIDERS: ADMIT Internal Medicine; ATTEND Internal Medicine
DX: A41.9 Sepsis, unspecified organism (principal); N17.0 Acute kidney failure with tubular necrosis; N39.0 Urinary tract infection, site not specified; Z68.43 Body mass index [BMI] 50.0-59.9, adult; I25.110 Atherosclerotic heart disease of native coronary artery with unstable angina pectoris; F14.10 Cocaine abuse, uncomplicated; F32.9 Major depressive disorder, single episode, unspecified; M10.9 Gout, unspecified; F20.9 Schizophrenia, unspecified; J98.8 Other specified respiratory disorders; I50.9 Heart failure, unspecified; I11.0 Hypertensive heart disease with heart failure; E66.01 Morbid (severe) obesity due to excess calories; G89.29 Other chronic pain; M25.552 Pain in left hip; M54.9 Dorsalgia, unspecified; R31.0 Gross hematuria; M94.0 Chondrocostal junction syndrome [Tietze]; L89.109 Pressure ulcer of unspecified part of back, unspecified stage; Z82.49 Family history of ischemic heart disease and other diseases of the circulatory system; Z79.899 Other long term (current) drug therapy; Z90.49 Acquired absence of other specified parts of digestive tract; I25.2 Old myocardial infarction
CPT/HCPCS: 36415; 71045; 76770; 80048; 80307; 80320; 81001; 82436; 82550; 82553; 82570; 84133; 84300; 84484; 85025; 87076; 87086; 87186; 93005; 93010; 94640; 94760; G0378; G0480; J0696; J2405; J3010; J7030

== ENCOUNTER 2018-08-02 04:22 | Emergency (ER) | payer MEDICARE ==
[2018-08-02 05:15] LABS: Basophils # (Auto) 0.1 K/mm3 (0.0-0.1); Basophils % (Auto) 0.6 % (0.0-1.8); Eosinophils # (Auto) 0.2 K/mm3 (0.0-0.4); Hematocrit 44.8 % (35.5-45.6); Hemoglobin 14.8 gm/dl (11.8-15.2); Lymphocytes # (Auto) 3.1 K/mm3 (1.2-5.4); Lymphocytes % (Auto) 27.5 % (13.4-35.0); Mean Corpuscular HGB Conc 33 % (32-34); Mean Corpuscular Volume 88 fl (84-94); Monocytes # (Auto) 1.2 K/mm3 (0.0-0.8); Monocytes % (Auto) 10.6 % (0.0-7.3); Platelet Count 328 K/mm3 (140-440); Red Blood Count 5.12 M/mm3 (3.65-5.03); Red Cell Distribution Width 15.1 % (13.2-15.2)
[2018-08-02 05:30] LABS: BUN/Creatinine Ratio 14; Blood Urea Nitrogen 13 mg/dL (9-20); Calcium 9.1 mg/dL (8.4-10.2); Hemolysis Index 4
[2018-08-02 06:33] LABS: Bilirubin,Urine NEG (Negative); Blood,Urine SM (Negative); Color,Urine Yellow (Yellow); Mucus,Urine 2+ /HPF; Protein,Urine <15 mg/dL mg/dL (Negative)
[2018-08-02 06:44] LABS: Amphetamine Screen,Urine PRESUMPTIVE NEGATIVE; Benzodiazepines Screen,Urine PRESUMPTIVE NEGATIVE; Cannabinoid Screen,Urine PRESUMPTIVE NEGATIVE; Methadone Screen,Urine PRESUMPTIVE NEGATIVE; Opiate Screen,Urine PRESUMPTIVE NEGATIVE
--- NOTE | 2018-08-02 06:44 | Emergency Department Report ---
ED Psych HPI - General Chief Complaint: Psych Stated Complaint: HIP PAIN Time Seen by Provider: 08/02/18 06:42 Source: patient, EMS Mode of arrival: Stretcher - History of Present Illness Initial Comments: This is a 53-year-old man who lives in a detention. He is obviously attempting to obtain admission to a psychiatric facility. He states he was admitted to [facility] 2 months ago. According to Peter the mental health counselor he just remained in this facility last time he was here. I will check the records. In any case the patient is stating that he has thought of suicide although he has not formulated any plan. The patient complains of chronic hip pains and "arthritis. He states "I have an IV here" referring to his forearm and is requesting intravenous narcotics. I asked the patient what he usually takes for his chronic pain and he says he believes the strongest Percocet that you have. He was given Percocet 5. He was dissatisfied with this plan. Apparently he is on Prozac and Abilify and Desyrel. Obviously he has chronic psychiatric illness. He is morbidly obese. He states he has bedsores but refers to multiple excoriations on his abdomen. He tells me that he is able to get out of bed but doesn't feel like doing that right now. He lives at a detention. MD Complaint: suicidal ideation, other (chronic psychiatric disorder) -: year(s) Associated Psychiatric Symptoms: suicidal ideation History of same: Yes Quality: intermittent Improves With: none Worsens With: none Associated Symptoms: other (chronic hip pain) Treatments Prior to Arrival: placed on mental he If Self Harm: admits thoughts of - Related Data Home Medications Medication Instructions Recorded Confirmed Last Taken AtorvaSTATin [Lipitor] 40 mg PO QHS 06/03/18 08/02/18 07/22/18 FLUoxetine [PROzac] 20 mg PO QDAY 06/03/18 08/02/18 07/22/18 Previous Rx's Medication Instructions Recorded Last Taken Type ARIPiprazole [Abilify TAB] 5 mg PO QHS #30 tablet 07/25/18 Unknown Rx Acetaminophen [Acetaminophen TAB] 650 mg PO Q4H PRN #10 tablet 07/25/18 Unknown Rx ISOSORBIDE MONOnitrate [Imdur ER] 30 mg PO QDAY #30 tablet 07/25/18 Unknown Rx amLODIPine [Norvasc] 5 mg PO QDAY #30 tablet 07/25/18 Unknown Rx oxyCODONE /ACETAMINOPHEN [Percocet 1 tab PO Q6H PRN #12 tablet 07/25/18 Unknown Rx 5/325 mg] traZODone [Desyrel] 100 mg PO QHS PRN #30 tablet 07/25/18 Unknown Rx Allergies Allergy/AdvReac Type Severity Reaction Status Date / Time No Known Allergies Allergy Verified 05/26/16 12:55 ED Review of Systems ROS: Stated complaint: HIP PAIN Other details as noted in HPI Constitutional: denies: chills, fever Eyes: denies: eye pain, eye discharge, vision change ENT: denies: ear pain, throat pain Respiratory: denies: cough, shortness of breath, wheezing Cardiovascular: denies: chest pain, palpitations Endocrine: no symptoms reported Gastrointestinal: denies: abdominal pain, nausea, diarrhea Genitourinary: denies: urgency, dysuria Musculoskeletal: other (chronic hip pain). denies: back pain Skin: denies: rash, lesions Neurological: denies: headache, weakness, paresthesias Psychiatric: as per HPI, depression, suicidal thoughts. denies: anxiety Hematological/Lymphatic: denies: easy bleeding, easy bruising ED Past Medical Hx - Past Medical History Hx Hypertension: Yes Hx CVA: No Hx Heart Attack/AMI: Yes ("light heart attack" 2005) Hx Congestive Heart Failure: Yes Hx Diabetes: No Hx Deep Vein Thrombosis: No Hx GERD: No Hx Arthritis: Yes Hx Headaches / Migraines: No Hx Psychiatric Treatment: Yes (major depression; visual hallucinations; SI) Hx Asthma: No Hx COPD: No Hx Dementia: No Hx HIV: No Additional medical history: Gout, Morbid Obesity - Surgical History Hx Cholecystectomy: Yes Additional Surgical History: RIGHT KNEE (SCOPE). CIRCUMCISION -4 YEARS AGO - Social History Smoking Status: Never Smoker Substance Use Type: Cocaine, Other - Medications Home Medications: Home Medications Medication Instructions Recorded Confirmed Last Taken Type AtorvaSTATin [Lipitor] 40 mg PO QHS 06/03/18 08/02/18 07/22/18 History FLUoxetine [PROzac] 20 mg PO QDAY 06/03/18 08/02/18 07/22/18 History ARIPiprazole [Abilify TAB] 5 mg PO QHS #30 tablet 07/25/18 08/02/18 Unknown Rx Acetaminophen [Acetaminophen TAB] 650 mg PO Q4H PRN #10 tablet 07/25/18 08/02/18 Unknown Rx ISOSORBIDE MONOnitrate [Imdur ER] 30 mg PO QDAY #30 tablet 07/25/18 08/02/18 Unknown Rx amLODIPine [Norvasc] 5 mg PO QDAY #30 tablet 07/25/18 08/02/18 Unknown Rx oxyCODONE /ACETAMINOPHEN [Percocet 1 tab PO Q6H PRN #12 tablet 07/25/18 08/02/18 Unknown Rx 5/325 mg] traZODone [Desyrel] 100 mg PO QHS PRN #30 tablet 07/25/18 08/02/18 Unknown Rx ED Physical Exam - General Limitations: Physical Limitation General appearance: alert, in no apparent distress, obese - Head Head exam: Present: atraumatic, normocephalic - Eye Eye exam: Present: normal appearance. Absent: scleral icterus - ENT ENT exam: Present: mucous membranes moist - Neck Neck exam: Present: normal inspection. Absent: tenderness, meningismus - Respiratory Respiratory exam: Present: normal lung sounds bilaterally. Absent: respiratory distress - Cardiovascular Cardiovascular Exam: Present: regular rate, normal rhythm. Absent: systolic murmur, diastolic murmur, rubs, gallop - GI/Abdominal GI/Abdominal exam: Present: soft, rigid, normal bowel sounds, other (there are chronically excoriated areas on the abdomen. They're not superinfected.). Absent: distended, tenderness, guarding, rebound - Rectal Rectal exam: Present: deferred - Extremities Exam Extremities exam: Present: normal inspection. Absent: pedal edema, calf tendern ess - Back Exam Back exam: Present: normal inspection - Neurological Exam Neurological exam: Present: alert, oriented X3, CN II-XII intact. Absent: motor sensory deficit - Psychiatric Psychiatric exam: Present: normal mood, flat affect - Skin Skin exam: Present: warm, dry, normal color. Absent: intact (excoriated ulcers abdomen there are small), rash ED Course Vital Signs 08/02/18 08/02/18 04:34 05:34 Temperature 98.0 F 98.2 F Pulse Rate 92 H 94 H Respiratory 20 21 Rate Blood Pressure 148/108 Blood Pressure 135/89 [Left] O2 Sat by Pulse 97 96 Oximetry - Reevaluation(s) Reevaluation #1: I discussed the patient's presentation with Peter. He is poorly optimistic that this will be placed. However he does recommend a 1013 at this time. The patient will not be given IV antibiotics. I assume he is opiate dependent so th at will be continued as well as his usual medications. He will wait evaluation by the psychiatry staff. 08/02/18 07:51 ED Medical Decision Making - Lab Data Result diagrams: 08/02/18 05:02 08/02/18 05:02 Laboratory Results - last 24 hr 08/02/18 08/02/18 08/02/18 05:02 05:02 05:02 WBC RBC Hgb Hct MCV MCH MCHC RDW Plt Count Lymph % (Auto) Moore % (Auto) Eos % (Auto) Baso % (Auto) Lymph # Moore # Eos # Baso # Seg Neutrophils % Seg Neutrophils # Sodium 141 Potassium 3.4 L Chloride 99.4 Carbon Dioxide 31 H Anion Gap 14 BUN 13 Creatinine 0.9 Estimated GFR > 60 BUN/Creatinine Ratio 14 Glucose 118 H Calcium 9.1 Urine Color Urine Turbidity Urine pH Ur Specific [place] Urine Protein Urine Glucose (UA) Urine Ketones Urine Blood Urine Nitrite Urine Bilirubin Urine Urobilinogen Ur Leukocyte Esterase Urine WBC (Auto) Urine RBC (Auto) U Epithel Cells (Auto) Urine Mucus Salicylates < 0.3 L Acetaminophen < 5.0 L Plasma/Serum Alcohol 08/02/18 08/02/18 08/02/18 05:02 05:02 06:21 WBC 11.2 H RBC 5.12 H Hgb 14.8 Hct 44.8 MCV 88 MCH 29 MCHC 33 RDW 15.1 Plt Count 328 Lymph % (Auto) 27.5 Moore % (Auto) 10.6 H Eos % (Auto) 2.0 Baso % (Auto) 0.6 Lymph # 3.1 Moore # 1.2 H Eos # 0.2 Baso # 0.1 Seg Neutrophils % 59.3 Seg Neutrophils # 6.6 Sodium Potassium Chloride Carbon Dioxide Anion Gap BUN Creatinine Estimated GFR BUN/Creatinine Ratio Glucose Calcium Urine Color Yellow Urine Turbidity Clear Urine pH 6.0 Ur Specific [place] 1.016 Urine Protein <15 mg/dl Urine Glucose (UA) 50 Urine Ketones Neg Urine Blood Sm Urine Nitrite Neg Urine Bilirubin Neg Urine Urobilinogen 4.0 Ur Leukocyte Esterase Neg Urine WBC (Auto) 5.0 Urine RBC (Auto) 5.0 U Epithel Cells (Auto) 6.0 Urine Mucus 2+ Salicylates Acetaminophen Plasma/Serum Alcohol < 0.01 - EKG Data -: EKG Interpreted by Me EKG shows normal: sinus rhythm, axis, intervals, QRS complexes, ST-T waves - EKG Data Interpretation: no acute changes, other (motion artifact. Some suggestion of LVH.) Critical care attestation.: If time is entered above; I have spent that time in minutes in the direct care of this critically ill patient, excluding procedure time. ED Disposition Clinical Impression: Suicidal ideation, Cocaine abuse Schizophrenia Qualifiers: Schizophrenia type: other Qualified Code(s): F20.89 - Other schizophrenia; F20.8 - Other schizophrenia Depression Qualifiers: Depression Type: unspecified Qualified Code(s): F32.9 - Major depressive disorder, single episode, unspecified Opioid dependence Qualifiers: Substance use status: uncomplicated Qualified Code(s): F11.20 - Opioid dependence, uncomplicated Disposition: DC/TX-65 PSY HOSP/PSY UNIT Is pt being admited?: No Does the pt Need Aspirin: No Condition: Stable Referrals: EVAN LEON MD [Primary Care Provider] - 3-5 Days Time of Disposition: 08:03
[2018-08-02 07:11] LABS: Cocaine Screen,Urine PRESUMPTIVE POSITIVE
[2018-08-02] MEDS ORDERED: K-DUR PO ONE (07:52)
[2018-08-02] MEDS: PERCOCET 5/325 PO PRN ×3 (09:06→23:00)
--- NOTE | 2018-08-02 09:30 | Consultation ---
History of Present Illness - Reason for Consult Consult date: 08/02/18 Reason for consult: Mental Health Evaluation Requesting physician: EVAN RODRIGUEZ - Chief Complaint Chief complaint: "I might as well kill myself" - History of Present Psychiatric Illness 53-year-old AA male who presented to the ER for pain, AH's, and SI's. This patient is known to me. Today the patient is calm and cooperative durng the assessment. He stated that he is dealing with a lot of hip pain and this has caused him to be suicidal with a plan to overdose. He stated that he is experiencing voices, but cannot explain what they are saying. He stated that the voices are "extreme." He stated that he feel like he should be "six feet under" so he can join his parents. He stated that he hate living his life this way. He denies HI's and VH's. He denies erratic sleep and a poor appetite. He denies alcohol consumption (etoh). He was asked about cocaine use, he didn't want to discuss. Medications and Allergies Allergies Allergy/AdvReac Type Severity Reaction Status Date / Time No Known Allergies Allergy Verified 05/26/16 12:55 Home Medications Medication Instructions Recorded Confirmed Last Taken Type AtorvaSTATin [Lipitor] 40 mg PO QHS 06/03/18 08/02/18 07/22/18 History FLUoxetine [PROzac] 20 mg PO QDAY 06/03/18 08/02/18 07/22/18 History ARIPiprazole [Abilify TAB] 5 mg PO QHS #30 tablet 07/25/18 08/02/18 Unknown Rx Acetaminophen [Acetaminophen TAB] 650 mg PO Q4H PRN #10 tablet 07/25/18 08/02/18 Unknown Rx ISOSORBIDE MONOnitrate [Imdur ER] 30 mg PO QDAY #30 tablet 07/25/18 08/02/18 Unknown Rx amLODIPine [Norvasc] 5 mg PO QDAY #30 tablet 07/25/18 08/02/18 Unknown Rx oxyCODONE /ACETAMINOPHEN [Percocet 1 tab PO Q6H PRN #12 tablet 07/25/18 08/02/18 Unknown Rx 5/325 mg] traZODone [Desyrel] 100 mg PO QHS PRN #30 tablet 07/25/18 08/02/18 Unknown Rx Active Meds: Active Medications Amlodipine Besylate (Norvasc) 2.5 mg PO QDAY LEV Atorvastatin Calcium (Lipitor) 40 mg PO QHS LEV Fluoxetine HCl (Prozac) 20 mg PO QDAY LEV Furosemide (Lasix) 20 mg PO QDAY LEV Isosorbide Mononitrate (Imdur) 30 mg PO QDAY [facility] Oxycodone/Acetaminophen (Percocet 5/325) 1 tab PO Q6H PRN PRN Reason: Pain, Moderate (4-6) Last Admin: 08/02/18 09:06 Dose: 1 tab Documented by: Trazodone HCl (Desyrel) 100 mg PO QHS [facility] Past psychiatric history - Past Medical History Past Medical History: hypertension, other (Arthritis) Past Surgical History: No surgical history - past Psychiatric treatment and history psychiatric treatment history: Several inpatient psy settings. Denies a fam psy hx. - Social History Social history: other (Reside at a alf.) Mental Status Exam - Vital signs Last Vital Signs Temp 98.2 F 08/02/18 05:34 Pulse 94 H 08/02/18 05:34 Resp 21 08/02/18 05:34 BP 135/89 08/02/18 05:34 Pulse Ox 96 08/02/18 05:34 - Exam Narrative exam: MSE: Appearance: calm Behavior: regular eye contact Speech: regular rate and tone Mood: depressed, withdrawn Affect: flat Thought Process: circumstantial Thought Content: denies HI's and VH's Motor Activity: ambulatory Cognition: A/O x3 Insight: poor Judgment: poor Results Result Diagrams: 08/02/18 05:02 08/02/18 05:02 Abnormal lab results 08/02/18 08/02/18 08/02/18 Range/Units 05:02 05:02 05:02 WBC (4.5-11.0) K/mm3 RBC (3.65-5.03) M/mm3 [place] % (Auto) (0.0-7.3) % [place] # (0.0-0.8) K/mm3 Potassium 3.4 L (3.6-5.0) mmol/L Carbon Dioxide 31 H (22-30) mmol/L Glucose 118 H (75-100) mg/dL Salicylates < 0.3 L (2.8-20.0) mg/dL Acetaminophen < 5.0 L (10.0-30.0) ug/mL 08/02/18 Range/Units 05:02 WBC 11.2 H (4.5-11.0) K/mm3 RBC 5.12 H (3.65-5.03) M/mm3 [place] % (Auto) 10.6 H (0.0-7.3) % [place] # 1.2 H (0.0-0.8) K/mm3 Potassium (3.6-5.0) mmol/L Carbon Dioxide (22-30) mmol/L Glucose (75-100) mg/dL Salicylates (2.8-20.0) mg/dL Acetaminophen (10.0-30.0) ug/mL All other labs normal. Assessment and Plan Assessment and plan: Impression: Unspecified Mood DO with psy features. Substance Use DO (cocaine). Today the patent is calm during the assessment. DDx: Schizoaffective DO, Bipolar DO, Substance Induced Psy/Mood DO Recommendation/Plan: Continue 1013 and start home medications Abilify 5 mg PO HS for psychosis/mood, Prozac 20 mg PO daily for depression, and Trazodone 100 mg PO HS for sleep. Discussed possible metabolic side effects of Abilify with the patient. Discussed possible suicidality/medication induced lizzy/priapism with the patient reference Trazodone. Discussed possible suicidality/medication induced lizzy with the patient reference Prozac. Dispo: The patient was referred to inpatient psy services. Will staff with Dr Toya Trujillo.
[2018-08-02] MEDS: NORVASC PO SCH (10:20)
[2018-08-02] MEDS: LASIX PO SCH (10:20)
[2018-08-02] MEDS: ABILIFY PO SCH (10:20)
[2018-08-02] MEDS: PROzac PO SCH (10:24)
[2018-08-02] MEDS: IMDUR PO SCH (10:56)
[2018-08-02] MEDS: DESYREL PO SCH (23:00)
[2018-08-03] MEDS: PERCOCET 5/325 PO PRN ×3 (05:38→17:30)
[2018-08-03] MEDS: IMDUR PO SCH (10:30)
[2018-08-03] MEDS: ABILIFY PO SCH (10:36)
[2018-08-03] MEDS: NORVASC PO SCH (10:38)
[2018-08-03] MEDS: PROzac PO SCH (10:39)
[2018-08-03] MEDS: LASIX PO SCH (10:41)
--- NOTE | 2018-08-03 13:16 | Progress Note ---
Subjective - Reason for Consult Consult date: 08/03/18 Reason for consult: Psychiatry Follow-up - Chief Complaint Chief complaint: "Nothing has changed with me" 53-year-old AA male who presented to the ER for pain, AH's, and SI's. This patient is known to me. Today the patient is calm and cooperative during the assessment. He stated that life is good at this time. He continues to endorse SI's. He stated that the voices are still active. He denies HI's and VH's. He denies any side effects of his medications. Mental Status Exam - Vital signs Last Vital Signs Temp 98.1 F 08/03/18 01:00 Pulse 74 08/03/18 10:38 Resp 14 08/03/18 01:00 BP 138/80 08/03/18 10:38 Pulse Ox 100 08/03/18 01:00 - Exam Narrative exam: MSE: Appearance: calm, cooperative Behavior: regular eye contact Speech: regular rate and tone Mood: depressed, withdrawn Affect: flat Thought Process: circumstantial Thought Content: denies HI's and VH's Motor Activity: ambulatory Cognition: A/O x3 Insight: poor Judgment: poor Assessment and Plan Impression: Unspecified Mood DO with psy features. Substance Use DO (cocaine). Today the patent is calm and cooperative during the assessment. DDx: Schizoaffective DO, Bipolar DO, Substance Induced Psy/Mood DO Recommendation/Plan: Continue 1013 and Abilify 5 mg PO HS for psychosis/mood, Prozac 20 mg PO daily for depression, and Trazodone 100 mg PO HS for sleep. Discussed possible metabolic side effects of Abilify with the patient. Discussed possible suicidality/medication induced lizzy/priapism with the patient reference Trazodone. Discussed possible suicidality/medication induced lizzy with the patient reference Prozac. Dispo: The patient was referred to inpatient psy services. Will staff with Dr Toya Trujillo.
[2018-08-04] MEDS: DESYREL PO SCH (01:20)
[2018-08-04] MEDS: PERCOCET 5/325 PO PRN ×3 (01:21→16:57)
[2018-08-04] MEDS: IMDUR PO SCH (10:09)
[2018-08-04] MEDS: ABILIFY PO SCH (10:09)
[2018-08-04] MEDS: LASIX PO SCH (10:09)
[2018-08-04] MEDS: PROzac PO SCH (10:10)
[2018-08-04] MEDS: NORVASC PO SCH (10:10)
[2018-08-04 21:55] VITALS: BP 137/89
== END 2018-08-04 21:53 ==
LOC: EEVIPCON 04:22 → ED 04:22
DX: F39 Unspecified mood [affective] disorder (principal); F20.89 Other schizophrenia; F32.9 Major depressive disorder, single episode, unspecified; F11.20 Opioid dependence, uncomplicated; I11.0 Hypertensive heart disease with heart failure; I50.9 Heart failure, unspecified; I25.2 Old myocardial infarction; M19.90 Unspecified osteoarthritis, unspecified site; M10.9 Gout, unspecified; E66.01 Morbid (severe) obesity due to excess calories; Z68.43 Body mass index [BMI] 50.0-59.9, adult
CPT/HCPCS: 36415; 80048; 80307; 81001; 85025; 93005; 93010; 99285; A9270; G0480; 80320